=== PATIENT | female | born 1935 | race Caucasian/White ===

== ENCOUNTER 2020-07-26 11:55 | Emergency (ER) | payer MEDICARE, SELFPAY ==
[2020-07-26] VITALS (9 sets, daily range): BP systolic 105–172; BP diastolic 62–80; PULSE 66–82; RESP 16; TEMP 36.6; O2SAT 95–100
--- NOTE | 2020-07-26 12:24 | ECG_ITS ---
Measurements Intervals [place] Rate: 68 P: 44 PA: 147 QRS: 2 QRSD: 90 T: 4 QT: 397 QTc: 425 Interpretive Statements SINUS RHYTHM VOLTAGE CRITERIA FOR LVH NONSPECIFIC T-WAVE ABNORMALITY BASELINE WANDER- AVF BORDERLINE ECG Electronically Signed On 07-26-2020 12:27:04 SATELLITE TV TECHNICIAN INSTALLER by Jama Tavarez D.O.
[2020-07-26 13:05] LABS: Basophils Percent Auto 0.3 % (0.2-1.2); Eosinophils Absolute Auto 0.1 K/mm3 (0-0.3); Hematocrit 35.7 % (37.0-47.0); Hemoglobin 11.6 g/dL (12.0-15.0); Immature Granulocyte Absolute 0.03 K/mm3 (0.00-0.031); Immature Granulocyte Percent A 0.3 % (0-0.5); Lymphocytes Absolute Auto 0.85 K/mm3 (0.9-3.2); Lymphocytes Percent Auto 9.6 % (18.3-44.2); Mean Corpuscular HGB Conc 32.5 g/dl (32-36); Mean Corpuscular Hemoglobin 29.2 pg (26-34); Mean Corpuscular Volume 89.9 fl (80-100); Mean Platelet Volume 11.1 fl (7.4-10.4); Monocytes Absolute Auto 0.5 K/mm3 (0.1-0.6); Monocytes Percent Auto 5.4 % (2.6-8.5); Neutrophils Absolute Auto 7.4 K/mm3 (1.3-6.7); Neutrophils Percent Auto 83.4 % (45.5-73.1); Platelet Count Result 172 k/mm3 (150-375); Red Blood Count 3.97 M/mm3 (4.2-5.4); Red Cell Distribution Width 13.8 % (11.5-14.5); White Blood Count 8.9 K/mm3 (4.5-10.0)
[2020-07-26 13:16] LABS: Anion Gap 6 mmol/L (8-16); Blood Urea Nitrogen 18 mg/dL (7-17); Calcium 8.9 mg/dL (8.4-10.2); Carbon Dioxide 30 mmol/L (22-30); Chloride 102 mmol/L (98-107); Estimated CRCL calculation 34 ml/min; Estimated Glomerular Filt Rate 53; Glucose 131 mg/dL (65-105); Potassium 3.9 mmol/L (3.4-5.0); Sodium 138 mmol/L (137-145)
[2020-07-26] MEDS: LACTATED RINGERS 1,000 ML 999 ML IV CONT (14:49)
--- NOTE | 2020-07-26 15:17 | PC.NURSE ---
FOOD TRAY ORDERED FOR PT'
--- NOTE | 2020-07-26 15:28 | ED.DIZZY ---
HPI - Dizziness General Chief Complaint: Syncope Stated Complaint: syncopal Time Seen by Provider: 07/26/20 13:06 Source: patient Mode of arrival: ambulatory Limitations: no limitations History of Present Illness HPI Narrative: 85-year-old lady presents to the emergency department with complaints of feeling dizzy and nearly passing out. Patient states that she was at the [employer], after she was done getting her hair fixed she went to go stand up and nearly fell into the person sitting next to her. She endorses dizziness at this time, denies any lightheadedness or actually losing consciousness. Patient notes her has been sick at home as well as her daughter and she has been the primary caregiver for the both of them. Patient notes that she has not eaten or drank much today at all. Related Data Allergies Allergy/AdvReac Type Severity Reaction Status Date / Time Penicillins Allergy Hives Verified 07/26/20 12:24 Sulfa (Sulfonamide Allergy Hives Verified 07/26/20 12:24 Antibiotics) Review of Systems Review of Systems: Narrative: CONSTITUTIONAL: Denies fever, chills, or sweats. EYES: Denies visual changes, redness, or discharge. ENT: Denies rhinorrhea, congestion, sore throat, or otalgia. CARDIOVASCULAR: Denies chest pain, palpitations, or edema. RESPIRATORY: Denies cough or dyspnea. GASTROINTESTINAL: Denies abdominal pain, nausea, vomiting, or diarrhea. GENITOURINARY: Denies dysuria or hematuria. SKIN: Denies rash or itching. MUSCULOSKELETAL: Denies back pain, joint pain, or myalgia. NEUROLOGIC: Denies headache, numbness, dizziness, or weakness. PSYCHIATRIC: Denies anxiety or depression. Exam Narrative: Exam Narrative: GENERAL: Well-appearing, well-nourished, and in no acute distress. HEAD: Normocephalic, atraumatic. EYES: PERRLA and EOMI. ENT: Nares clear, no rhinorrhea or epistaxis. Mucous membranes moist. Oropharynx without tonsillar hypertrophy exudate or other lesions. Bilateral TMs pearly espitia nonbulging NECK: Supple. No adenopathy or masses. No carotid bruits or JVD CHEST: Clear to auscultation. No respiratory distress. No wheezes rales or rhonchi HEART: Regular rate and rhythm. No murmur heard. Normal peripheral pulses. ABDOMEN: Soft, nontender, nondistended, normal active bowel sounds. EXTREMITIES: Normal range of motion. No edema. SKIN: Warm, dry, no rash. NEURO: No focal deficits. Alert and oriented x3. PSYCH: Normal mood and affect. Course Reevaluation(s) Reevaluation #1: Patient resting comfortably at this time, she notes that after eating she does feel somewhat better, will plan for discharge at this time. Time: 15:30 Vital Signs Vital signs: Vital Signs Temperature 36.6 C 07/26/20 11:59 Pulse Rate 69 07/26/20 11:59 Respiratory Rate 16 07/26/20 11:59 Blood Pressure 105/72 07/26/20 11:59 Pulse Oximetry 100 07/26/20 11:59 Temperature 36.6 C 07/26/20 11:59 Pulse Rate 66 07/26/20 13:08 Respiratory Rate 16 07/26/20 11:59 Blood Pressure 137/65 07/26/20 13:08 Pulse Oximetry 100 07/26/20 11:59 MDM - Dizziness MDM Narrative Medical decision making narrative: In brief this is an 85-year-old female who presented to the emergency department with complaints of a near syncopal episode. Patient was found to be mildly dehydrated and given IV fluids. She also had not eaten yet today, after giving her something to eat patient noted that she felt much better. Medical Records Attestation: I reviewed the patient's medical records. Lab Data Attestation: I reviewed the patient's lab results. Result diagrams: 07/26/20 12:55 07/26/20 12:55 Labs: Lab Results 07/26/20 07/26/20 Range/Units 12:55 12:55 WBC 8.9 (4.5-10.0) K/mm3 RBC 3.97 L (4.2-5.4) M/mm3 Hgb 11.6 L (12.0-15.0) g/dL Hct 35.7 L (37.0-47.0) % MCV 89.9 (80-100) fl MCH 29.2 (26-34) pg MCHC 32.5 (32-36) g/dl RDW 13.8 (11.5-14.5) % Plt Count
== END 2020-07-26 16:30 | disposition home or self-care (01) ==
PROVIDERS: Emergency Medicine; Emergency Provider Emergency Medicine; PCP Internal Medicine
DX: R42 Dizziness and giddiness (principal); R55 Syncope and collapse; E86.0 Dehydration; R94.31 Abnormal electrocardiogram [ECG] [EKG]
CPT/HCPCS: 36415; 80048; 85025; 93005; 96360; 96361; 99284; J7120

== ENCOUNTER 2020-08-15 17:20 | Inpatient (IN) | payer MEDICARE, SELFPAY ==
[2020-08-15] VITALS (7 sets, daily range): BP systolic 119–148; BP diastolic 62–75; PULSE 93–111; RESP 20–32; TEMP 36.6–36.9; O2SAT 85–98; BMI 22.6
--- NOTE | ~2020-08-15 | XR_ITS ---
EXAMINATION: XR chest 1V portable DATE: 09/04/2020 05:48 INDICATION: Respiratory failure TECHNIQUE: frontal view of the chest was obtained. COMPARISON: Chest radiograph dated 09/03/2020 FINDINGS: Endotracheal tube tip 2.4 cm above the zara. Nasogastric tube extends into the stomach. Patchy airspace opacities in the bilateral mid and lower lung zones which appear slightly decreased s digna the prior study even accounting for differences in patient positioning. No pleural effusion or p neumothorax. The cardiomediastinal silhouette is normal. IMPRESSION: 1. Slight decrease in patchy bilateral airspace opacities consistent with pneumonia. Reviewed, dictated and finalized at location A. ING AND VENTILATING DRAFTER IMPRESSION: 1. Slight decrease in patchy bilateral airspace opacities consistent with pneum onia.
--- NOTE | ~2020-08-15 | XR_ITS ---
EXAMINATION: XR chest 1V portable DATE: 08/18/2020 05:57 INDICATION: COVID-19 pneumonia. TECHNIQUE: A single frontal view of the chest was obtained. COMPARISON: Chest single view 08/15/2020 FINDINGS: There are patchy airspace opacities in all lung zones bilaterally. No pleural effusion or p neumothorax. The heart size is normal. IMPRESSION: 1. Worsened diffuse lung disease, consistent with COVID-19 pneumonia. Reviewed, dictated and finalized at location A. TELLER
--- NOTE | ~2020-08-15 | XR_ITS ---
EXAMINATION: XR chest ET placement INDICATION: Shortness of breath, intubation TECHNIQUE: Portable AP chest at 0201 hours COMPARISON: 1232 hours FINDINGS: An endotracheal tube has been inserted which ends 2.6 cm above the zara. The nasogastric tube is followed as far as the stomach. Its tip is beyond the inferior margin of the radiograph. Ther e are unchanged airspace opacities of the mid and lower lung zones. No pleural effusion or pneumothor ax is identified. The cardiomediastinal silhouette is normal. IMPRESSION: 1. Endotracheal tube in adequate position. 2. Stable airspace opacities of the mid and lower lung zones, consistent with pneumonia. Reviewed, dictated and finalized at location A. RICAL CONTROL MACHINE MACHINIST IMPRESSION: 1. Endotracheal tube in adequate position. 2. Stable airspace opacities of the mid and lower lung zones, consistent with p neumonia.
--- NOTE | ~2020-08-15 | XR_ITS ---
XR chest 1V portable 08/15/2020 18:39 Indication: Transient alteration of awareness Procedure: AP portable chest Comparison: No prior studies for comparison. Findings: There is patchy bilateral airspace disease, compatible with pneumonia. No pleural effusion or pneumothorax. No acute osseous abnormality. Impression: 1: Extensive patchy bilateral airspace disease, compatible with pneumonia. Edema less favored. Reviewed, dictated and finalized at location A. LLITE TV INSTALLER Impression: 1: Extensive patchy bilateral airspace disease, compatible with pneumonia. Gerald a less favored.
--- NOTE | ~2020-08-15 | XR_ITS ---
EXAMINATION: XR abdomen NG/feed tube insert DATE: 08/18/2020 09:20 INDICATION: Nasogastric tube placement. TECHNIQUE: A supine view of the abdomen was obtained. COMPARISON: None. FINDINGS: There are no dilated loops of bowel. The nasogastric tube tip is in the first portion of th e duodenum There are patchy airspace opacities throughout the lungs bilaterally. IMPRESSION: 1. Nasogastric tube tip in the first portion of the duodenum. 2. Diffuse lung disease, consistent with COVID-19 pneumonia. Reviewed, dictated and finalized at location A. ROAD BRAKE OPERATOR
--- NOTE | ~2020-08-15 | XR_ITS ---
XR abdomen NG/feed tube rechec INDICATION: Evaluate NG tube position. TECHNIQUE: Limited KUB perform for evaluating NG tube . COMPARISON: 08/18/2020 FINDINGS: NG tube tip in the distal aspect of the stomach. Visualized bowel gas pattern is unremarka ble. IMPRESSION: 1: NG tube tip coiled in the distal aspect of the stomach. 2: Patchy bilateral airspace disease, consistent with pneumonia. Reviewed, dictated and finalized at location A. ARCH DEVELOPMENT MANAGER
--- NOTE | ~2020-08-15 | XR_ITS ---
EXAMINATION: XR abdomen/kub 1V INDICATION: Status post G-tube placement TECHNIQUE: Supine view the abdomen is obtained. COMPARISON: 09/01/2020 FINDINGS: No dilated loops of bowel are evident. The nasogastric tube is in the stomach. Surgical sta ples are seen in left abdomen. The gastrostomy is not well demonstrated but appears to project with i ts tip in the distal stomach. There are patchy opacities of the visualized lung bases. IMPRESSION: 1. Nasogastric and gastrostomy tubes projecting in the stomach. No dilated loops of bowel. Reviewed, dictated and finalized at location A. AVER ORNAMENTAL DESIGN IMPRESSION: 1. Nasogastric and gastrostomy tubes projecting in the stomach. No dilated loop s of bowel.
--- NOTE | ~2020-08-15 | CT_ITS ---
EXAMINATION: CT brain wo con DATE: 08/15/2020 20:32 INDICATION: Transient alteration of awareness. TECHNIQUE: Computed tomography (CT) of the head was performed without intravenous contrast. The dose- length product was 605.33 mGy-cm. Automated exposure control and iterative reconstruction technique w ere employed. COMPARISON: None FINDINGS: There is an extra-axial mass right posterior parietal location near the interhemispheric fi ssure measuring 2.3 x 1.7 x 1.9 cm. This mass is hyperdense and contains internal coarse calcificatio ns. No ventriculomegaly or midline shift. Basilar cisterns are patent. There is a chronic left lacunar in farction. There are scattered moderate periventricular and subcortical white matter changes, most lik jono related to small vessel ischemic disease (microangiopathy). Paranasal sinuses and mastoids are pn eumatized. No depressed skull fractures. No acute hemorrhage, infarction or mass. IMPRESSION: 1. No acute intracranial abnormality. 2: Hyperdense partially calcified mass right posterior parietal location, likely extra-axial. This is most likely benign meningioma. Consider correlation with MRI. 3: Chronic left lacunar infarction. 4: Chronic age-related findings. Reviewed, dictated and finalized at location A. MANAGER IMPRESSION: 1. No acute intracranial abnormality. 2: Hyperdense partially calcified mass right posterior parietal location, likel y extra-axial. This is most likely benign meningioma. Consider correlation with MRI. 3: Chronic left lacunar infarction. 4: Chronic age-related findings.
--- NOTE | ~2020-08-15 | XR_ITS ---
EXAMINATION: XR chest 1V portable DATE: 09/03/2020 05:44 INDICATION: Respiratory failure TECHNIQUE: frontal view of the chest was obtained. COMPARISON: Chest radiograph dated 09/02/2020 FINDINGS: Endotracheal tube tip 2.8 cm above the zara. Nasogastric tube extends below the left hemidiaphragm with distal tip collimated off the study. Slight increase in the patchy airspace opacities throughout both lungs relatively sparing apices. No pleural effusion or pneumothorax. The cardiomediastinal silhouette is normal. IMPRESSION: 1. Sliding increase in patchy bilateral airspace opacities consistent with pneumonia. Reviewed, dictated and finalized at location A. SYSTEM MAINTENANCE WORKER IMPRESSION: 1. Sliding increase in patchy bilateral airspace opacities consistent with pneu monia.
--- NOTE | ~2020-08-15 | MR_ITS ---
EXAMINATION: MR brain/brain stem wo/w con DATE: 08/20/2020 17:19 INDICATION: Altered mental status TECHNIQUE: Magnetic resonance imaging (MRI) of the brain and brainstem was performed without and with 10 mL Multihance intravenous contrast. Sequences included sagittal and axial T1-weighted SE, axial d iffusion-weighted FS SE, axial T2*-weighted GRE, axial T2-weighted FLAIR, and axial T2-weighted FSE. Postcontrast axial, sagittal and coronal T1-weighted SE was obtained. Apparent diffusion coefficient (ADC) maps were created. COMPARISON: Head CT dated 08/15/2020 FINDINGS: There are multiple small regions of restricted diffusion with corresponding localized cytotoxic edema in the right frontal, parietal and temporal lobes consistent with acute infarcts. Distribution sugge sts short emboli in the right middle cerebral artery vascular distribution. Small old infarcts in the left cerebellar hemisphere and along the inferomedial left temporal lobe. No intracranial hemorrhage . There is a 2.0 x 1.8 x 1.9 cm avidly enhancing extra-axial mass which appears to arise from the rig ht side of the posterior falx and splays one of the sulci at the posterior medial right parietal lobe . There is no evidence edema in the adjacent brain parenchyma. There is also some subtle calcificatio n of the mass on the prior CT. Consultation findings would be most consistent with a meningioma. No o ther abnormal masses identified. There are scattered areas of nonspecific increased T2-weighted signa l intensity in the cerebral white matter, predominantly involving the deep and periventricular white matter. There are no intraparenchymal signal abnormalities seen on the other pulse sequences. Symmetr ic prominence of the sulci and ventricles consistent with moderate age-appropriate diffuse cerebral v olume loss. There are no abnormal extra-axial fluid collections. Flow voids are seen in the cerebral arteries on the T2-weighted sequences consistent with their expected patency. Changes of bilateral in traocular lens replacement. Right mastoid effusion which is new since the prior CT. Mild mucoperioste al thickening in the bilateral ethmoid sinuses. Nasogastric tube is seen at the right nares. IMPRESSION: 1. Multiple small acute to early subacute infarcts in the right frontal, parietal and temporal lobes consistent with shower of emboli in the right middle cerebral artery vascular distribution. 2. 2.0 cm enhancing extra-axial dural-based mass most likely a meningioma along the right side of the posterior falx and exerting local mass effect upon the adjacent posterior medial side of the right p arietal lobe. 0.2. Small old infarcts at the inferomedial left temporal lobe and at the left cerebell ar hemisphere. 4. Age-related changes including moderate diffuse on loss and moderate scattered nonspecific white ma tter T2 hyperintensity consistent with chronic small vessel ischemic disease. Reviewed, dictated and finalized at location A. REPORT WRITER IMPRESSION: 1. Multiple small acute to early subacute infarcts in the right frontal, pariet al and temporal lobes consistent with shower of emboli in the right middle cere bral artery vascular distribution. 2. 2.0 cm enhancing extra-axial dural-based mass most likely a meningioma along the right side of the posterior falx and exerting local mass effect upon the a djacent posterior medial side of the right parietal lobe. 0.2. Small old infarc ts at the inferomedial left temporal lobe and at the left cerebellar hemisphere . 4. Age-related changes including moderate diffuse on loss and moderate scattere d nonspecific white matter T2 hyperintensity consistent with chronic small vess el ischemic disease.
--- NOTE | ~2020-08-15 | XR_ITS ---
EXAMINATION: XR chest 1V portable INDICATION: Respiratory failure TECHNIQUE: Portable AP chest at 0517 hours COMPARISON: 09/01/2020 FINDINGS: The endotracheal tube ends approximately 1.9 cm above the zara. The nasogastric tube is f ollowed as far as the stomach. Its tip is beyond the inferior margin of the radiograph. Patchy opacit ies in the midlung zones and right lung base persist but have improved. There is more focal consolida tion developing in the left lower lobe. There is no pleural effusion or pneumothorax. The cardiomedia stinal silhouette is normal. IMPRESSION: 1. Developing focal consolidation in the left lower lobe and improving patchy airspace opacities in t he midlung zones and right lung base, consistent with pneumonia. Reviewed, dictated and finalized at location A. CORRECTIONAL IMPRESSION: 1. Developing focal consolidation in the left lower lobe and improving patchy a irspace opacities in the midlung zones and right lung base, consistent with pne umonia.
--- NOTE | ~2020-08-15 | XR_ITS ---
EXAMINATION: XR chest 1V portable INDICATION: Shortness of breath TECHNIQUE: Portable AP chest at 0032 hours COMPARISON: 08/22/2020 FINDINGS: Airspace opacities persist in the mid and lower lung zones with interval worsening. There i s no pleural effusion or pneumothorax. The cardiomediastinal silhouette is normal. IMPRESSION: 1. Diffuse lung disease with interval worsening, consistent with pneumonia and/or pulmonary edema and /or acute respiratory distress syndrome (ARDS). Reviewed, dictated and finalized at location A. S CONSOLE OPERATOR TRACK IMPRESSION: 1. Diffuse lung disease with interval worsening, consistent with pneumonia and/ or pulmonary edema and/or acute respiratory distress syndrome (ARDS).
--- NOTE | ~2020-08-15 | US_ITS ---
EXAMINATION: US pelvic limited INDICATION: Possible pelvic mass TECHNIQUE: High-resolution pelvic ultrasound was performed. COMPARISON: None available FINDINGS: There is a Tavares catheter in the bladder. An approximately 3.6 x 2.5 cm filling defect with a central hypoechoic component is seen in the bladder of unclear significance. This appears to demon strate vascularity in the peripheral hyperechoic component. No additional pelvic mass is identified. IMPRESSION: 1. Filling defect in the urinary bladder of unclear significance. Findings could reflect mass or poss ibly a benign finding such as a ureterocele. Consider further evaluation with CT urogram. Reviewed, dictated and finalized at location A. CTION CONTROL PRACTITIONER IMPRESSION: 1. Filling defect in the urinary bladder of unclear significance. Findings coul d reflect mass or possibly a benign finding such as a ureterocele. Consider fur ther evaluation with CT urogram.
--- NOTE | ~2020-08-15 | XR_ITS ---
XR chest 1V portable 08/22/2020 13:41 Indication: Shortness of breath Procedure: AP portable chest Comparison: 08/18/2020 Findings: Improved extensive bilateral airspace disease, compatible with pneumonia. NG tube in the st omach. No acute osseous abnormality. Impression: 1: Improved bilateral airspace disease, consistent with resolving pneumonia. Reviewed, dictated and finalized at location B. IPLE DRUM SANDER HELPER Impression: 1: Improved bilateral airspace disease, consistent with resolving pneumonia.
--- NOTE | ~2020-08-15 | XR_ITS ---
EXAMINATION: XR abdomen NG/feed tube insert INDICATION: Nasogastric tube placement TECHNIQUE: Portable AP KUB-NG at 0201 hours COMPARISON: 08/29/2020 FINDINGS: The tip of the nasogastric tube is in the stomach. The proximal side port is at the gastroe sophageal junction. There are new midline surgical aayush. Bibasilar airspace opacities are present, left greater than right. IMPRESSION: 1. Tip of the nasogastric tube in the stomach with the proximal side port at the gastroesophageal dustin ction. Tube can be safely advanced 2 to 3 cm which is recommended. 2. Bibasilar airspace opacities, left greater than right, consistent with atelectasis versus pneumoni a. Reviewed, dictated and finalized at location A. STIGATION DIVISION SERGEANT IMPRESSION: 1. Tip of the nasogastric tube in the stomach with the proximal side port at th e gastroesophageal junction. Tube can be safely advanced 2 to 3 cm which is rec ommended. 2. Bibasilar airspace opacities, left greater than right, consistent with atele ctasis versus pneumonia.
--- NOTE | ~2020-08-15 | XR_ITS ---
EXAMINATION: XR G tube evaluation w imaging INDICATION: G-tube placement TECHNIQUE: Supine view the abdomen is obtained on two radiographs. Omnipaque 350 water-soluble contra st was injected through the gastrostomy. COMPARISON: 08/19/2020 FINDINGS: The G-tube is in place. No dilated loops of bowel are evident. The visualized lung bases ar e clear. IMPRESSION: 1. G-tube in place. Reviewed, dictated and finalized at location A. TRY PACKER IMPRESSION: 1. G-tube in place.
--- NOTE | ~2020-08-15 | US_ITS ---
EXAMINATION: US carotid duplex BI DATE: 08/21/2020 09:04 INDICATION: CVA TECHNIQUE: Grayscale, color Doppler, and pulsed Doppler images of the cervical carotid arteries were obtained. The degree of vessel stenosis is placed in one of the following categories: normal, <50%, 5 0-69%, >=70% but less than near-occlusion, near-occlusion, or total occlusion. Note that percent sten osis relative to normal distal artery lumen diameter is indirectly measured from velocity measurement s as described by Naldo, et al. Radiology 2003; 229:[id number]. Notes: Normal: Peak systolic velocity <125 centimeters/sec and no plaque <50%. Peak systolic velocity <125 ( EDV <40; ICA/CCA PSV ratio <2.0; used these factors only a tandem lesions or low cardiac output or co ntralateral disease) 50-69 %: PSV 125-230 (EDV 40-100; ratio 2-4) >= 70% but less than near occlusion: PSV greater than 230 (EDV > 100; ratio> 4.0) Near Occlusion: PSV that is variable; markedly narrowed lumen Occlusion: Absent flow on color/spectral Doppler and no lumen on espitia scale. COMPARISON: None. FINDINGS: RIGHT: The right common carotid artery (CCA) peak systolic velocity (PSV) is 124 cm/s. The right internal ca rotid artery (ICA) PSV is 99 cm/s. The right ICA end-diastolic velocity (EDV) is 18 cm/s. The right I CA/CCA PSV ratio is 0.8. The external carotid artery (ECA) PSV is 60 cm/s. There is antegrade flow in the right vertebral artery. LEFT: The left CCA PSV is 93 cm/s. The left ICA PSV is 63 cm/s. The left ICA EDV is 17 cm/s. The left ICA/C CA PSV ratio is 0.7. The ECA PSV is 67 cm/s. There is antegrade flow in the left vertebral artery. IMPRESSION: 1. Less than 50% stenosis in the right internal carotid artery by sonographic criteria. 2. Less than 50% stenosis in the left internal carotid artery by sonographic criteria. Reviewed, dictated and finalized at location B. YTIC PROGRAMMER IMPRESSION: 1. Less than 50% stenosis in the right internal carotid artery by sonographic santana alfaro. 2. Less than 50% stenosis in the left internal carotid artery by sonographic umesh glaser.
--- NOTE | 2020-08-15 17:33 | ECG_ITS ---
Measurements Intervals [place] Rate: 116 P: LA: 0 QRS: 50 QRSD: 81 T: 50 QT: 326 QTc: 455 Interpretive Statements SINUS TACHYCARDIA ATRIAL PREMATURE COMPLEX BORDERLINE ST ABNORMALITY- ANTEROLAT/INF LEADS ABNORMAL ECG Electronically Signed On 08-15-2020 18:53:46 TESTER OPERATOR by Jama Tavarez D.O.
--- NOTE | 2020-08-15 17:48 | ED.AMS ---
HPI - Altered Mental Status General Chief Complaint: Altered Mental Status Stated Complaint: decreased loc Time Seen by Provider: 08/15/20 17:27 History of Present Illness HPI narrative: Brought in by EMS from home. She is too weak to move and unable to speak. reportedly told EMS that she has been like this for awhile. It is believed that she tested positive for COVID-19. No one was able to provide details of when or where this was done. She is not able to provide any history. History limited by medical cndition. Related Data Home Medications Medication Instructions Recorded Confirmed amlodipine 10 mg PO DAILY 08/15/20 08/15/20 rosuvastatin 20 mg PO DAILY 08/15/20 08/15/20 Allergies Allergy/AdvReac Type Severity Reaction Status Date / Time Penicillins Allergy Hives Verified 07/26/20 12:24 Sulfa (Sulfonamide Allergy Hives Verified 07/26/20 12:24 Antibiotics) Review of Systems Review of Systems: ROS unobtainable: Yes unobtainable due to medical condition PMFSH Social History Social History Smoking status: Never smoker Alcohol intake: never Substance use: never Gender identity (if verbalized by the patient): Female Spiritual care concerns: No Comments history unobtainable Exam Const: General: ill appearing Nutritional Appearance: thin Other: mild distress HENMT: Other: MM extremely dry and cracked Eyes: Pupils: Equal, round and reactive pupils present EOM: EOMs intact bilaterally Resp: Effort & Inspection: normal respiratory effort Auscultation: crackles Cardio: Rate: tachycardic Rhythm: regular rhythm GI: GI Palp: Yes Soft to palpation and Yes Tenderness to palpation present (GI) (suprapubic) Skin: General skin exam: no pallor Neuro: General: moves all extremities Other: following simple commands. Uniform weakness in all extremities Extrem: General: no edema Course Vital Signs Vital signs: Vital Signs Temperature 36.8 C 08/15/20 17:55 Pulse Rate 110 H 08/15/20 17:55 Respiratory Rate 32 H 08/15/20 17:55 Blood Pressure 119/62 08/15/20 17:55 Pulse Oximetry 85 L 08/15/20 17:55 Temperature 36.9 C 08/15/20 22:35 Pulse Rate 94 08/15/20 22:35 Respiratory Rate 22 H 08/15/20 22:35 Blood Pressure 131/72 08/15/20 22:35 Pulse Oximetry 98 08/15/20 23:58 MDM - Altered Mental Status Differential Diagnosis Differential diagnosis: Likely delirium, dementia, hypoglycemia, sepsis and other (dehydration, COVID-19, UTI) Medical Records Attestation: I reviewed the patient's medical records. Lab Data Attestation: I reviewed the patient's lab results. Result diagrams: 08/15/20 17:51 08/15/20 23:23 Labs: Lab Results 08/15/20 08/15/20 08/15/20 Range/Units 17:51 17:51 17:51 WBC 12.6 H (4.5-10.0) K/mm3 RBC 4.52 (4.2-5.4) M/mm3 Hgb 13.1 (12.0-15.0) g/dL Hct 40.4 (37.0-47.0) % MCV 89.4 (80-100) fl MCH 29.0 (26-34) pg MCHC 32.4 (32-36) g/dl RDW 14.0 (11.5-14.5) % Plt Count 450 H D (150-375) k/mm3 MPV 11.4 H (7.4-10.4) fl Immature Gran % (Auto) 0.5 (0-0.5) % Neut % (Auto) 88.9 H (45.5-73.1) % Lymph % (Auto) 8.2 L (18.3-44.2) % Beckham % (Auto) 1.9 L (2.6-8.5) % Eos % (Auto) 0.3 (0-4.4) % Baso % (Auto) 0.2 (0.2-1.2) % Lymph # (Auto) 1.03 (0.9-3.2) K/mm3 Beckham # (Auto) 0.2 (0.1-0.6) K/mm3 Eos # (Auto) 0.0 (0-0.3) K/mm3 Baso # (Auto) 0.0 (0.0-0.1) K/mm3 Abs Immat Gran (auto) 0.06 H (0.00-0.031) K/mm3 Absolute Neuts (auto) 11.2 H (1.3-6.7) K/mm3 Absolute Nucleated RBC 0.0 (0.0-0.012) K/mm3 Nucleated RBC % 0.0 (0.0-0.2) % PT 16.3 H (11.1-14.7) Seconds INR 1.3 APTT 32.6 (22.3-36.8) SECONDS Sodium 152 H (137-145) mmol/L Potassium 4.2 (3.4-5.0) mmol/L Chloride 113 H (98-107) mmol/L Carbon Dioxide 24 (22-30) mmol/L Anion Gap 15 (8-16) mmol/L BUN 69 H D (7-17)
[2020-08-15 18:05] LABS: Basophils Percent Auto 0.2 % (0.2-1.2); Eosinophils Percent Auto 0.3 % (0-4.4); Hematocrit 40.4 % (37.0-47.0); Hemoglobin 13.1 g/dL (12.0-15.0); Immature Granulocyte Absolute 0.06 K/mm3 (0.00-0.031); Immature Granulocyte Percent A 0.5 % (0-0.5); Lymphocytes Absolute Auto 1.03 K/mm3 (0.9-3.2); Lymphocytes Percent Auto 8.2 % (18.3-44.2); Mean Corpuscular HGB Conc 32.4 g/dl (32-36); Mean Corpuscular Volume 89.4 fl (80-100); Mean Platelet Volume 11.4 fl (7.4-10.4); Monocytes Absolute Auto 0.2 K/mm3 (0.1-0.6); Monocytes Percent Auto 1.9 % (2.6-8.5); Neutrophils Absolute Auto 11.2 K/mm3 (1.3-6.7); Neutrophils Percent Auto 88.9 % (45.5-73.1); Platelet Count Result 450 k/mm3 (150-375); Red Blood Count 4.52 M/mm3 (4.2-5.4); White Blood Count 12.6 K/mm3 (4.5-10.0)
[2020-08-15 18:12] LABS: Add Urine Microscopic? YES; Amorphous Sediment Urine Few; Appearance Urine Cloudy (Clear); Bilirubin Urine Negative (Negative); Blood Urine Negative (Negative); Color Urine Amber (Yellow); Glucose Urine UA Negative (Negative); Ketones Urine Trace mg/dL (Negative); Leukocyte Esterase Ur Negative LEU/UL (Negative); Mucus Urine Heavy /lpf; Nitrate Urine Negative (Negative); Protein Urine 2+ mg/dL (Negative); Specific Grav Ur 1.026 (1.001-1.035); Squamous Epithelial Cell Urine Moderate /hpf (Few)
[2020-08-15] MEDS: SODIUM CHLORIDE 0.9% IV 1,000 ML 999 ML IV CONT ×2 (18:12→18:30)
[2020-08-15 18:13] LABS: Lactic Acid Reflex 3.9 mmol/L (0.7-2.1)
[2020-08-15 18:19] LABS: INR 1.3; Prothrombin Time 16.3 Seconds (11.1-14.7)
[2020-08-15 18:20] LABS: Alanine Aminotransferase 49 U/L (4-35); Albumin Level 3.8 g/dL (3.5-5.1); Alkaline Phosphatase 146 U/L (38-126); Anion Gap 15 mmol/L (8-16); Aspartate Amino Transferase 56 U/L (14-36); Bilirubin,Total 1.3 mg/dL (0.2-1.3); Blood Urea Nitrogen 69 mg/dL (7-17); Calcium 9.2 mg/dL (8.4-10.2); Carbon Dioxide 24 mmol/L (22-30); Chloride 113 mmol/L (98-107); Estimated CRCL calculation 25 ml/min; Estimated Glomerular Filt Rate 43; Glucose 240 mg/dL (65-105); Lipase 38 U/L (23-300); Potassium 4.2 mmol/L (3.4-5.0); Sodium 152 mmol/L (137-145)
[2020-08-15 18:22] LABS: Partial Thromboplastin Time 32.6 SECONDS (22.3-36.8)
[2020-08-15 18:26] LABS: Troponin I 0.012 ng/mL (0.000-0.034)
[2020-08-15 18:30] LABS: CRP 24.8 mg/dL (<1.0)
[2020-08-15 19:24] LABS: Thyroid Stimulating Hormone Reflex 0.792 uIU/mL (0.465-4.68)
--- NOTE | 2020-08-15 20:22 | PC.NURSE ---
pt to CT at this time
[2020-08-15 21:00] LABS: Reflex Lactic Acid Yes or No Add Lactic
[2020-08-15 21:25] LABS: Lactic Acid 1.5 mmol/L (0.7-2.1)
--- NOTE | 2020-08-15 21:44 | PC.NURSE ---
Spoke with patients . He states he called EMS on both his and daughter today. He states that mckenzie hasnt been feeling well all week. He has not been able to get her to eat or drink very much. He decided to call today when he was unable to keep her awake and she wasnt able to talk to him. States that she is a full code at this time. notified.
[2020-08-15] MEDS: LACTATED RINGERS 1,000 ML 75 ML IV CONT (22:03)
--- NOTE | 2020-08-15 23:05 | PM.IMHP ---
H&P: HPI History of Present Illness Date/Time: 08/15/20 23:05 Chief Complaint: Found down at home. Narrative: This is an unfortunate 85 year old Diabetic female who was brought to the hospital after being found down for an undetermined amount of time. The patient's daughter reports that she has been bed bound for the past 3 weeks and believes that the patient might have had COVID-19. The patient was found to be covered in dry feces on arrival to the ER. She also is encephalopathic and so dry that she attempts to speak but has a hard time getting any words out. The patient was evaluated in the ER and found to be severely dehydrated with a serum sodium of 152 mg/dl, elevated WBC of 12,600, and elevated Cr. of 1.2. The patient was saturating in the mid 80s and was placed on supplemental oxygen. CXR revealed extensive patchy bilateral airspace disease, compatible with pneumonia. She was started on antibiotics and swabbed for COVID-19. No further history is obtainable from the patient secondary to her encephalopathy. Review of Systems Review of Systems: ROS unobtainable: Yes unobtainable due to medical condition and unobtainable due to mental status PMFSH Social History Social History Smoking status: Never smoker Alcohol intake: never Substance use: never Gender identity (if verbalized by the patient): Female Spiritual care concerns: No Comments Past medical/surgical/family/social histories are not obtainable from the patient due to her encephalopathy. Meds Home Medications and Allergies Home Medications Medication Instructions Recorded Confirmed Type amlodipine 10 mg PO DAILY 08/15/20 08/15/20 History rosuvastatin 20 mg PO DAILY 08/15/20 08/15/20 History Allergies Allergy/AdvReac Type Severity Reaction Status Date / Time Penicillins Allergy Hives Verified 07/26/20 12:24 Sulfa (Sulfonamide Allergy Hives Verified 07/26/20 12:24 Antibiotics) Vital Signs Vital Signs - 24 hr 08/15/20 17:55 08/15/20 18:03 08/15/20 21:06 Temperature 36.8 C Pulse Rate 110 H 111 H Respiratory Rate 32 H 32 H Blood Pressure 119/62 Pulse Oximetry 85 L 91 92 08/15/20 21:49 08/15/20 22:19 Temperature 36.6 C Pulse Rate 93 Respiratory Rate 20 Blood Pressure 148/75 H Pulse Oximetry 90 94 Exam Const: General: awake and ill appearing Nutritional Appearance: thin Orientation/consciousness: Other orientation findings (encephalopathic+ ) HENMT: Head: normal to inspection General nose exam: Normal external nose present Face and sinus: normal facial exam Mouth: Yes dry mucous membranes Eyes: Pupils: Equal, round and reactive pupils present Neck: Neck: supple and no JVD Thyroid: thyroid normal Lymphatic: lymphadenopathy not noted Resp: Effort & Inspection: normal respiratory effort Auscultation: rales bilateral Cardio: Rate: tachycardic Rhythm: regular rhythm Heart sounds: no murmurs GI: Inspection: normal to inspection Auscultation: normal bowel sounds Skin: General skin exam: normal color and erythema (on buttocks b/l++ ) Neuro: General: other (encephalopathic++ ) Cranial nerves: Yes Equal, round and reactive pupils present Extrem: General: normal to inspection and no edema H&P: Results Labs Labs: Short CBC 08/15/20 Range/Units 17:51 WBC 12.6 H (4.5-10.0) K/mm3 Hgb 13.1 (12.0-15.0) g/dL Hct 40.4 (37.0-47.0) % Plt Count 450 H D (150-375) k/mm3 BMP 08/15/20 17:51 Sodium 152 H Potassium 4.2 Chloride 113 H Carbon Dioxide 24 BUN 69 H D Creatinine 1.20 H Glucose 240 H Calcium 9.2 Cardiac Enzymes 08/15/20 Range/Units 17:51 Troponin I 0.012 (0.000-0.034) ng/mL Liver Function 08/15/20 Range/Units 17:51 Total Bilirubin 1.3 (0.2-1.3) mg/dL AST 56 H (14-36) U/L ALT 49 H (4-35) U/L Alkaline Phosphatase 146 H (38-126) U/L Albumin 3.8 (3.5-5.1) g/dL Urine 08/15/20 Range/Units 17:52 Ur
[2020-08-15 23:40] LABS: Creatine Kinase 79 U/L (30-135)
[2020-08-16] VITALS (8 sets, daily range): BP systolic 135–154; BP diastolic 56–71; PULSE 87–106; RESP 16–20; TEMP 36.1–36.6; O2SAT 93–100; BMI 22.6
[2020-08-16 00:13] LABS: Anion Gap 10 mmol/L (8-16); Blood Urea Nitrogen 55 mg/dL (7-17); Calcium 7.6 mg/dL (8.4-10.2); Carbon Dioxide 23 mmol/L (22-30); Chloride 117 mmol/L (98-107); Estimated CRCL calculation 33 ml/min; Estimated Glomerular Filt Rate 53; Glucose 302 mg/dL (65-105); Potassium 3.3 mmol/L (3.4-5.0); Sodium 150 mmol/L (137-145)
[2020-08-16 05:29] LABS: Glucose Point of Care 193 (65-105)
--- NOTE | 2020-08-16 08:45 | PCSTNOTE ---
Attempted to schedule MBS, not able to complete until COVID 19 is ruled out.
[2020-08-16 09:23] LABS: Folic Acid > 20.0 ng/mL (2.76->20); Vitamin B12 > 1000.0 pg/mL (239-931)
[2020-08-16] MEDS: LACTATED RINGERS 1,000 ML 75 ML IV CONT (11:47)
--- NOTE | 2020-08-16 15:38 | PM.IMPN ---
Progress Note: A&P Assessment and Plan (1) Acute respiratory failure with hypoxia: Code(s): J96.01 - Acute respiratory failure with hypoxia Status: Acute Assessment and Plan: Appears to be secondary to COVID pneumonia. Continue supplemental oxygen and wean off as tolerated. Continue treatment for pneumonia. RT assess and treat. COVID (+) - currently on 4L. Will start Decadron and Remdesivir. ALT normal. eGFR 43, 53, 60 (2) Acute encephalopathy: Code(s): G93.40 - Encephalopathy, unspecified Status: Acute Assessment and Plan: CT brain showing no acute findings. B12/Folate/TSH normal. Could be related to the acute pneumonia. Continue Neuro checks. Will need brain MRI if persistent symptoms and negative COVID. Neurology consultation. NPO, swallow evaluation in am. (3) Pneumonia: Qualifiers: Laterality: unspecified laterality Lung location: unspecified part of lung Pneumonia type: due to unspecified organism Qualified Code(s): J18.9 - Pneumonia, unspecified organism Code(s): J18.9 - Pneumonia, unspecified organism Status: Acute Assessment and Plan: No fevers but WBC elevated at 12K and CRP 25. CXR showing extensive patchy bilateral airspace disease. Probably COVID pneumonia but continue IV antibiotics covering for bacterial etiolgoies. Continue supportive care. Continue oxygen supplementation and wean off as tolerated. Continue bronchodilators. Humidify O2. Good oral care. (4) Suspected 2019 novel coronavirus infection: Code(s): Z20.822 - Contact with and (suspected) exposure to COVID-19 Status: Acute Assessment and Plan: No fevers but hypoxic with CXR showing extensive patchy bilateral airspace disease. Patient has been swabbed for COVID-19. Continue droplet isolation. Continue supportive care. (5) Leukocytosis: Qualifiers: Leukocytosis type: unspecified Qualified Code(s): D72.829 - Elevated white blood cell count, unspecified Code(s): D72.829 - Elevated white blood cell count, unspecified Status: Acute Assessment and Plan: WBC slightly elevated at 12.6K. CRP at 25. Secondary to pneumonia. Monitor CBCD. (6) Acute renal failure: Qualifiers: Acute renal failure type: unspecified Qualified Code(s): N17.9 - Acute kidney failure, unspecified Code(s): N17.9 - Acute kidney failure, unspecified Status: Acute Assessment and Plan: Cr mildly elevated at 1.2 on admission. Appears to be secondary to volume depletion and dehydration. Cr normal now with IV fluid challenge. Na higher now and potassium low. Change to maintenance fluids. Repeat Na level. Check cortisol, TSH normal. (7) Hypernatremia: Code(s): E87.0 - Hyperosmolality and hypernatremia Status: Acute Assessment and Plan: Appears to be secondary to dehydration. As above. (8) Transaminitis: Code(s): R74.01 - Elevation of levels of liver transaminase levels Status: Acute Assessment and Plan: May be secondary to COVID pneumonia. Levels better today. Monitore periodically (9) Abnormal urinalysis: Code(s): R82.90 - Unspecified abnormal findings in urine Status: Acute Assessment and Plan: UA noted. UCx pending. Continue IV antibiotics. (10) Diabetes mellitus: Qualifiers: Diabetes mellitus complication status: without complication Diabetes mellitus nursing home insulin use: without nursing home use Diabetes mellitus type: type 2 Qualified Code(s): E11.9 - Type 2 diabetes mellitus without complications Code(s): E11.9 - Type 2 diabetes mellitus without complications Status: Chronic Assessment and Plan: The patient's blood glucose was reviewed on 08/16 Glucose elevated at times. Start AccuCheks covering with sliding scale. Hypoglycemia protocol will be available as needed. Check A1c.
[2020-08-16 15:40] LABS: Hematocrit 29.9 % (37.0-47.0); Hemoglobin 9.7 g/dL (12.0-15.0); Mean Corpuscular HGB Conc 32.4 g/dl (32-36); Mean Corpuscular Hemoglobin 29.4 pg (26-34); Mean Corpuscular Volume 90.6 fl (80-100); Mean Platelet Volume 10.8 fl (7.4-10.4); Platelet Count Result 279 k/mm3 (150-375); Red Cell Distribution Width 13.8 % (11.5-14.5); White Blood Count 7.2 K/mm3 (4.5-10.0)
[2020-08-16 15:49] LABS: Lactic Acid Reflex 1.7 mmol/L (0.7-2.1)
[2020-08-16 16:50] LABS: Alanine Aminotransferase 33 U/L (4-35); Albumin Level 2.7 g/dL (3.5-5.1); Alkaline Phosphatase 97 U/L (38-126); Anion Gap 5 mmol/L (8-16); Aspartate Amino Transferase 43 U/L (14-36); Bilirubin,Total 0.6 mg/dL (0.2-1.3); Blood Urea Nitrogen 39 mg/dL (7-17); Calcium 7.9 mg/dL (8.4-10.2); Carbon Dioxide 27 mmol/L (22-30); Chloride 122 mmol/L (98-107); Estimated CRCL calculation 36 ml/min; Estimated Glomerular Filt Rate 60; Glucose 193 mg/dL (65-105); Phosphorus 2.7 mg/dL (2.5-4.5); Potassium 3.2 mmol/L (3.4-5.0); Sodium 154 mmol/L (137-145)
[2020-08-16 16:52] LABS: Creatine Kinase 87 U/L (30-135)
[2020-08-16 17:37] LABS: SARS-CoV-2 RNA PCR Positive
[2020-08-16] MEDS: KCL 20 MEQ/D5/0.45% SOD CHL 1,000 ML 70 ML IV CONT (18:32)
[2020-08-16] MEDS: DEXAMETHASONE SOD PHOS INJ 4 MG/ML VIAL 6 MG IV PUSH (18:32)
[2020-08-16 18:55] LABS: Alanine Aminotransferase 33 U/L (4-35); Estimated CRCL calculation 36 ml/min; Estimated Glomerular Filt Rate 60
[2020-08-16] MEDS: REMDESIVIR 200 MG/NS 250 ML 200 MG/250 ML BAG 250 MG IVPB (19:00)
[2020-08-16 22:52] LABS: Sodium 152 mmol/L (137-145)
[2020-08-16 23:01] LABS: Glucose Point of Care 195 (65-105)
[2020-08-17] VITALS (7 sets, daily range): BP systolic 135–158; BP diastolic 74–91; PULSE 81–101; RESP 20–22; TEMP 36.2–36.7; O2SAT 91–100
[2020-08-17 02:20] LABS: Glucose Point of Care 321 (65-105)
[2020-08-17] MEDS: INSULIN ASPART (*BKC) 100 UNITS/ML SUB-Q ×4 (02:41→17:32)
[2020-08-17 05:41] LABS: Glucose Point of Care 283 (65-105)
[2020-08-17 06:38] LABS: Alanine Aminotransferase 30 U/L (4-35); Estimated CRCL calculation 40 ml/min; Estimated Glomerular Filt Rate > 60
[2020-08-17 07:01] LABS: Cortisol Random 6.97 ug/dL
[2020-08-17 07:02] LABS: Hemoglobin A1C 6.2 % (<5.7)
[2020-08-17] MEDS: DEXAMETHASONE SOD PHOS INJ 4 MG/ML VIAL 6 MG IV PUSH (10:15)
--- NOTE | 2020-08-17 11:01 | PCSTNOTE ---
Please refer to the Bedside Swallow Evaluation in the EMR. Please note, silent aspiration cannot be ruled out at bedside.
--- NOTE | 2020-08-17 11:53 | WPDNEURCNPN ---
Assessment and Plan Assessment and plan (1) Sepsis: Code(s): A41.9 - Sepsis, unspecified organism Status: Acute (2) Suspected 2019 novel coronavirus infection: Code(s): Z20.822 - Contact with and (suspected) exposure to COVID-19 Status: Acute (3) Acute encephalopathy: Code(s): G93.40 - Encephalopathy, unspecified Status: Acute (4) Acute respiratory failure with hypoxia: Code(s): J96.01 - Acute respiratory failure with hypoxia Status: Acute Additional Plan COVID related infections with encephalopathy treatment as planned Consult date: 08/17/20 Time Seen: 11:45 HPI: Ayaka Montoya is a 85 year old female admitted to the [facility] with history that she was found down at home for unclear duration of time and as per the information available from the daughter she has been bed bound for at least 3 weeks with the possibility of having had COVID-19. Covered with dry feces, she was encephalopathic severely dehydrated [place] [address] and creatinine of 1.2 and saturating in the mid 80s. Required supplemental oxygen, [place] patchy bilateral airspace disease on chest x-ray compatible with pneumonia and she was again swabbed with COVID-19 cover with the antibiotics. She has never smoker drinker and has been taking amlodipine 10 mg daily rosuvastatin 20 mg daily with history of being allergic to penicillin and sulfa. CBC revealed WBC 7.2 hemoglobin 9.7 platelet count 279, sodium 154 with potassium 3.2 BUN 39 and creatinine of 0.9, blood sugar 193, albumin 2.7 and random cortisol of 6.97, CT of the head with chronic left lacunar infarct and possibility of benign meningioma near the interhemispheric fissure measuring 2.3x1.7x1.9cm closer to the right posterior parietal location, at present she is receiving ceftriaxone 1 g Q 24 hours, is is from my seen 500 mg IV piggyback Q 24 hours along with the electrolyte supplements and REM discs where 100 mg IV piggyback Q 24 hours Review of Systems Review of Systems: All systems reviewed & are unremarkable except as noted in HPI and below [facility] Social History Social History Smoking status: Never smoker Alcohol intake: never Substance use: never Gender identity (if verbalized by the patient): Female Spiritual care concerns: No Meds Home Medications and Allergies Home Medications Medication Instructions Recorded Confirmed Type amlodipine 10 mg PO DAILY 08/15/20 08/15/20 History rosuvastatin 20 mg PO DAILY 08/15/20 08/15/20 History Allergies Allergy/AdvReac Type Severity Reaction Status Date / Time Penicillins Allergy Hives Verified 07/26/20 12:24 Sulfa (Sulfonamide Allergy Hives Verified 07/26/20 12:24 Antibiotics) Vital Signs Vital Signs - 24 hr 08/16/20 12:00 08/16/20 16:00 08/16/20 16:58 Temperature 36.3 C L 36.3 C L Pulse Rate 100 92 100 Respiratory Rate 20 20 20 Blood Pressure 141/64 H 154/71 H Pulse Oximetry 94 97 93 08/16/20 20:00 08/17/20 00:00 08/17/20 04:00 Temperature 36.1 C L 36.5 C 36.4 C L Pulse Rate 96 86 88 Respiratory Rate 16 22 H 20 Blood Pressure 146/56 H 136/91 H 135/75 Pulse Oximetry 98 97 97 08/17/20 08:00 Temperature 36.3 C L Pulse Rate 81 Respiratory Rate 22 H Blood Pressure 150/82 H Pulse Oximetry 94 Exam Const: General: awake and anxious Nutritional Appearance: thin Resp: Effort & Inspection: decreased respiratory effort Auscultation: rhonchi Cardio: Rhythm: regular rhythm GI: Auscultation: normal bowel sounds Neuro: General: moves all extremities Cranial nerves: Yes CN's II-XII intact bilaterally Speech: Abnormal speech present Gait exam (Neuro): Unable to assess gait Motor exam (neuro): Abnormal motor strength present Deep tendon reflexes (DTR's): Right triceps reflex intensity grade: 1+, Left triceps reflex intensity grade: 1+, Rt Biceps (C5, C6): 1+, Left biceps reflex intensity grade:
[2020-08-17 12:45] LABS: Glucose Point of Care 271 (65-105)
--- NOTE | 2020-08-17 13:24 | PCSTNOTE ---
MD ordered MBS prior to patient's COVID+ status. MBS unable to be completed per radiologist. Relayed this information to MD, who replaced order with BSS which was then completed.
--- NOTE | 2020-08-17 13:31 | PCNFU ---
Nutrition Follow-Up Complete: Swallowing Difficulties as related to possible dysphagia as evidenced by NPO Goal: Meet estimated nutritional needs Pt current nutrition is NPO. Last recorded weight is 59.7 kg. Bowel Motility: +BM 08/17 Labs Reviewed: Na 150, K 33, GFR 53, BUN 55, Glu 302 Meds Noted: Zithromax, Decadron, Novolog, Remdesivir, 0.45NS with 20mEq KCl at 70mL/hr Additional Notes: If aggressive nutritional therapy is desired may need to consider supplemental nutrition support to meet estimated needs. Recommend Glucerna 1.5 at 55 ml/hour over 22 hours/day providing 1452 calories, 72.6 grams of protein, and 974 ml of water. Recommend 30mL water flush every 4 hours while IV fluids infusing. Once IV stopped, recommend 100mL water flush every 4 hours to meet fluid needs. Will monitor every 3 days.
[2020-08-17] MEDS: KCL 20 MEQ/D5/0.45% SOD CHL 1,000 ML 70 ML IV CONT (13:41)
--- NOTE | 2020-08-17 14:06 | PCNSR ---
On 08/17/20, the student, Andree Garnica, provided care and completed [facility] documentation on this patient. I have reviewed the student's documentation and agree with the findings.
--- NOTE | 2020-08-17 16:39 | WPDPN ---
Progress Note: A&P Assessment and Plan (1) Acute respiratory failure with hypoxia: Code(s): J96.01 - Acute respiratory failure with hypoxia Status: Acute Assessment and Plan: Appears to be secondary to COVID pneumonia. Continue supplemental oxygen and wean off as tolerated. Continue treatment with Decadron and Remdesivir.. RT assess and treat. called and he was updated. (2) Pneumonia due to COVID-19 virus: Code(s): U07.1 - COVID-19; J12.82 - Pneumonia due to coronavirus disease 2018 Status: Acute Assessment and Plan: No fevers but WBC elevated at 12K and CRP 25. CXR showing extensive patchy bilateral airspace disease c/w COVID pneumonia. Continue Decadron and Remdesivir. Will stop IV antibiotics. Continue supportive care. Continue oxygen supplementation and wean off as tolerated. Continue bronchodilators. Continue IV fluids since not eating. Place NG tube for nutrtion. (3) Acute encephalopathy: Code(s): G93.40 - Encephalopathy, unspecified Status: Acute Assessment and Plan: CT brain showing no acute findings. B12/Folate/TSH normal. Could be related to the acute COVID pneumonia. Neurology consulted and appreciate their input. Failed swallow evaluation so will place NG tube. (4) Leukocytosis: Qualifiers: Leukocytosis type: unspecified Qualified Code(s): D72.829 - Elevated white blood cell count, unspecified Code(s): D72.829 - Elevated white blood cell count, unspecified Status: Acute Assessment and Plan: WBC slightly elevated at 12.6K but normal now. CRP at 25 secondary to COVID pneumonia. Monitor CBCD. (5) Acute renal failure: Qualifiers: Acute renal failure type: unspecified Qualified Code(s): N17.9 - Acute kidney failure, unspecified Code(s): N17.9 - Acute kidney failure, unspecified Status: Acute Assessment and Plan: Cr mildly elevated at 1.2 on admission. Appears to be secondary to volume depletion and dehydration. Cr normal now with IV fluid challenge. Na was higher with potassium low; TSH and cortisol okay. Changed to maintenance fluids. Follow renal function and electrolytes. (6) Hypernatremia: Code(s): E87.0 - Hyperosmolality and hypernatremia Status: Acute Assessment and Plan: Appears to be secondary to dehydration. As above. (7) Transaminitis: Code(s): R74.01 - Elevation of levels of liver transaminase levels Status: Acute Assessment and Plan: Secondary to COVID pneumonia. Levels better yesterday. Monitor periodically (8) Abnormal urinalysis: Code(s): R82.90 - Unspecified abnormal findings in urine Status: Acute Assessment and Plan: UA noted. UCx negative. Stop IV antibiotics. (9) Diabetes mellitus: Qualifiers: Diabetes mellitus complication status: without complication Diabetes mellitus roasterman insulin use: without custodial use Diabetes mellitus type: type 2 Qualified Code(s): E11.9 - Type 2 diabetes mellitus without complications Code(s): E11.9 - Type 2 diabetes mellitus without complications Status: Chronic Assessment and Plan: A1c 6.2 The patient's blood glucose was reviewed on 08/17 Glucose elevated consistently related to the steroids. Continue AccuCheks covering with sliding scale. Hypoglycemia protocol will be available as needed. Add low dose Lantus (10) Rash: Code(s): R21 - Rash and other nonspecific skin eruption Status: Acute Assessment and Plan: Continue miconazole ointment to rash located on buttocks (11) DVT prophylaxis: Code(s): Z29.9 - Encounter for prophylactic measures, unspecified Status: Acute Assessment and Plan: Lovenox Review of Systems Review of Systems: ROS unobtainable: Yes unobtainable due to mental status Exam Narrative: Exam Narrative: AF
[2020-08-17 17:34] LABS: Hematocrit 28.9 % (37.0-47.0); Hemoglobin 9.4 g/dL (12.0-15.0); Mean Corpuscular HGB Conc 32.5 g/dl (32-36); Mean Corpuscular Hemoglobin 29.7 pg (26-34); Mean Corpuscular Volume 91.5 fl (80-100); Mean Platelet Volume 11.3 fl (7.4-10.4); Platelet Count Result 269 k/mm3 (150-375); Red Blood Count 3.16 M/mm3 (4.2-5.4); Red Cell Distribution Width 13.6 % (11.5-14.5); White Blood Count 7.1 K/mm3 (4.5-10.0)
[2020-08-17] MEDS: PANTOPRAZOLE SODIUM IV 40 MG VIAL IV PUSH (18:26)
[2020-08-17 18:48] LABS: Glucose Point of Care 301 (65-105)
[2020-08-17 19:11] LABS: Anion Gap 5 mmol/L (8-16); Blood Urea Nitrogen 25 mg/dL (7-17); Carbon Dioxide 26 mmol/L (22-30); Chloride 116 mmol/L (98-107); Estimated CRCL calculation 45 ml/min; Estimated Glomerular Filt Rate > 60; Glucose 315 mg/dL (65-105); Potassium 3.5 mmol/L (3.4-5.0); Sodium 147 mmol/L (137-145)
[2020-08-17] MEDS: ENOXAPARIN 40 MG/0.4 ML SYRINGE SUB-Q (22:06)
[2020-08-17] MEDS: REMDESIVIR 100 MG/NS 250 ML 100 MG/250 ML BAG 250 MG IVPB (22:07)
[2020-08-17] MEDS: INSULIN GLARGINE (*BKC) 100 UNITS/ML 8 UNITS SUB-Q (22:12)
[2020-08-17 22:19] LABS: Glucose Point of Care 299 (65-105)
[2020-08-18] VITALS (7 sets, daily range): BP systolic 143–170; BP diastolic 66–82; PULSE 81–100; RESP 20–22; TEMP 36.2–36.9; O2SAT 95–100
[2020-08-18] MEDS: INSULIN ASPART (*BKC) 100 UNITS/ML SUB-Q ×6 (00:53→23:42)
[2020-08-18 01:04] LABS: Glucose Point of Care 274 (65-105)
[2020-08-18] MEDS: KCL 20 MEQ/D5/0.45% SOD CHL 1,000 ML 70 ML IV CONT ×2 (05:58→15:40)
[2020-08-18 06:04] LABS: Glucose Point of Care 218 (65-105)
[2020-08-18 07:47] LABS: Basophils Percent Auto 0.2 % (0.2-1.2); Eosinophils Percent Auto 0.3 % (0-4.4); Hematocrit 27.8 % (37.0-47.0); Hemoglobin 8.9 g/dL (12.0-15.0); Immature Granulocyte Absolute 0.08 K/mm3 (0.00-0.031); Immature Granulocyte Percent A 0.8 % (0-0.5); Lymphocytes Absolute Auto 1.11 K/mm3 (0.9-3.2); Lymphocytes Percent Auto 11.2 % (18.3-44.2); Mean Corpuscular Hemoglobin 28.3 pg (26-34); Mean Corpuscular Volume 88.5 fl (80-100); Mean Platelet Volume 11.8 fl (7.4-10.4); Monocytes Absolute Auto 0.3 K/mm3 (0.1-0.6); Monocytes Percent Auto 3.4 % (2.6-8.5); Neutrophils Absolute Auto 8.4 K/mm3 (1.3-6.7); Neutrophils Percent Auto 84.1 % (45.5-73.1); Platelet Count Result 227 k/mm3 (150-375); Red Blood Count 3.14 M/mm3 (4.2-5.4); Red Cell Distribution Width 13.6 % (11.5-14.5); White Blood Count 9.9 K/mm3 (4.5-10.0)
[2020-08-18 08:13] LABS: Carbon Dioxide 25 mmol/L (22-30); Chloride 114 mmol/L (98-107); Potassium 3.2 mmol/L (3.4-5.0); Sodium 144 mmol/L (137-145)
[2020-08-18 08:14] LABS: Alanine Aminotransferase 28 U/L (4-35); Albumin Level 2.7 g/dL (3.5-5.1); Alkaline Phosphatase 78 U/L (38-126); Anion Gap 5 mmol/L (8-16); Aspartate Amino Transferase 39 U/L (14-36); Bilirubin,Total 0.5 mg/dL (0.2-1.3); Blood Urea Nitrogen 24 mg/dL (7-17); Creatine Kinase 97 U/L (30-135); Estimated CRCL calculation 45 ml/min; Estimated Glomerular Filt Rate > 60; Glucose 231 mg/dL (65-105); Lactate Dehydrogenase 1135 U/L (313-618); Magnesium 1.7 mg/dL (1.6-2.3); Phosphorus 2.7 mg/dL (2.5-4.5)
[2020-08-18] MEDS: DEXAMETHASONE SOD PHOS INJ 4 MG/ML VIAL 6 MG IV PUSH (09:05)
[2020-08-18] MEDS: ENOXAPARIN 40 MG/0.4 ML SYRINGE SUB-Q ×2 (09:05→20:02)
[2020-08-18] MEDS: PANTOPRAZOLE SODIUM IV 40 MG VIAL IV PUSH (09:06)
[2020-08-18 12:02] LABS: Glucose Point of Care 235 (65-105)
--- NOTE | 2020-08-18 14:29 | PM.IMPN ---
Progress Note: A&P Assessment and Plan (1) Acute respiratory failure with hypoxia: Code(s): J96.01 - Acute respiratory failure with hypoxia Status: Acute Assessment and Plan: Appears to be secondary to COVID pneumonia. Continue supplemental oxygen and wean off as tolerated. Continue treatment with Decadron and Remdesivir.. RT assess and treat. (2) Pneumonia due to COVID-19 virus: Code(s): U07.1 - COVID-19; J12.82 - Pneumonia due to coronavirus disease 2018 Status: Acute Assessment and Plan: No fevers but WBC was elevated at 12K and CRP at 25. CXR today showing worsening diffuse lung disease. Continue Decadron and Remdesivir. Continue supportive care. Continue oxygen supplementation and wean off as tolerated. Continue bronchodilators. Stop IV fluids once TF at goal. (3) Acute encephalopathy: Code(s): G93.40 - Encephalopathy, unspecified Status: Acute Assessment and Plan: CT brain showing no acute findings. B12/Folate/TSH normal. Could be related to the acute COVID pneumonia. Neurology consulted and appreciate their input. Failed swallow evaluation so NG tube placed. Needs MRI when stable. (4) Leukocytosis: Qualifiers: Leukocytosis type: unspecified Qualified Code(s): D72.829 - Elevated white blood cell count, unspecified Code(s): D72.829 - Elevated white blood cell count, unspecified Status: Acute Assessment and Plan: WBC slightly elevated at 12.6K but normal now. CRP at 25 secondary to COVID pneumonia. CRP 5 now. Contineu to monitor periodically. (5) Acute renal failure: Qualifiers: Acute renal failure type: unspecified Qualified Code(s): N17.9 - Acute kidney failure, unspecified Code(s): N17.9 - Acute kidney failure, unspecified Status: Acute Assessment and Plan: Cr mildly elevated at 1.2 on admission. Appears to be secondary to volume depletion and dehydration. Cr normal now with IV fluid challenge. Na was higher with potassium low; TSH and cortisol okay. Changed to maintenance fluids. Renal function normal. Sodium normal now. Follow renal function and electrolytes. (6) Hypernatremia: Code(s): E87.0 - Hyperosmolality and hypernatremia Status: Acute Assessment and Plan: Appears to be secondary to dehydration. Better now. As above. (7) Transaminitis: Code(s): R74.01 - Elevation of levels of liver transaminase levels Status: Acute Assessment and Plan: Secondary to COVID pneumonia. Levels better. Monitor periodically (8) Diabetes mellitus: Qualifiers: Diabetes mellitus complication status: without complication Diabetes mellitus termite technician insulin use: without termite technician use Diabetes mellitus type: type 2 Qualified Code(s): E11.9 - Type 2 diabetes mellitus without complications Code(s): E11.9 - Type 2 diabetes mellitus without complications Status: Chronic Assessment and Plan: A1c 6.2 The patient's blood glucose was reviewed on 08/18 Glucose elevated consistently related to the steroids. Continue AccuCheks covering with sliding scale. Hypoglycemia protocol will be available as needed. Advance Lantus (9) Rash: Code(s): R21 - Rash and other nonspecific skin eruption Status: Acute Assessment and Plan: Continue miconazole ointment to rash located on buttocks (10) DVT prophylaxis: Code(s): Z29.9 - Encounter for prophylactic measures, unspecified Status: Acute Assessment and Plan: Lovenox Subjective Date/time seen: 08/18/20 14:29 Interval history: Date of service 08/18 85yo female with DM here for altered mental status, PNA and TONIA. Patient alert but nonverbal and thus unable to provide hx. Review of Systems Review of Systems: ROS unobtainable: Yes unobtainable due to mental status Exam Narrative: Exam Narrative: AF
[2020-08-18 18:34] LABS: Glucose Point of Care 425 (65-105)
--- NOTE | 2020-08-18 19:43 | PC.NURSE ---
0810 INSERTED F#16 SALEM SUMP FEEDING TUBE AFTER EXPLAINING TO PT. INSERTED IN THE RT NARE WITHOUT DIFFIICULTY AFVANCE TO 60 CHECKED FOR PLACEMENT WITH SYRINGE AND AIRBOLUS, AND CUP OF WATER INSESRTED FOR BUBBLES NONE NOTESD TAPED TO NOSE TOLERATED WELL CALLED XY FOR VERIFICATION OF TUBE,
[2020-08-18] MEDS: INSULIN GLARGINE (*BKC) 100 UNITS/ML 12 UNITS SUB-Q (20:02)
[2020-08-18] MEDS: POTASSIUM CHLORIDE 20 MEQ PACKET (FOR LIQUID) FEED TUBE (20:02)
[2020-08-18] MEDS: REMDESIVIR 100 MG/NS 250 ML 100 MG/250 ML BAG 250 MG IVPB (21:37)
[2020-08-18 23:48] LABS: Glucose Point of Care 327 (65-105)
[2020-08-19] VITALS: BP 148/64; PULSE 95; RESP 20; TEMP 36.8; O2SAT 93
[2020-08-19 04:00] VITALS: BP 126/51; PULSE 91; RESP 18; TEMP 36.6; O2SAT 96
[2020-08-19] MEDS: INSULIN ASPART (*BKC) 100 UNITS/ML SUB-Q ×3 (05:55→17:35)
[2020-08-19 05:59] LABS: Glucose Point of Care 277 (65-105)
[2020-08-19 07:23] LABS: Basophils Percent Auto 0.3 % (0.2-1.2); Eosinophils Absolute Auto 0.1 K/mm3 (0-0.3); Eosinophils Percent Auto 0.4 % (0-4.4); Hematocrit 31.1 % (37.0-47.0); Hemoglobin 10.1 g/dL (12.0-15.0); Immature Granulocyte Absolute 0.28 K/mm3 (0.00-0.031); Immature Granulocyte Percent A 2.4 % (0-0.5); Lymphocytes Absolute Auto 1.22 K/mm3 (0.9-3.2); Lymphocytes Percent Auto 10.7 % (18.3-44.2); Mean Corpuscular HGB Conc 32.5 g/dl (32-36); Mean Corpuscular Hemoglobin 28.9 pg (26-34); Mean Corpuscular Volume 89.1 fl (80-100); Mean Platelet Volume 11.6 fl (7.4-10.4); Monocytes Absolute Auto 0.5 K/mm3 (0.1-0.6); Monocytes Percent Auto 3.9 % (2.6-8.5); Neutrophils Absolute Auto 9.4 K/mm3 (1.3-6.7); Neutrophils Percent Auto 82.3 % (45.5-73.1); Platelet Count Result 272 k/mm3 (150-375); Red Blood Count 3.49 M/mm3 (4.2-5.4); Red Cell Distribution Width 13.3 % (11.5-14.5); White Blood Count 11.4 K/mm3 (4.5-10.0)
[2020-08-19 07:25] LABS: Alanine Aminotransferase 29 U/L (4-35); Albumin Level 2.6 g/dL (3.5-5.1); Alkaline Phosphatase 92 U/L (38-126); Anion Gap 4 mmol/L (8-16); Aspartate Amino Transferase 36 U/L (14-36); Bilirubin,Total 0.5 mg/dL (0.2-1.3); Blood Urea Nitrogen 25 mg/dL (7-17); Carbon Dioxide 29 mmol/L (22-30); Chloride 110 mmol/L (98-107); Estimated CRCL calculation 40 ml/min; Estimated Glomerular Filt Rate > 60; Glucose 304 mg/dL (65-105); Magnesium 1.7 mg/dL (1.6-2.3); Phosphorus 2.7 mg/dL (2.5-4.5); Potassium 3.4 mmol/L (3.4-5.0); Sodium 143 mmol/L (137-145)
[2020-08-19 08:00] VITALS: BP 134/49; PULSE 63; PULSE 91; RESP 18; RESP 20; TEMP 36.8; O2SAT 90; O2SAT 96
[2020-08-19] MEDS: DEXAMETHASONE SOD PHOS INJ 4 MG/ML VIAL 6 MG IV PUSH (08:16)
[2020-08-19] MEDS: ENOXAPARIN 40 MG/0.4 ML SYRINGE SUB-Q ×2 (08:16→20:00)
[2020-08-19] MEDS: PANTOPRAZOLE SODIUM IV 40 MG VIAL IV PUSH (08:18)
--- NOTE | 2020-08-19 11:07 | PM.IMPN ---
Progress Note: A&P Assessment and Plan (1) Acute respiratory failure with hypoxia: Code(s): J96.01 - Acute respiratory failure with hypoxia Status: Acute Assessment and Plan: Appears to be secondary to COVID pneumonia. Weaned off O2 now. Continue treatment with Decadron and Remdesivir. RT assess and treat. If remains stable off O2, will stop Decadron and Remdesivir. (2) Pneumonia due to COVID-19 virus: Code(s): U07.1 - COVID-19; J12.82 - Pneumonia due to coronavirus disease 2018 Status: Acute Assessment and Plan: No fevers but WBC was elevated at 12K and CRP at 25. CXR 2/6 showing worsening diffuse lung disease. Continue Decadron and Remdesivir. Weaned to room air now. Continue supportive care. Continue bronchodilators. (3) Acute encephalopathy: Code(s): G93.40 - Encephalopathy, unspecified Status: Acute Assessment and Plan: CT brain showing no acute findings. B12/Folate/TSH normal. Could be related to the acute COVID pneumonia. Neurology consulted and appreciate their input. Failed swallow evaluation so NG tube placed. Check MRI brain (4) Leukocytosis: Qualifiers: Leukocytosis type: unspecified Qualified Code(s): D72.829 - Elevated white blood cell count, unspecified Code(s): D72.829 - Elevated white blood cell count, unspecified Status: Acute Assessment and Plan: WBC slightly elevated at 11.4K probably from the steroids. CRP at 25 secondary to COVID pneumonia. CRP 5 now. Continue to monitor periodically. (5) Acute renal failure: Qualifiers: Acute renal failure type: unspecified Qualified Code(s): N17.9 - Acute kidney failure, unspecified Code(s): N17.9 - Acute kidney failure, unspecified Status: Acute Assessment and Plan: Cr mildly elevated at 1.2 on admission. Appears to be secondary to volume depletion and dehydration. Cr normal now with IV fluid challenge. Na was higher with potassium low; TSH and cortisol okay. Changed to maintenance fluids with improvement. Now off all IV fluids and on TF. Renal function normal. Sodium normal now. Follow renal function and electrolytes. (6) Hypernatremia: Code(s): E87.0 - Hyperosmolality and hypernatremia Status: Acute Assessment and Plan: Appears to be secondary to dehydration. Improved (7) Transaminitis: Code(s): R74.01 - Elevation of levels of liver transaminase levels Status: Acute Assessment and Plan: Secondary to COVID pneumonia. Levels better. 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 Continue AccuCheks covering with sliding scale. Hypoglycemia protocol will be available as needed. Advance Lantus again (9) Rash: Code(s): R21 - Rash and other nonspecific skin eruption Status: Acute Assessment and Plan: Continue miconazole ointment to rash located on buttocks (10) DVT prophylaxis: Code(s): Z29.9 - Encounter for prophylactic measures, unspecified Status: Acute Assessment and Plan: Lovenox Subjective Date/time seen: 08/19/20 11:07 Interval history: Date of service 08/19 85yo female with DM here for altered mental status, PNA and TONIA. Patient alert but nonverbal and thus unable to provide hx. Toelrating TF Review of Systems Review of Systems: ROS unobtainable: Yes unobtainable due to mental status Exam Narrative: Exam Narr
[2020-08-19 12:00] VITALS: BP 150/64; PULSE 100; RESP 18; TEMP 36.7; O2SAT 93
[2020-08-19 12:08] LABS: Glucose Point of Care 361 (65-105)
[2020-08-19] MEDS: POTASSIUM CHLORIDE 20 MEQ PACKET (FOR LIQUID) FEED TUBE (15:30)
[2020-08-19 16:00] VITALS: BP 162/53; PULSE 72; RESP 20; TEMP 36.6; O2SAT 91
[2020-08-19 16:21] LABS: Pneumococcal Antigen Urine Not Detected (Not Detected)
[2020-08-19 17:45] LABS: Glucose Point of Care 394 (65-105)
[2020-08-19 20:00] VITALS: BP 145/70; PULSE 51; RESP 18; TEMP 36.4; O2SAT 100
[2020-08-19] MEDS: INSULIN GLARGINE (*BKC) 100 UNITS/ML 18 UNITS SUB-Q (20:01)
[2020-08-19] MEDS: REMDESIVIR 100 MG/NS 250 ML 100 MG/250 ML BAG 250 MG IVPB (21:26)
[2020-08-20] VITALS: BP 149/84; PULSE 96; RESP 18; TEMP 37.1; O2SAT 96
[2020-08-20] MEDS: INSULIN ASPART (*BKC) 100 UNITS/ML SUB-Q ×2 (00:43→19:57)
[2020-08-20 00:50] LABS: Glucose Point of Care 354 (65-105)
[2020-08-20 04:00] VITALS: BP 154/66; PULSE 52; RESP 18; TEMP 37.1; O2SAT 97
[2020-08-20 05:32] LABS: Glucose Point of Care 200 (65-105)
[2020-08-20 06:19] LABS: Basophils Absolute Auto 0.1 K/mm3 (0.0-0.1); Basophils Percent Auto 0.4 % (0.2-1.2); Eosinophils Absolute Auto 0.1 K/mm3 (0-0.3); Eosinophils Percent Auto 0.5 % (0-4.4); Hemoglobin 11.1 g/dL (12.0-15.0); Immature Granulocyte Absolute 0.58 K/mm3 (0.00-0.031); Immature Granulocyte Percent A 4.4 % (0-0.5); Lymphocytes Absolute Auto 1.42 K/mm3 (0.9-3.2); Lymphocytes Percent Auto 10.8 % (18.3-44.2); Mean Corpuscular HGB Conc 32.6 g/dl (32-36); Mean Corpuscular Hemoglobin 28.7 pg (26-34); Mean Corpuscular Volume 87.9 fl (80-100); Mean Platelet Volume 11.8 fl (7.4-10.4); Monocytes Absolute Auto 0.6 K/mm3 (0.1-0.6); Monocytes Percent Auto 4.4 % (2.6-8.5); Neutrophils Absolute Auto 10.4 K/mm3 (1.3-6.7); Neutrophils Percent Auto 79.5 % (45.5-73.1); Platelet Count Result 282 k/mm3 (150-375); Red Blood Count 3.87 M/mm3 (4.2-5.4); Red Cell Distribution Width 13.5 % (11.5-14.5); White Blood Count 13.1 K/mm3 (4.5-10.0)
[2020-08-20 07:17] LABS: Alanine Aminotransferase 31 U/L (4-35); Albumin Level 2.8 g/dL (3.5-5.1); Alkaline Phosphatase 93 U/L (38-126); Anion Gap 6 mmol/L (8-16); Aspartate Amino Transferase 39 U/L (14-36); Bilirubin,Total 0.5 mg/dL (0.2-1.3); Blood Urea Nitrogen 29 mg/dL (7-17); CRP 3.1 mg/dL (<1.0); Calcium 8.4 mg/dL (8.4-10.2); Carbon Dioxide 30 mmol/L (22-30); Chloride 111 mmol/L (98-107); Estimated CRCL calculation 45 ml/min; Estimated Glomerular Filt Rate > 60; Glucose 180 mg/dL (65-105); Lactate Dehydrogenase 1046 U/L (313-618); Potassium 3.6 mmol/L (3.4-5.0); Sodium 147 mmol/L (137-145)
[2020-08-20 08:00] VITALS: BP 134/92; PULSE 70; RESP 16; TEMP 36.4; O2SAT 93
[2020-08-20] MEDS: ENOXAPARIN 40 MG/0.4 ML SYRINGE SUB-Q ×2 (08:57→20:07)
[2020-08-20] MEDS: DEXAMETHASONE SOD PHOS INJ 4 MG/ML VIAL 6 MG IV PUSH (08:57)
[2020-08-20] MEDS: PANTOPRAZOLE SODIUM IV 40 MG VIAL IV PUSH (08:58)
--- NOTE | 2020-08-20 10:24 | PM.IMPN ---
Progress Note: A&P Assessment and Plan (1) Acute respiratory failure with hypoxia: Code(s): J96.01 - Acute respiratory failure with hypoxia Status: Acute Assessment and Plan: Appears to be secondary to COVID pneumonia. Weaned off O2 now. Finish treatment with Remdesivir but stop Decadron. RT assess and treat. (2) Pneumonia due to COVID-19 virus: Code(s): U07.1 - COVID-19; J12.82 - Pneumonia due to coronavirus disease 2018 Status: Acute Assessment and Plan: No fevers but WBC was elevated at 12K and CRP at 25. CXR /6 showing worsening diffuse lung disease. Weaned to room air now. Will continue Remdesivir to complete the course but stop Decadron since on RA past 2 days. Continue supportive care. Continue bronchodilators. (3) Acute encephalopathy: Code(s): G93.40 - Encephalopathy, unspecified Status: Acute Assessment and Plan: CT brain showing no acute findings. B12/Folate/TSH normal. Could be related to the acute COVID pneumonia. Neurology consulted and appreciate their input. Failed swallow evaluation so NG tube placed. MRI brain pending (4) Leukocytosis: Qualifiers: Leukocytosis type: unspecified Qualified Code(s): D72.829 - Elevated white blood cell count, unspecified Code(s): D72.829 - Elevated white blood cell count, unspecified Status: Acute Assessment and Plan: WBC slightly elevated at 13K probably from the steroids. CRP at 25 secondary to COVID pneumonia. CRP 3 now. Continue to monitor periodically. (5) Acute renal failure: Qualifiers: Acute renal failure type: unspecified Qualified Code(s): N17.9 - Acute kidney failure, unspecified Code(s): N17.9 - Acute kidney failure, unspecified Status: Acute Assessment and Plan: Cr mildly elevated at 1.2 on admission. Appears to be secondary to volume depletion and dehydration. Cr normal now with IV fluid challenge. Na was higher with potassium low; TSH and cortisol okay. Changed to maintenance fluids with improvement. Now off all IV fluids and on TF. Renal function normal. Sodium normal now. Follow renal function and electrolytes. (6) Hypernatremia: Code(s): E87.0 - Hyperosmolality and hypernatremia Status: Acute Assessment and Plan: Appears to be secondary to dehydration. Improved (7) Transaminitis: Code(s): R74.01 - Elevation of levels of liver transaminase levels Status: Acute Assessment and Plan: Secondary to COVID pneumonia. Levels almost normal. Monitor periodically (8) Diabetes mellitus: Qualifiers: Diabetes mellitus complication status: without complication Diabetes mellitus fdc insulin use: without fdc use Diabetes mellitus type: type 2 Qualified Code(s): E11.9 - Type 2 diabetes mellitus without complications Code(s): E11.9 - Type 2 diabetes mellitus without complications Status: Chronic Assessment and Plan: A1c 6.2 The patient's blood glucose was reviewed on 08/20 Glucose elevated consistently related to the steroids. Continue AccuCheks covering with sliding scale. Hypoglycemia protocol will be available as needed. Steroids to stop so will cut Lantus down. (9) Rash: Code(s): R21 - Rash and other nonspecific skin eruption Status: Acute Assessment and Plan: Continue miconazole ointment to rash located on buttocks (10) DVT prophylaxis: Code(s): Z29.9 - Encounter for prophylactic measures, unspecified Status: Acute Assessment and Plan: Lovenox Subjective Date/time seen: 08/20/20 10:24 Interval history: Date of service 08/20 85yo female with DM here for altered mental status, PNA and TONIA. Patient awake but nonverbal and thus unable to provide hx. Tolerating TF. Spoke with : he denies that patient uses alcohol or drugs. Patient was ambulating to the [facility]
[2020-08-20 10:47] VITALS: BMI 10.0
--- NOTE | 2020-08-20 11:24 | PCNFU ---
Nutrition Follow-Up Complete: Swallowing Difficulties as related to possible dysphagia as evidenced by NPO Goal: Meet estimated nutritional needs Progressing towards goal. We will continue current goal. Pt current nutrition is Jevity 1.2 at 60 ml/hr. Nutrition recommendation:Glucerna 1.2 @ 55 ml/hr Last recorded weight is 59.7 kg, no new weight reported. Bowel Motility:+BM 08/19 Labs Reviewed:Na 147,BUN 29,Glu 180, Hct 34.0 Meds Noted:Remdesivir,Protonix,Lovenox Additional Notes: Nutrition follow up today. Spoke with nursing due to COVID precautions, Patient having MRI today. NGT in place with tube feeding of Jevity 1.2 at 60 ml/hr. Patient is at goal rate for tube feeding, providing patient with 1584 kcals and 73 gms protein, exceeding patients caloric needs. Recommend tube feeding change to Glucerna 1.2 at 55 ml/hr which will provide patient with 1452 kcals/73 gms protein. Monitoring: tube feeding tolerance, weight, Labs, every Thursday/Thursday days.
[2020-08-20 12:00] VITALS: BP 126/66; PULSE 79; RESP 20; TEMP 36.8; O2SAT 94
[2020-08-20 12:23] LABS: Legionella pneumophila Ag Ur Not Detected (Not Detected)
[2020-08-20] MEDS: INSULIN ASPART (*BKC) 100 UNITS/ML 8 UNITS SUB-Q (13:00)
[2020-08-20 16:00] VITALS: BP 152/86; PULSE 52; RESP 16; TEMP 36.9; O2SAT 95
[2020-08-20 17:47] LABS: Glucose Point of Care 401 (65-105)
[2020-08-20 17:47] LABS: Glucose Point of Care 424 (65-105)
[2020-08-20 20:00] VITALS: BP 142/77; PULSE 82; RESP 20; TEMP 36.4; O2SAT 92
[2020-08-20] MEDS: INSULIN GLARGINE (*BKC) 100 UNITS/ML 8 UNITS SUB-Q (20:07)
[2020-08-20] MEDS: REMDESIVIR 100 MG/NS 250 ML 100 MG/250 ML BAG 250 MG IVPB (23:03)
[2020-08-20] MEDS: ASPIRIN 325 MG TABLET FEED TUBE (23:04)
[2020-08-21] VITALS (9 sets, daily range): BP systolic 137–185; BP diastolic 61–93; PULSE 51–109; RESP 18–20; TEMP 36.6–36.7; O2SAT 92–98
--- NOTE | 2020-08-21 | ECHO_ITS ---
Patient Info Name: Ayaka Monotya Age: 85 years : 1935 Gender: Female Ht: 64 in Wt: 132 lbs BSA: 1.65 m2 HR: 100 bpm BP: 137 / 93 mmHg Heart Rhythm: Sinus Arrhythmia Technical Quality: Good Exam Date: 08/21/2020 10:05 AM Exam Location: [facility] Pulmonary Patient Status: Inpatient Admit Date: 08/16/2020 Staff Ordering Physician: Juan Antonio Mann MD Telephone Sex Worker: Keenan Greene RDCS Attending Provider: Juan Antonio Mann MD Exam Type: CA echo doppler color flow Study Info Indications 436.0 - CVA Complete two-dimensional, color flow and Doppler transthoracic echocardiogram is performed. History/Risk Factors CVA, COVID 19+, Sepsis. Summary 1. Complete two-dimensional, color flow and Doppler transthoracic echocardiogram is performed. 2. Normal LV size and wall thickness, normal LV systolic function, ejection fraction about 55-60%. Grade 1 diastolic dysfunction. Mild left atrial enlargement. Mild mitral annular calcification, mitral valve leaflets mildly thickened, trivial MR. Aortic valve sclerosis, mild aortic stenosis, calculated NAI 1.9 cm2. Trace TR, moderate pulmonary hypertension, RVSP 48 mmHg. Left Ventricle Left ventricular chamber dimension is normal. Left ventricular systolic function is normal, estimated at 55-60%. There is no increased left ventricular wall thickness. The left ventricular diastolic function is grade I diastolic dysfunction. Right Ventricle Right ventricular chamber dimension is normal. Right ventricular systolic function is normal. Left Atria Left atrial chamber dimension is mildly enlarged. Right Atria Right atrial chamber dimension is normal. Aortic Valve There is mild aortic valve sclerosis. There is mild aortic valve stenosis with a peak velocity of 191 cm/s, mean gradient of 5 mmHg, and aortic valve area of 1.9 cm2. Pulmonic Valve The pulmonic valve is normal. There is trace pulmonic regurgitation. Mitral Valve The mitral valve annulus is mildly calcified. Tricuspid Valve The tricuspid valve leaflets are normal. There is trace tricuspid valve regurgitation. Moderate pulmonary hypertension, estimated pulmonary arterial systolic pressure is 48 mmHg. Pericardium/Pleural The pericardium appears normal. Inferior Vena Cava Normal inferior vena cava with >50% collapse upon inspiration consistent with normal right atrial pressure, 10 mmHg. Aorta The aortic root size at the sinus of Valsalva is normal. Left Ventricular Outflow Tract Name Value Normal LVOT 2D LVOT Diameter 1.9 cm LVOT Doppler LVOT Peak Gradient 4 mmHg LVOT Mean Gradient 2 mmHg LVOT VTI 25 cm LVOT VTI/AV VTI Ratio 0.7 LVOT Stroke Volume 73 ml LVOT CO 5.1 l/min LVOT CI 3.1 l/min/m2 Mitral Valve Name Value Normal
[2020-08-21 01:50] LABS: Glucose Point of Care 381 (65-105)
[2020-08-21] MEDS: INSULIN ASPART (*BKC) 100 UNITS/ML SUB-Q ×3 (01:55→18:44)
[2020-08-21 06:29] LABS: Glucose Point of Care 163 (65-105)
[2020-08-21 07:19] LABS: Cholesterol 77 mg/dL (0-200); HDL Direct 17 mg/dL; Triglycerides 289 mg/dL (<150)
[2020-08-21 07:34] LABS: Hematocrit 33.5 % (37.0-47.0); Hemoglobin 10.7 g/dL (12.0-15.0); Mean Corpuscular HGB Conc 31.9 g/dl (32-36); Mean Corpuscular Hemoglobin 28.5 pg (26-34); Mean Corpuscular Volume 89.3 fl (80-100); Mean Platelet Volume 12.4 fl (7.4-10.4); Platelet Count Result 279 k/mm3 (150-375); Red Blood Count 3.75 M/mm3 (4.2-5.4); Red Cell Distribution Width 13.6 % (11.5-14.5)
[2020-08-21 07:54] LABS: LDL Cholesterol Direct < 30 mg/dL
[2020-08-21] MEDS: ENOXAPARIN 40 MG/0.4 ML SYRINGE SUB-Q ×2 (09:16→20:36)
[2020-08-21] MEDS: PANTOPRAZOLE SODIUM IV 40 MG VIAL IV PUSH (09:16)
[2020-08-21] MEDS: ASPIRIN 325 MG TABLET FEED TUBE (09:16)
[2020-08-21] MEDS: ROSUVASTATIN 10 MG TABLET 20 MG FEED TUBE (09:16)
[2020-08-21 11:31] LABS: Anion Gap 5 mmol/L (8-16); Blood Urea Nitrogen 35 mg/dL (7-17); Calcium 8.6 mg/dL (8.4-10.2); Carbon Dioxide 30 mmol/L (22-30); Chloride 110 mmol/L (98-107); Estimated CRCL calculation 45 ml/min; Estimated Glomerular Filt Rate > 60; Glucose 182 mg/dL (65-105); Potassium 4.2 mmol/L (3.4-5.0); Sodium 145 mmol/L (137-145)
--- NOTE | 2020-08-21 12:59 | PCNFU ---
Nutrition Follow-Up Complete: Swallowing Difficulties as related to possible dysphagia as evidenced by NPO Goal: Meet estimated nutritional needs Patient is progressing towards goal. We will continue current goal. Pt current nutrition is Glucerna 1.2 at 60 ml/hr Last recorded weight is 59.7 kg. No new weights to report. Bowel Motility:+BM reported 08/20. Labs Reviewed:Hct 33,5, Hgb 10.7 Meds Noted: Protonix, Lantus, NovoLog, Crestor Additional Notes:Nutrition follow up. Patient remains on NGT feedings of Glucerna 1.2 at 60 ml/hr, which is providing patient with 1584 kcals/79 gms protein. No residuals reported. Meeting 100% of patients caloric needs. Echo and Carotid Doppler study today. Monitoring: tube feeding tolerance, labs, meds, weight every Thursday and Thursday.
--- NOTE | 2020-08-21 13:02 | PM.IMPN ---
Progress Note: A&P Assessment and Plan (1) Acute respiratory failure with hypoxia: Code(s): J96.01 - Acute respiratory failure with hypoxia Status: Acute Assessment and Plan: secondary to COVID pneumonia. Weaned off O2 now. Finished treatment with Remdesivir . (2) Pneumonia due to COVID-19 virus: Code(s): U07.1 - COVID-19; J12.82 - Pneumonia due to coronavirus disease 2018 Status: Acute Assessment and Plan: aossciated with sepsis Remdesivir completed (3) Acute encephalopathy: Code(s): G93.40 - Encephalopathy, unspecified Status: Acute Assessment and Plan: Multifactorial most likely related to COVID-19 pneumonia and multiple stroke COVID-19 associated with cerebrovascular disease neurology following carotid Doppler less than 50% stenosis (4) Acute renal failure: Qualifiers: Acute renal failure type: unspecified Qualified Code(s): N17.9 - Acute kidney failure, unspecified Code(s): N17.9 - Acute kidney failure, unspecified Status: Acute Assessment and Plan: Secondary to dehydration treated with IV fluid currently off IV fluid continue oral hydration (5) Hypernatremia: Code(s): E87.0 - Hyperosmolality and hypernatremia Status: Acute Assessment and Plan: Appears to be secondary to dehydration. Improved (6) Transaminitis: Code(s): R74.01 - Elevation of levels of liver transaminase levels Status: Acute Assessment and Plan: Secondary to COVID pneumonia. Monitor CMP (7) Diabetes mellitus: Qualifiers: Diabetes mellitus type: type 2 Diabetes mellitus longterm insulin use: without manager terminal use Diabetes mellitus complication status: without complication Qualified Code(s): E11.9 - Type 2 diabetes mellitus without complications Code(s): E11.9 - Type 2 diabetes mellitus without complications Status: Chronic Assessment and Plan: Insulin sliding scale and hypoglycemic protocol. (8) Rash: Code(s): R21 - Rash and other nonspecific skin eruption Status: Acute Assessment and Plan: Continue miconazole ointment to rash located on buttocks frequent turning offloading (9) DVT prophylaxis: Code(s): Z29.9 - Encounter for prophylactic measures, unspecified Status: Acute Assessment and Plan: Lovenox Subjective Date/time seen: 08/21/20 13:02 Interval history: Patient seen and examined Patient is nonverbal but able to follow commands COVID-19 positive Has nasogastric tube MRI shows multiple stroke I am seeing the patient for multiple stroke Exam Narrative: Exam Narrative: Alert follow commands Chest no wheeze crackles Abdomen nontender nondistended CVS S1 + S2 Objective Data Vital Signs Vital Signs: Vital Signs - 24 hr 08/20/20 16:00 08/20/20 20:00 08/21/20 00:00 Temperature 98.4 F 97.6 F 98.1 F Pulse Rate 52 L 82 88 Respiratory Rate 16 20 20 Blood Pressure 152/86 H 142/77 H 137/93 H Pulse Oximetry 95 92 94 08/21/20 04:00 08/21/20 08:00 08/21/20 09:13 Temperature 97.9 F 98.1 F Pulse Rate 51 L 79 Respiratory Rate 20 18 Blood Pressure 140/73 143/70 H Pulse Oximetry 94 92 95 08/21/20 12:00 Temperature 97.8 F Pulse Rate 109 H Respiratory Rate 20 Blood Pressure Pulse Oximetry 98 Intake/Output Intake/Output: Intake & Output 08/18/20 08/19/20 08/20/20 08/21/20 23:59 23:59 23:59 23:59 Intake Total 2250 983 648 250 Output Total 100 100 Balance 2150 883 648 250 Meds/Results Medications: Active Medications Generic Name Dose Route Start Last Admin Trade Name Freq PRN Reason Stop Dose Admin Aspirin 325 mg 08/20/20 21:25 08/21/20 09:16 Aspirin 325 Mg Tablet FEED TUBE 325 mg DAILY@0800 NAZARIO Administration Dextrose 12.5 gm 08/16/20 17:17 Dextrose 50% 25 Gm/50 Ml Syringe IV PUSH PRN PRN Hypoglycemia Protocol Enoxapari
[2020-08-21 14:18] LABS: Glucose Point of Care 294 (65-105)
[2020-08-21] MEDS: hydrALAZINE HCL 25 MG TABLET PO (17:17)
[2020-08-21 18:35] LABS: Glucose Point of Care 276 (65-105)
[2020-08-21] MEDS: INSULIN GLARGINE (*BKC) 100 UNITS/ML 8 UNITS SUB-Q (20:35)
[2020-08-22] VITALS: BP 136/67; PULSE 94; RESP 20; TEMP 36.5; O2SAT 100
[2020-08-22 00:27] LABS: Glucose Point of Care 271 (65-105)
[2020-08-22] MEDS: INSULIN ASPART (*BKC) 100 UNITS/ML SUB-Q ×4 (00:30→18:20)
[2020-08-22 04:00] VITALS: BP 175/79; PULSE 102; RESP 20; TEMP 36.6; O2SAT 92
[2020-08-22] MEDS: hydrALAZINE HCL 25 MG TABLET PO (06:06)
[2020-08-22 06:18] LABS: Glucose Point of Care 276 (65-105)
[2020-08-22 08:00] VITALS: BP 134/93; PULSE 73; RESP 22; TEMP 37.1; O2SAT 92
[2020-08-22] MEDS: PANTOPRAZOLE SODIUM IV 40 MG VIAL IV PUSH (09:19)
[2020-08-22] MEDS: ROSUVASTATIN 10 MG TABLET 20 MG FEED TUBE (09:19)
[2020-08-22] MEDS: ASPIRIN 325 MG TABLET FEED TUBE (09:19)
[2020-08-22] MEDS: ENOXAPARIN 40 MG/0.4 ML SYRINGE SUB-Q ×2 (09:19→21:27)
[2020-08-22 11:51] LABS: Glucose Point of Care 276 (65-105)
--- NOTE | 2020-08-22 11:51 | PM.IMPN ---
Progress Note: A&P Assessment and Plan (1) Acute respiratory failure with hypoxia: Code(s): J96.01 - Acute respiratory failure with hypoxia Status: Acute Assessment and Plan: secondary to COVID pneumonia. Weaned off O2 now. Finished treatment with Remdesivir . Monitor CBC (2) Pneumonia due to COVID-19 virus: Code(s): U07.1 - COVID-19; J12.82 - Pneumonia due to coronavirus disease 2018 Status: Acute Assessment and Plan: aossciated with sepsis Remdesivir completed urine culture blood culture negative (3) Acute encephalopathy: Code(s): G93.40 - Encephalopathy, unspecified Status: Acute Assessment and Plan: Multifactorial most likely related to COVID-19 pneumonia and multiple stroke COVID-19 associated with cerebrovascular disease neurology following carotid Doppler less than 50% stenosis (4) Acute renal failure: Qualifiers: Acute renal failure type: unspecified Qualified Code(s): N17.9 - Acute kidney failure, unspecified Code(s): N17.9 - Acute kidney failure, unspecified Status: Acute Assessment and Plan: Secondary to dehydration treated with IV fluid currently off IV fluid continue oral hydration (5) Hypernatremia: Code(s): E87.0 - Hyperosmolality and hypernatremia Status: Acute Assessment and Plan: Appears to be secondary to dehydration. Improved (6) Transaminitis: Code(s): R74.01 - Elevation of levels of liver transaminase levels Status: Acute Assessment and Plan: Secondary to COVID pneumonia. 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 Lantus uncontrolled (8) Rash: Code(s): R21 - Rash and other nonspecific skin eruption Status: Acute Assessment and Plan: Continue miconazole ointment to rash located on buttocks frequent turning offloading (9) DVT prophylaxis: Code(s): Z29.9 - Encounter for prophylactic measures, unspecified Status: Acute Assessment and Plan: Lovenox Subjective Date/time seen: 08/22/20 11:51 Interval history: Patient seen and examined Patient is nonverbal but able to follow commands COVID-19 positive Has nasogastric tube MRI shows multiple stroke Has hyperglycemia I am seeing the patient for multiple stroke Exam Narrative: Exam Narrative: Alert follow commands Chest no wheeze crackles Abdomen nontender nondistended CVS S1 + S2 Objective Data Vital Signs Vital Signs: Vital Signs - 24 hr 08/21/20 12:00 08/21/20 14:59 08/21/20 16:00 Temperature 97.8 F 98.1 F Pulse Rate 109 H 64 Respiratory Rate 20 20 Blood Pressure 150/72 H 185/83 H Pulse Oximetry 98 97 08/21/20 18:33 08/21/20 20:00 08/22/20 00:00 Temperature 98 F 97.7 F Pulse Rate 97 94 Respiratory Rate 20 20 Blood Pressure 140/77 140/61 136/67 Pulse Oximetry 94 100 08/22/20 04:00 08/22/20 08:00 Temperature 97.9 F 98.7 F Pulse Rate 102 H 73 Respiratory Rate 20 22 H Blood Pressure 175/79 H 134/93 H Pulse Oximetry 92 92 Intake/Output Intake/Output: Intake & Output 08/19/20 08/20/20 08/21/20 08/22/20 23:59 23:59 23:59 23:59 Intake Total 553 169 2995 817 Output Total 100 Balance 658 817 9292 817 Meds/Results Medications: Active Medications Generic Name Dose Route Start Last Admin Trade Name Freq PRN Reason Stop Dose Admin Aspirin 325 mg 08/20/20 21:25 08/22/20 09:19 Aspirin 325 Mg Tablet FEED TUBE 325 mg DAILY@0800 [facility] Administration Dextrose 12.5 gm
[2020-08-22 12:00] VITALS: BP 135/66; PULSE 92; RESP 22; TEMP 36.8; O2SAT 93
[2020-08-22 13:06] LABS: Basophils Percent Auto 0.2 % (0.2-1.2); Eosinophils Absolute Auto 0.2 K/mm3 (0-0.3); Eosinophils Percent Auto 0.9 % (0-4.4); Hematocrit 33.8 % (37.0-47.0); Hemoglobin 10.7 g/dL (12.0-15.0); Immature Granulocyte Absolute 0.39 K/mm3 (0.00-0.031); Immature Granulocyte Percent A 2.3 % (0-0.5); Lymphocytes Absolute Auto 1.39 K/mm3 (0.9-3.2); Lymphocytes Percent Auto 8.1 % (18.3-44.2); Mean Corpuscular HGB Conc 31.7 g/dl (32-36); Mean Corpuscular Hemoglobin 29.3 pg (26-34); Mean Corpuscular Volume 92.6 fl (80-100); Mean Platelet Volume 12.4 fl (7.4-10.4); Monocytes Absolute Auto 0.6 K/mm3 (0.1-0.6); Monocytes Percent Auto 3.3 % (2.6-8.5); Neutrophils Absolute Auto 14.6 K/mm3 (1.3-6.7); Neutrophils Percent Auto 85.2 % (45.5-73.1); Nucleated Red Blood Cells Perc 0.1 % (0.0-0.2); Platelet Count Result 283 k/mm3 (150-375); Red Blood Count 3.65 M/mm3 (4.2-5.4); Red Cell Distribution Width 14.1 % (11.5-14.5); White Blood Count 17.1 K/mm3 (4.5-10.0)
[2020-08-22 13:21] LABS: Alanine Aminotransferase 32 U/L (4-35); Albumin Level 2.7 g/dL (3.5-5.1); Alkaline Phosphatase 104 U/L (38-126); Anion Gap 5 mmol/L (8-16); Aspartate Amino Transferase 38 U/L (14-36); Bilirubin,Total 0.4 mg/dL (0.2-1.3); Blood Urea Nitrogen 37 mg/dL (7-17); Calcium 8.2 mg/dL (8.4-10.2); Carbon Dioxide 29 mmol/L (22-30); Chloride 109 mmol/L (98-107); Estimated CRCL calculation 40 ml/min; Estimated Glomerular Filt Rate > 60; Glucose 313 mg/dL (65-105); Potassium 4.4 mmol/L (3.4-5.0); Sodium 143 mmol/L (137-145)
--- NOTE | 2020-08-22 13:48 | PCOTNOTE ---
Patient refused treatment this session stating that she didn't feel up to doing anything this afternoon and to check back tomorrow.
[2020-08-22 16:00] VITALS: BP 137/64; PULSE 97; RESP 20; TEMP 36.9; O2SAT 95
--- NOTE | 2020-08-22 17:21 | WPDGICN ---
Assessment and Plan Assessment and plan (1) Dysphagia: Code(s): R13.10 - Dysphagia, unspecified Status: Acute Assessment and Plan: tolerating feeding by NGT, MRI findings with strokes probably related to COVID, she was quite sick on admission would like to discuss with primary team about current medical status, he knew that she was getting fed by NGT but did not know that will require g-tube. I will talk to him again tomorrow, he is going to think about it. 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 (2) Pneumonia due to COVID-19 virus: Code(s): U07.1 - COVID-19; J12.82 - Pneumonia due to coronavirus disease 2019 Status: Acute Assessment and Plan: supportive care (3) Sepsis: Code(s): A41.9 - Sepsis, unspecified organism Status: Acute Assessment and Plan: from covid (4) Transaminitis: Code(s): R74.01 - Elevation of levels of liver transaminase levels Status: Acute (5) Dehydration: Code(s): E86.0 - Dehydration Status: Acute Assessment and Plan: treated and better, on tube feeding (6) Acute encephalopathy: Code(s): G93.40 - Encephalopathy, unspecified Status: Acute (7) Acute respiratory failure with hypoxia: Code(s): J96.01 - Acute respiratory failure with hypoxia Status: Acute (8) Stroke: Code(s): I63.9 - Cerebral infarction, unspecified Status: Acute Assessment and Plan: mri brain reviewed GI Consult Note Consult date/time: 08/22/20 17:21 Reason for consult: dysphagia HPI: Ayaka Montoya is a 85 year old female who was brought to the hospital on 08/15/2020 after being found down for an undetermined amount of time at home covered in dry feces (history obtained from records and also by phone conversation with ). ER evaluation with severe dehydration, sodium of 152 mg/dl, elevated WBC of 12,600, and elevated Cr. of 1.2 and hypoxemia. CXR consistent with pneumonia and COVID-19 was positive. Also encephalopathic with MRI brain showed multiple small acute to early subacute infarcts in the right frontal, parietal and temporal lobes consistent with shower of emboli in the right middle cerebral artery vascular distribution. She has NGT tolerating tube feeding at 60ml/h. I talked to and he would like to touch base again with primary team, he has not had the chance to talk to them for last 2 days. He says that she used to be relative healthy before getting sick and never had issues with eating. Review of Systems Review of Systems: ROS unobtainable: Yes unobtainable due to mental status [facility] Past Medical History Medical History (Updated 08/22/20 @ 17:31 by Fabio Monreal MD) Dysphagia Stroke Social History Social History Smoking status: Never smoker Alcohol intake: never Substance use: never Gender identity (if verbalized by the patient): Female Spiritual care concerns: No Meds Home Medications and Allergies Home Medications Medication Instructions Recorded Confirmed Type amlodipine 10 mg PO DAILY 08/15/20 08/15/20 History rosuvastatin 20 mg PO DAILY 08/15/20 08/15/20 History Allergies Allergy/AdvReac Type Severity Reaction Status Date / Time Penicillins Allergy Hives Verified 07/26/20 12:24 Sulfa (Sulfonamide Allergy Hives Verified 07/26/20 12:24 Antibiotics) Vital Signs Vital Signs - 24 hr 08/21/20 18:33 08/21/20 20:00 08/22/20 00:00 Temperature 98 F 97.7 F Pulse Rate 97 94 Respiratory Rate 20 20 Blood Pressure 140/77 140/61 136/67 Pulse Oximetry 94 100 08/22/20 04:00 08/22/20 08:00 08/22/20 12:00 Temperature 97.9 F 98.7 F 98.3 F Pulse Rate 102 H 73 92 Respiratory Rate 20 22 H 22 H Blood Pressure 175/79 H 134/93 H 135/66 Pulse Oximetry 92 92 93 08/22/20 16:00 Temperature 98.4 F Pulse Rate 97 Respi
[2020-08-22 19:30] LABS: Glucose Point of Care 348 (65-105)
[2020-08-22 20:00] VITALS: BP 123/71; PULSE 99; RESP 18; TEMP 36.8; O2SAT 96
[2020-08-22] MEDS: INSULIN GLARGINE (*BKC) 100 UNITS/ML 17 UNITS SUB-Q (21:26)
[2020-08-23] VITALS: BP 116/61; PULSE 82; RESP 22; TEMP 37.1; O2SAT 93
[2020-08-23] MEDS: INSULIN ASPART (*BKC) 100 UNITS/ML SUB-Q ×3 (00:13→17:58)
[2020-08-23 00:14] LABS: Glucose Point of Care 294 (65-105)
[2020-08-23 04:00] VITALS: BP 102/72; PULSE 83; RESP 20; TEMP 36.9; O2SAT 97
[2020-08-23 06:27] LABS: Glucose Point of Care 196 (65-105)
[2020-08-23 08:00] VITALS: BP 134/62; PULSE 92; RESP 20; TEMP 36.7; O2SAT 94
[2020-08-23] MEDS: PANTOPRAZOLE SODIUM IV 40 MG VIAL IV PUSH (09:01)
[2020-08-23] MEDS: ENOXAPARIN 40 MG/0.4 ML SYRINGE SUB-Q ×2 (09:01→21:07)
[2020-08-23] MEDS: ASPIRIN 325 MG TABLET FEED TUBE (09:02)
[2020-08-23] MEDS: ROSUVASTATIN 10 MG TABLET 20 MG FEED TUBE (09:02)
--- NOTE | 2020-08-23 11:39 | PM.IMPN ---
Progress Note: A&P Assessment and Plan (1) Acute respiratory failure with hypoxia: Code(s): J96.01 - Acute respiratory failure with hypoxia Status: Acute Assessment and Plan: secondary to COVID pneumonia. Weaned off O2 now. Finished treatment with Remdesivir . Monitor CBC patient still have significant leukocytosis but no evidence of active infection (2) Pneumonia due to COVID-19 virus: Code(s): U07.1 - COVID-19; J12.82 - Pneumonia due to coronavirus disease 2018 Status: Acute Assessment and Plan: aossciated with sepsis Remdesivir completed urine culture blood culture negative (3) Acute encephalopathy: Code(s): G93.40 - Encephalopathy, unspecified Status: Acute Assessment and Plan: Multifactorial most likely related to COVID-19 pneumonia and multiple stroke COVID-19 associated with cerebrovascular disease neurology following carotid Doppler less than 50% stenosis (4) Acute renal failure: Qualifiers: Acute renal failure type: unspecified Qualified Code(s): N17.9 - Acute kidney failure, unspecified Code(s): N17.9 - Acute kidney failure, unspecified Status: Acute Assessment and Plan: Secondary to dehydration treated with IV fluid currently off IV fluid continue oral hydration (5) Hypernatremia: Code(s): E87.0 - Hyperosmolality and hypernatremia Status: Acute Assessment and Plan: Appears to be secondary to dehydration. Improved (6) Transaminitis: Code(s): R74.01 - Elevation of levels of liver transaminase levels Status: Acute Assessment and Plan: Secondary to COVID pneumonia. Monitor CMP (7) Diabetes mellitus: Qualifiers: Diabetes mellitus type: type 2 Diabetes mellitus nursing home insulin use: without nursing home use Diabetes mellitus complication status: without complication Qualified Code(s): E11.9 - Type 2 diabetes mellitus without complications Code(s): E11.9 - Type 2 diabetes mellitus without complications Status: Chronic Assessment and Plan: Insulin sliding scale and hypoglycemic protocol. Lantus uncontrolled (8) Rash: Code(s): R21 - Rash and other nonspecific skin eruption Status: Acute Assessment and Plan: Continue miconazole ointment to rash located on buttocks frequent turning offloading (9) DVT prophylaxis: Code(s): Z29.9 - Encounter for prophylactic measures, unspecified Status: Acute Assessment and Plan: Lovenox (10) Dysphagia: Code(s): R13.10 - Dysphagia, unspecified Status: Acute Assessment and Plan: Secondary to acute stroke currently patient has nasogastric tube GI was consulted regarding PEG tube will discuss with the family Subjective Date/time seen: 08/23/20 11:39 Interval history: Patient seen and examined Patient is nonverbal but able to follow commands COVID-19 positive Still has leukocytosis Has nasogastric tube GI recommendation appreciated regarding PEG tube placement Discussed with neurology aware of stroke continue current treatment Has hyperglycemia medication was adjusted I am seeing the patient for multiple stroke Exam Narrative: Exam Narrative: Alert follow commands Chest no wheeze crackles Abdomen nontender nondistended CVS S1 + S2 Objective Data Vital Signs Vital Signs: Vital Signs - 24 hr 08/22/20 12:00 08/22/20 16:00 08/22/20 20:00 Temperature 98.3 F 98.4 F 98.3 F Pulse Rate 92 97 99 Respiratory Rate 22 H 20 18 Blood Pressure 135/66 137/64 123/71 Pulse Oximetry 93 95 96 08/23/20 00:00 08/23/20 04:00 08/23/20 08:00 Temperature 98.8 F 98.5 F 98.1 F Pulse Rate 82 83 92 Respiratory Rate 22 H 20 20 Blood Pressure 116/61 102/72 134/62 Pulse Oximetry 93 97 94 Intake/Output Intake/Output: Intake & Output 08/20/20 08/21/20 08/22/20 08/23/20 23:59 23:59 23:59 23:59 Intake Total 648 1060 1525 0 [place]
[2020-08-23 12:00] VITALS: BP 126/55; PULSE 85; RESP 18; TEMP 36.9; O2SAT 96
[2020-08-23 12:30] LABS: Glucose Point of Care 228 (65-105)
[2020-08-23 12:46] LABS: Basophils Percent Auto 0.3 % (0.2-1.2); Eosinophils Absolute Auto 0.2 K/mm3 (0-0.3); Eosinophils Percent Auto 1.1 % (0-4.4); Hematocrit 33.3 % (37.0-47.0); Hemoglobin 10.4 g/dL (12.0-15.0); Immature Granulocyte Absolute 0.28 K/mm3 (0.00-0.031); Immature Granulocyte Percent A 1.8 % (0-0.5); Lymphocytes Absolute Auto 1.55 K/mm3 (0.9-3.2); Lymphocytes Percent Auto 9.7 % (18.3-44.2); Mean Corpuscular HGB Conc 31.2 g/dl (32-36); Mean Corpuscular Hemoglobin 28.8 pg (26-34); Mean Corpuscular Volume 92.2 fl (80-100); Mean Platelet Volume 12.8 fl (7.4-10.4); Monocytes Absolute Auto 0.7 K/mm3 (0.1-0.6); Monocytes Percent Auto 4.4 % (2.6-8.5); Neutrophils Absolute Auto 13.2 K/mm3 (1.3-6.7); Neutrophils Percent Auto 82.7 % (45.5-73.1); Platelet Count Result 232 k/mm3 (150-375); Red Blood Count 3.61 M/mm3 (4.2-5.4); Red Cell Distribution Width 14.5 % (11.5-14.5); White Blood Count 15.9 K/mm3 (4.5-10.0)
[2020-08-23 13:04] LABS: Alanine Aminotransferase 25 U/L (4-35); Albumin Level 2.6 g/dL (3.5-5.1); Alkaline Phosphatase 84 U/L (38-126); Anion Gap 5 mmol/L (8-16); Aspartate Amino Transferase 33 U/L (14-36); Bilirubin,Total 0.4 mg/dL (0.2-1.3); Blood Urea Nitrogen 41 mg/dL (7-17); Calcium 8.4 mg/dL (8.4-10.2); Carbon Dioxide 29 mmol/L (22-30); Chloride 109 mmol/L (98-107); Estimated CRCL calculation 40 ml/min; Estimated Glomerular Filt Rate > 60; Glucose 262 mg/dL (65-105); Potassium 4.7 mmol/L (3.4-5.0); Sodium 143 mmol/L (137-145)
[2020-08-23] MEDS: SODIUM CHLORIDE 0.9% IV 1,000 ML 75 ML IV CONT (14:44)
[2020-08-23 16:00] VITALS: BP 139/68; PULSE 96; RESP 20; TEMP 36.7; O2SAT 95
--- NOTE | 2020-08-23 16:27 | WPDGIPROGNO ---
Progress Note: A&P Assessment and Plan (1) Dysphagia: Code(s): R13.10 - Dysphagia, unspecified Status: Acute Assessment and Plan: probably from CVA, also COVID infection I just talked to , he would like to wait at least until Thursday before making decision to proceed with g-tube, he is going to talk to other family members continue feeding by ngt (2) Stroke: Code(s): I63.9 - Cerebral infarction, unspecified Status: Acute (3) Pneumonia due to COVID-19 virus: Code(s): U07.1 - COVID-19; J12.82 - Pneumonia due to coronavirus disease 2019 Status: Acute (4) Diabetes mellitus: Qualifiers: Diabetes mellitus type: type 2 Diabetes mellitus halfway insulin use: without halfway use Diabetes mellitus complication status: without complication Qualified Code(s): E11.9 - Type 2 diabetes mellitus without complications Code(s): E11.9 - Type 2 diabetes mellitus without complications Status: Chronic (5) Acute encephalopathy: Code(s): G93.40 - Encephalopathy, unspecified Status: Acute Assessment and Plan: unchanged Subjective Date/time seen: 08/23/20 16:27 Interval history: mental status unchanged, she is tolerating tube feeding by NGT at 60 ml/h Review of Systems Review of Systems: All systems reviewed & are unremarkable except as noted in HPI and below Exam Const: General: no acute distress and lethargic HENMT: General nose exam: Normal nares present Other: NGT in place Eyes: General: appearance normal, both eyes and all related structures Neck: Neck: supple Resp: Auscultation: no crackles and diminished lung sounds Cardio: Rate: regular rate GI: Inspection: non-distended GI Palp: Yes Soft to palpation and No Firmness to palpation present (GI) Auscultation: normal bowel sounds Urinary Catheter: Urinary Catheter: urine clear Skin: General skin exam: no erythema Neuro: Other: awake, she knows her name but slow to respond and confused Extrem: General: no edema Objective Data Vital Signs Vital Signs: Vital Signs - 24 hr 08/22/20 20:00 08/23/20 00:00 08/23/20 04:00 Temperature 98.3 F 98.8 F 98.5 F Pulse Rate 99 82 83 Respiratory Rate 18 22 H 20 Blood Pressure 123/71 116/61 102/72 Pulse Oximetry 96 93 97 08/23/20 08:00 08/23/20 12:00 Temperature 98.1 F 98.4 F Pulse Rate 92 85 Respiratory Rate 20 18 Blood Pressure 134/62 126/55 L Pulse Oximetry 94 96 Intake/Output Intake/Output: Intake & Output 08/20/20 08/21/20 08/22/20 08/23/20 23:59 23:59 23:59 23:59 Intake Total 648 1060 1525 0 Balance 648 1060 1525 0 Meds/Results Medications: Active Medications Generic Name Dose Route Start Last Admin Trade Name Freq PRN Reason Stop Dose Admin Aspirin 325 mg 08/20/20 21:25 08/23/20 09:02 Aspirin 325 Mg Tablet FEED TUBE 325 mg DAILY@0800 NAZARIO Administration Dextrose 12.5 gm 08/16/20 17:17 Dextrose 50% 25 Gm/50 Ml Syringe IV PUSH PRN PRN Hypoglycemia Protocol Enoxaparin Sodium 40 mg 08/17/20 21:00 08/23/20 09:01 Enoxaparin 40 Mg/0.4 Ml Syringe SUB-Q 40 mg Q12HR NAZARIO Administration Glucagon 1 mg 08/16/20 17:17 Glucagon For Inj 1 Mg Vial IM PRN PRN Hypoglycemia Protocol Glucose 15 gm 08/16/20 17:17 Glucose Oral Gel 15 Gm Of Glucse In 37.5 Gm Tube PO PRN PRN Hypoglycemia Protocol Hydralazine HCl 25 mg 08/21/20 16:35 08/22/20 06:06 Hydralazine Hcl 25 Mg Tablet PO 25 mg Q6H PRN Administration Hypertension Dextrose 1,000 mls @ 100 mls/hr 08/16/20 17:17 Dextrose 5% 1,000 Ml IVPB PRN PRN Hypoglycemia Protocol Sodium Chloride 1,000 mls @ 75 mls/hr 08/23/20 14:20 08/23/20 14:44 Normal Saline Iv IV CONT 75 mls/hr .[id number] NAZARIO Administration Insulin Aspart 3 - 6 units 08/19/20 00:00 08/23/20 12:35 Insulin Aspart (*Bkc) 100 Units/Ml SUB-Q 3 units Q6HR NAZARIO Admini
[2020-08-23 17:56] LABS: Glucose Point of Care 289 (65-105)
[2020-08-23 20:00] VITALS: BP 110/50; PULSE 90; RESP 20; TEMP 37; O2SAT 95
[2020-08-23] MEDS: INSULIN GLARGINE (*BKC) 100 UNITS/ML 17 UNITS SUB-Q (21:06)
[2020-08-24] VITALS: BP 150/91; PULSE 98; RESP 20; TEMP 36.8; O2SAT 100
[2020-08-24 01:15] LABS: Glucose Point of Care 196 (65-105)
[2020-08-24 01:16] LABS: Glucose Point of Care 213 (65-105)
[2020-08-24 04:00] VITALS: BP 132/53; PULSE 98; RESP 20; TEMP 36.6; O2SAT 97
[2020-08-24 06:04] LABS: Glucose Point of Care 219 (65-105)
[2020-08-24] MEDS: INSULIN ASPART (*BKC) 100 UNITS/ML SUB-Q ×2 (06:47→17:48)
[2020-08-24] MEDS: SODIUM CHLORIDE 0.9% IV 1,000 ML 75 ML IV CONT ×2 (07:03→17:05)
[2020-08-24] MEDS: PANTOPRAZOLE SODIUM IV 40 MG VIAL IV PUSH (07:59)
[2020-08-24 08:00] VITALS: BP 152/61; PULSE 98; PULSE 99; RESP 20; RESP 22; TEMP 36.7; O2SAT 91; O2SAT 97
[2020-08-24] MEDS: ENOXAPARIN 40 MG/0.4 ML SYRINGE SUB-Q ×2 (08:00→21:35)
[2020-08-24] MEDS: ASPIRIN 325 MG TABLET FEED TUBE (08:00)
[2020-08-24] MEDS: ROSUVASTATIN 10 MG TABLET 20 MG FEED TUBE (08:01)
--- NOTE | 2020-08-24 09:55 | PM.IMPN ---
Progress Note: A&P Assessment and Plan (1) Acute respiratory failure with hypoxia: Code(s): J96.01 - Acute respiratory failure with hypoxia Status: Acute Assessment and Plan: secondary to COVID pneumonia. Weaned off O2 now. Finished treatment with Remdesivir . Monitor CBC patient still have significant leukocytosis but no evidence of active infection (2) Pneumonia due to COVID-19 virus: Code(s): U07.1 - COVID-19; J12.82 - Pneumonia due to coronavirus disease 2018 Status: Acute Assessment and Plan: aossciated with sepsis Remdesivir completed urine culture blood culture negative (3) Acute encephalopathy: Code(s): G93.40 - Encephalopathy, unspecified Status: Acute Assessment and Plan: Multifactorial most likely related to COVID-19 pneumonia and multiple stroke COVID-19 associated with cerebrovascular disease neurology following carotid Doppler less than 50% stenosis (4) Acute renal failure: Qualifiers: Acute renal failure type: unspecified Qualified Code(s): N17.9 - Acute kidney failure, unspecified Code(s): N17.9 - Acute kidney failure, unspecified Status: Acute Assessment and Plan: secondary to dehydration treated with IV fluid (5) Hypernatremia: Code(s): E87.0 - Hyperosmolality and hypernatremia Status: Acute Assessment and Plan: Appears to be secondary to dehydration. Improved (6) Transaminitis: Code(s): R74.01 - Elevation of levels of liver transaminase levels Status: Acute Assessment and Plan: Secondary to COVID pneumonia. Monitor CMP (7) Diabetes mellitus: Qualifiers: Diabetes mellitus type: type 2 Diabetes mellitus fci insulin use: without fci use Diabetes mellitus complication status: without complication Qualified Code(s): E11.9 - Type 2 diabetes mellitus without complications Code(s): E11.9 - Type 2 diabetes mellitus without complications Status: Chronic Assessment and Plan: Insulin sliding scale and hypoglycemic protocol. Lantus uncontrolled daily evaluation for adjustment (8) Rash: Code(s): R21 - Rash and other nonspecific skin eruption Status: Acute Assessment and Plan: Continue miconazole ointment to rash located on buttocks frequent turning offloading (9) DVT prophylaxis: Code(s): Z29.9 - Encounter for prophylactic measures, unspecified Status: Acute Assessment and Plan: Lovenox (10) Dysphagia: Code(s): R13.10 - Dysphagia, unspecified Status: Acute Assessment and Plan: Secondary to acute stroke currently patient has nasogastric tube GI was consulted regarding PEG tube discussed with the patient hospice will continue to monitor until Thursday continue current treatment will assess patient progression possible PEG tube placement versus hospice and comfort care patient is leaning more toward PEG tube placement the [facility] placement will assess patient condition on Thursday final decision to be made on Thursday if condition improved plan to possible PEG tube placement on Thursday Subjective Date/time seen: 08/24/20 09:55 Interval history: Patient seen and examined Patient is nonverbal but able to follow commands COVID-19 positive Still has leukocytosis Has nasogastric tube GI recommendation appreciated regarding PEG tube placement Discussed with neurology aware of stroke continue current treatment discussed with the patient plan to continue current treatment until Thursday no plan for PEG tube before Thursday final plan regarding PEG tube versus hospice depend on patient's progression on Thursday but the patient is leaning toward PEG tube and placement in [facility] Has hyperglycemia medication was adjusted I am seeing the patient for multiple stroke Exam Narrative: Exam Narrative: Alert follow commands Chest no wheeze
--- NOTE | 2020-08-24 11:52 | PCNFU ---
Nutrition Follow-Up Complete: Swallowing Difficulties as related to possible dysphagia as evidenced by NPO Goal: Meet estimated nutritional needs Patient is currently meeting nutritional goal. No new goal. Pt current nutrition is Glucerna 1.2 at 60 ml/hr. Last recorded weight is 59.7 kg,no new weight to report. Bowel Motility: +BM reported 08/24 Labs Reviewed:Hct 33.5,Hgb 10.7 Meds Noted:Protonix,Crestor, Lovenox,NS, NovoLog. Additional Notes: Nutrition follow up. Spoke with nursing today due to COVID restrictions. Patient is tolerating tube feedings of Glucerna 1.2 at 60 ml/hr which is providing patient with 1584 kcals/79 gms protein. Meeting 100% of patients caloric needs. Per MD notes, Plans for possible PEG vs Hospice next week. Monitoring: Weight, tube feeding tolerance, labs, meds every Thursday and Thursday.
[2020-08-24 11:59] LABS: Glucose Point of Care 237 (65-105)
[2020-08-24 12:00] VITALS: BP 183/75; PULSE 103; RESP 22; TEMP 37.1; O2SAT 96
[2020-08-24 12:02] LABS: Basophils Percent Auto 0.2 % (0.2-1.2); Eosinophils Absolute Auto 0.2 K/mm3 (0-0.3); Eosinophils Percent Auto 1.1 % (0-4.4); Hematocrit 31.1 % (37.0-47.0); Hemoglobin 9.9 g/dL (12.0-15.0); Immature Granulocyte Absolute 0.19 K/mm3 (0.00-0.031); Immature Granulocyte Percent A 1.1 % (0-0.5); Lymphocytes Absolute Auto 1.49 K/mm3 (0.9-3.2); Lymphocytes Percent Auto 8.6 % (18.3-44.2); Mean Corpuscular HGB Conc 31.8 g/dl (32-36); Mean Corpuscular Hemoglobin 29.6 pg (26-34); Mean Corpuscular Volume 92.8 fl (80-100); Mean Platelet Volume 12.7 fl (7.4-10.4); Monocytes Absolute Auto 0.8 K/mm3 (0.1-0.6); Monocytes Percent Auto 4.8 % (2.6-8.5); Neutrophils Absolute Auto 14.6 K/mm3 (1.3-6.7); Neutrophils Percent Auto 84.2 % (45.5-73.1); Platelet Count Result 236 k/mm3 (150-375); Red Blood Count 3.35 M/mm3 (4.2-5.4); Red Cell Distribution Width 14.6 % (11.5-14.5); White Blood Count 17.3 K/mm3 (4.5-10.0)
[2020-08-24 12:14] LABS: Alanine Aminotransferase 26 U/L (4-35); Albumin Level 2.5 g/dL (3.5-5.1); Alkaline Phosphatase 85 U/L (38-126); Anion Gap 3 mmol/L (8-16); Aspartate Amino Transferase 35 U/L (14-36); Bilirubin,Total 0.3 mg/dL (0.2-1.3); Blood Urea Nitrogen 36 mg/dL (7-17); Calcium 7.8 mg/dL (8.4-10.2); Carbon Dioxide 29 mmol/L (22-30); Chloride 112 mmol/L (98-107); Estimated CRCL calculation 40 ml/min; Estimated Glomerular Filt Rate > 60; Glucose 256 mg/dL (65-105); Potassium 4.3 mmol/L (3.4-5.0); Sodium 144 mmol/L (137-145)
[2020-08-24 16:00] VITALS: BP 153/68; PULSE 111; RESP 18; TEMP 36.8; O2SAT 97
[2020-08-24 18:45] LABS: Glucose Point of Care 245 (65-105)
[2020-08-24 20:00] VITALS: BP 153/98; PULSE 100; RESP 18; TEMP 36.2; O2SAT 98
[2020-08-24] MEDS: INSULIN GLARGINE (*BKC) 100 UNITS/ML 25 UNITS SUB-Q (21:35)
[2020-08-25] VITALS (7 sets, daily range): BP systolic 148–162; BP diastolic 75–96; PULSE 72–100; RESP 18–24; TEMP 36–36.5; O2SAT 96–100
[2020-08-25] MEDS: SODIUM CHLORIDE 0.9% IV 1,000 ML 75 ML IV CONT ×2 (06:14→19:35)
[2020-08-25] MEDS: INSULIN ASPART (*BKC) 100 UNITS/ML SUB-Q ×3 (06:37→18:33)
[2020-08-25] MEDS: PANTOPRAZOLE SODIUM IV 40 MG VIAL IV PUSH (08:03)
[2020-08-25] MEDS: ROSUVASTATIN 10 MG TABLET 20 MG FEED TUBE (08:03)
[2020-08-25] MEDS: ENOXAPARIN 40 MG/0.4 ML SYRINGE SUB-Q ×2 (08:03→20:47)
[2020-08-25] MEDS: ASPIRIN 325 MG TABLET FEED TUBE (08:04)
--- NOTE | 2020-08-25 10:08 | PM.IMPN ---
Progress Note: A&P Assessment and Plan (1) Acute respiratory failure with hypoxia: Code(s): J96.01 - Acute respiratory failure with hypoxia Status: Acute Assessment and Plan: secondary to COVID pneumonia. Weaned off O2 now. Finished treatment with Remdesivir . Monitor CBC patient still have significant leukocytosis but no evidence of active infection (2) Pneumonia due to COVID-19 virus: Code(s): U07.1 - COVID-19; J12.82 - Pneumonia due to coronavirus disease 2018 Status: Acute Assessment and Plan: aossciated with sepsis Remdesivir completed urine culture blood culture negative (3) Acute encephalopathy: Code(s): G93.40 - Encephalopathy, unspecified Status: Acute Assessment and Plan: Multifactorial most likely related to COVID-19 pneumonia and multiple stroke COVID-19 associated with cerebrovascular disease neurology following carotid Doppler less than 50% stenosis (4) Acute renal failure: Qualifiers: Acute renal failure type: unspecified Qualified Code(s): N17.9 - Acute kidney failure, unspecified Code(s): N17.9 - Acute kidney failure, unspecified Status: Acute Assessment and Plan: secondary to dehydration treated with IV fluid (5) Hypernatremia: Code(s): E87.0 - Hyperosmolality and hypernatremia Status: Acute Assessment and Plan: Appears to be secondary to dehydration. Improved (6) Transaminitis: Code(s): R74.01 - Elevation of levels of liver transaminase levels Status: Acute Assessment and Plan: Secondary to COVID pneumonia. Monitor CMP (7) Diabetes mellitus: Qualifiers: Diabetes mellitus type: type 2 Diabetes mellitus alf insulin use: without alf use Diabetes mellitus complication status: without complication Qualified Code(s): E11.9 - Type 2 diabetes mellitus without complications Code(s): E11.9 - Type 2 diabetes mellitus without complications Status: Chronic Assessment and Plan: Insulin sliding scale and hypoglycemic protocol. Lantus uncontrolled daily evaluation for adjustment (8) Rash: Code(s): R21 - Rash and other nonspecific skin eruption Status: Acute Assessment and Plan: Continue miconazole ointment to rash located on buttocks frequent turning offloading (9) DVT prophylaxis: Code(s): Z29.9 - Encounter for prophylactic measures, unspecified Status: Acute Assessment and Plan: Lovenox (10) Dysphagia: Code(s): R13.10 - Dysphagia, unspecified Status: Acute Assessment and Plan: Secondary to acute stroke currently patient has nasogastric tube GI was consulted regarding PEG tube discussed with the patient hospice will continue to monitor until Thursday continue current treatment will assess patient progression possible PEG tube placement versus hospice and comfort care patient is leaning more toward PEG tube placement the halfway placement will assess patient condition on Thursday final decision to be made on Thursday if condition improved plan to possible PEG tube placement on Thursday08/25/2020 patient condition improving probably will proceed with PEG tube placement on Thursday or Thursday Subjective Date/time seen: 08/25/20 10:08 Interval history: Patient seen and examined Patient is nonverbal but able to follow commands COVID-19 positive Still has leukocytosis Has nasogastric tube GI recommendation appreciated regarding PEG tube placement Discussed with neurology aware of stroke continue current treatment discussed with the patient plan to continue current treatment until Thursday no plan for PEG tube before Thursday final plan regarding PEG tube versus hospice depend on patient's progression on Thursday but the patient is leaning toward PEG tube and placement in halfway 08/25/2020 patient is more alert able to open eyes
[2020-08-25] MEDS: INSULIN ASPART (*BKC) 100 UNITS/ML 6 UNITS SUB-Q ×2 (12:10→18:33)
[2020-08-25 12:11] LABS: Glucose Point of Care 285 (65-105)
[2020-08-25 12:11] LABS: Glucose Point of Care 291 (65-105)
[2020-08-25 15:33] LABS: Basophils Percent Auto 0.2 % (0.2-1.2); Eosinophils Absolute Auto 0.1 K/mm3 (0-0.3); Eosinophils Percent Auto 0.5 % (0-4.4); Hematocrit 30.2 % (37.0-47.0); Hemoglobin 9.9 g/dL (12.0-15.0); Immature Granulocyte Absolute 0.19 K/mm3 (0.00-0.031); Immature Granulocyte Percent A 1.1 % (0-0.5); Immature Platelet Fraction Pct 11.2 % (0.9-11.2); Lymphocytes Absolute Auto 1.27 K/mm3 (0.9-3.2); Lymphocytes Percent Auto 7.2 % (18.3-44.2); Mean Corpuscular HGB Conc 32.8 g/dl (32-36); Mean Corpuscular Hemoglobin 29.6 pg (26-34); Mean Corpuscular Volume 90.4 fl (80-100); Monocytes Absolute Auto 0.9 K/mm3 (0.1-0.6); Monocytes Percent Auto 4.8 % (2.6-8.5); Neutrophils Absolute Auto 15.2 K/mm3 (1.3-6.7); Neutrophils Percent Auto 86.2 % (45.5-73.1); Red Blood Count 3.34 M/mm3 (4.2-5.4); Red Cell Distribution Width 14.9 % (11.5-14.5); White Blood Count 17.6 K/mm3 (4.5-10.0)
[2020-08-25 15:51] LABS: Alanine Aminotransferase 30 U/L (4-35); Albumin Level 2.4 g/dL (3.5-5.1); Alkaline Phosphatase 76 U/L (38-126); Anion Gap 5 mmol/L (8-16); Aspartate Amino Transferase 47 U/L (14-36); Bilirubin,Total 0.4 mg/dL (0.2-1.3); Blood Urea Nitrogen 35 mg/dL (7-17); Calcium 8.1 mg/dL (8.4-10.2); Carbon Dioxide 23 mmol/L (22-30); Chloride 117 mmol/L (98-107); Estimated CRCL calculation 36 ml/min; Estimated Glomerular Filt Rate 60; Glucose 309 mg/dL (65-105); Potassium 5.3 mmol/L (3.4-5.0); Sodium 145 mmol/L (137-145)
[2020-08-25 18:37] LABS: Glucose Point of Care 261 (65-105)
[2020-08-25] MEDS: INSULIN GLARGINE (*BKC) 100 UNITS/ML 25 UNITS SUB-Q (20:47)
[2020-08-25 22:04] LABS: Glucose Point of Care 247 (65-105)
[2020-08-26] VITALS: BP 164/85; PULSE 93; RESP 18; TEMP 36.2; O2SAT 96
[2020-08-26] MEDS: INSULIN ASPART (*BKC) 100 UNITS/ML 6 UNITS SUB-Q ×4 (00:30→17:54)
[2020-08-26] MEDS: INSULIN ASPART (*BKC) 100 UNITS/ML SUB-Q ×4 (00:30→17:53)
[2020-08-26 00:43] LABS: Glucose Point of Care 261 (65-105)
[2020-08-26 05:00] VITALS: BP 186/76; PULSE 56; RESP 18; TEMP 36.2; O2SAT 95
[2020-08-26 05:51] LABS: Glucose Point of Care 271 (65-105)
[2020-08-26] MEDS: SODIUM CHLORIDE 0.9% IV 1,000 ML 75 ML IV CONT ×2 (09:05→22:40)
[2020-08-26] MEDS: PANTOPRAZOLE SODIUM IV 40 MG VIAL IV PUSH (09:11)
[2020-08-26] MEDS: ROSUVASTATIN 10 MG TABLET 20 MG FEED TUBE (09:11)
[2020-08-26] MEDS: ASPIRIN 325 MG TABLET FEED TUBE (09:11)
[2020-08-26] MEDS: ENOXAPARIN 40 MG/0.4 ML SYRINGE SUB-Q ×2 (09:11→20:24)
--- NOTE | 2020-08-26 09:45 | PM.IMPN ---
Progress Note: A&P Assessment and Plan (1) Acute respiratory failure with hypoxia: Code(s): J96.01 - Acute respiratory failure with hypoxia Status: Acute Assessment and Plan: secondary to COVID pneumonia. Weaned off O2 now. Finished treatment with Remdesivir . Monitor CBC patient still have significant leukocytosis but no evidence of active infection (2) Pneumonia due to COVID-19 virus: Code(s): U07.1 - COVID-19; J12.82 - Pneumonia due to coronavirus disease 2018 Status: Acute Assessment and Plan: aossciated with sepsis completed Remdesivir , urine culture blood culture negative (3) Acute encephalopathy: Code(s): G93.40 - Encephalopathy, unspecified Status: Acute Assessment and Plan: Multifactorial most likely related to COVID-19 pneumonia and multiple stroke COVID-19 associated with cerebrovascular disease neurology following carotid Doppler less than 50% stenosis continue aspirin (4) Acute renal failure: Qualifiers: Acute renal failure type: unspecified Qualified Code(s): N17.9 - Acute kidney failure, unspecified Code(s): N17.9 - Acute kidney failure, unspecified Status: Acute Assessment and Plan: secondary to dehydration treated with IV fluid (5) Hypernatremia: Code(s): E87.0 - Hyperosmolality and hypernatremia Status: Acute Assessment and Plan: Appears to be secondary to dehydration. Improved (6) Transaminitis: Code(s): R74.01 - Elevation of levels of liver transaminase levels Status: Acute Assessment and Plan: Secondary to COVID pneumonia. Monitor CMP (7) Diabetes mellitus: Qualifiers: Diabetes mellitus type: type 2 Diabetes mellitus buttermaker insulin use: without buttermaker use Diabetes mellitus complication status: without complication Qualified Code(s): E11.9 - Type 2 diabetes mellitus without complications Code(s): E11.9 - Type 2 diabetes mellitus without complications Status: Chronic Assessment and Plan: Insulin sliding scale and hypoglycemic protocol. Lantus uncontrolled daily evaluation for adjustment (8) Rash: Code(s): R21 - Rash and other nonspecific skin eruption Status: Acute Assessment and Plan: Continue miconazole ointment to rash located on buttocks frequent turning offloading (9) DVT prophylaxis: Code(s): Z29.9 - Encounter for prophylactic measures, unspecified Status: Acute Assessment and Plan: Lovenox (10) Dysphagia: Code(s): R13.10 - Dysphagia, unspecified Status: Acute Assessment and Plan: Secondary to acute stroke currently patient has nasogastric tube GI was consulted regarding PEG tube discussed with the patient hospice will continue to monitor until Thursday continue current treatment will assess patient progression possible PEG tube placement versus hospice and comfort care patient is leaning more toward PEG tube placement the [facility] placement will assess patient condition on Thursday final decision to be made on Thursday if condition improved plan to possible PEG tube placement on Thursday08/25/2020 patient condition improving probably will proceed with PEG tube placement on Thursday or Thursday08/26/2020 hyperkalemia Kayexalate plan for PEG tube placement Thursday or Thursday Subjective Date/time seen: 08/26/20 09:45 Interval history: Patient seen and examined Patient is nonverbal but able to follow commands COVID-19 positive Still has leukocytosis Has nasogastric tube GI recommendation appreciated regarding PEG tube placement Discussed with neurology aware of stroke continue current treatment discussed with the patient plan to continue current treatment until Thursday no plan for PEG tube before Thursday final plan regarding PEG tube versus hospice depend on patient's progression on Thursday but the patient is le
--- NOTE | 2020-08-26 09:57 | WPDGIPROGNO ---
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 (3) Pneumonia due to COVID-19 virus: Code(s): U07.1 - COVID-19; J12.82 - Pneumonia due to coronavirus disease 2019 Status: Acute Assessment and Plan: received treatment and not longer in isolation (4) Diabetes mellitus: Qualifiers: Diabetes mellitus type: type 2 Diabetes mellitus care home insulin use: without termite control technician use Diabetes mellitus complication status: without complication Qualified Code(s): E11.9 - Type 2 diabetes mellitus without complications Code(s): E11.9 - Type 2 diabetes mellitus without complications Status: Chronic (5) Acute encephalopathy: Code(s): G93.40 - Encephalopathy, unspecified Status: Acute Assessment and Plan: unchanged Subjective Date/time seen: 08/26/20 09:57 Interval history: no changes in mental status, still feeding by NGT she is not longer in isolation Review of Systems Review of Systems: All systems reviewed & are unremarkable except as noted in HPI and below Exam Const: General: no acute distress HENMT: General nose exam: Normal nares present Other: NGT in place Eyes: General: appearance normal, both eyes and all related structures Neck: Neck: supple Resp: Auscultation: no crackles and diminished lung sounds Cardio: Rate: regular rate GI: Inspection: non-distended GI Palp: Yes Soft to palpation and No Firmness to palpation present (GI) Auscultation: normal bowel sounds Urinary Catheter: Urinary Catheter: urine clear Skin: General skin exam: no erythema Neuro: Other: awake, she knows her name but slow to respond and confused Extrem: General: no edema Psych: Other: awake, following only simple commands mental status unchanged Objective Data Vital Signs Vital Signs: Vital Signs - 24 hr 08/25/20 10:14 08/25/20 12:00 08/25/20 16:00 Temperature 96.8 F L 97.5 F L Pulse Rate 98 72 94 Respiratory Rate 24 H 20 24 H Blood Pressure 157/81 H 159/75 H Pulse Oximetry 100 98 97 08/25/20 20:00 08/26/20 00:00 08/26/20 05:00 Temperature 97.2 F L 97.1 F L 97.1 F L Pulse Rate 95 93 56 L Respiratory Rate 18 18 18 Blood Pressure 155/76 H 164/85 H 186/76 H Pulse Oximetry 99 96 95 Intake/Output Intake/Output: Intake & Output 08/23/20 08/24/20 08/25/20 08/26/20 23:59 23:59 23:59 23:59 Intake Total 0 1999 2504 1810 Output Total 100 3 Balance 0 1900 2504 1807 Meds/Results Medications: Active Medications Generic Name Dose Route Start Last Admin Trade Name Freq PRN Reason Stop Dose Admin Aspirin 325 mg 08/20/20 21:25 08/26/20 09:11 Aspirin 325 Mg Tablet FEED TUBE 325 mg DAILY@0800 NAZARIO Administration Dextrose 12.5 gm 08/16/20 17:17 Dextrose 50% 25 Gm/50 Ml Syringe IV PUSH PRN PRN Hypoglycemia Protocol Enoxaparin Sodium 40 mg 08/17/20 21:00 08/26/20 09:11 Enoxaparin 40 Mg/0.4 Ml Syringe SUB-Q 40 mg Q12HR NAZARIO Administration Glucagon 1 mg 08/16/20 17:17 Glucagon For Inj 1 Mg Vial IM PRN PRN Hypoglycemia Protocol Glucose 15 gm 08/16/20 17:17 Glucose Oral Gel 15 Gm Of Glucse In 37.5 Gm Tube PO PRN PRN Hypoglycemia Protocol Hydralazine HCl 25 mg 08/21/20 16:35 08/22/20 06:06 Hydralazine Hcl 25 Mg Tablet PO 25 mg Q6H PRN Administration Hypertension Dextrose 1,000 mls @ 100 mls/hr 08/16/20 17:17 Dextrose 5% 1,000 Ml IVPB PRN PRN Hypoglycemia Protocol Sodium Chloride 1,000 mls @ 75 mls/hr 08/23/20
[2020-08-26 10:56] LABS: Ammonia < 9 umol/L (9-30)
[2020-08-26] MEDS: SODIUM POLYSTYRENE SULFONONATE 15 GM/60 ML BTL RECTAL (11:08)
[2020-08-26 11:59] LABS: Glucose Point of Care 212 (65-105)
[2020-08-26 14:00] VITALS: BP 151/70; PULSE 103; RESP 20; TEMP 36.4; O2SAT 100
[2020-08-26 17:54] LABS: Glucose Point of Care 218 (65-105)
[2020-08-26] MEDS: INSULIN GLARGINE (*BKC) 100 UNITS/ML 25 UNITS SUB-Q (20:24)
[2020-08-26 20:36] LABS: Glucose Point of Care 183 (65-105)
[2020-08-26 22:00] VITALS: BP 154/75; PULSE 52; RESP 20; TEMP 36.5; O2SAT 98
[2020-08-27] VITALS (11 sets, daily range): BP systolic 77–162; BP diastolic 46–72; PULSE 72–100; RESP 16–26; TEMP 36.2–36.8; O2SAT 95–99
[2020-08-27 00:03] LABS: Glucose Point of Care 149 (65-105)
[2020-08-27 03:16] LABS: Glucose Point of Care 123 (65-105)
[2020-08-27 05:56] LABS: Glucose Point of Care 115 (65-105)
[2020-08-27] MEDS: PANTOPRAZOLE SODIUM IV 40 MG VIAL IV PUSH (08:26)
--- NOTE | 2020-08-27 08:30 | PC.NURSE ---
To GI Lab per KAVITA hart on standby. Report given to JR.
--- NOTE | 2020-08-27 08:58 | WPDANESEPPF ---
Anes - Initial Pre Proc Eval Procedure: Operation Date: 08/27/20 13:00 Proposed Procedures p Percutaneous Endoscopic Gastrostomy - Fabio Monreal MD Date/Time: 08/27/20 08:58 Surgeon: Neri Mann MD Pre Op Diagnosis: Sepsis, dehydration Patient Data Age: 85 Gender: F Height: 5 ft 4 in Weight: 59.7 kg Last Vital Signs Temp 36.4 C L 08/27/20 06:00 Pulse 100 08/27/20 06:00 Resp 20 08/27/20 06:00 BP 102/71 08/27/20 06:00 Pulse Ox 99 08/27/20 06:00 Allergies Allergy/AdvReac Type Severity Reaction Status Date / Time Penicillins Allergy Hives Verified 07/26/20 12:24 Sulfa (Sulfonamide Allergy Hives Verified 07/26/20 12:24 Antibiotics) Home Medications Medication Instructions Recorded Confirmed Type amlodipine 10 mg PO DAILY 08/15/20 08/15/20 History rosuvastatin 20 mg PO DAILY 08/15/20 08/15/20 History Laboratory Tests 08/26/20 08/26/20 08/26/20 10:35 11:50 17:52 POC Capillary Glucose 212 mg/dl H mg/dl 218 mg/dl H mg/dl (65-105) (65-105) Ammonia < 9 umol/L L umol/L (9-30) 08/26/20 08/27/20 08/27/20 20:27 00:00 03:12 POC Capillary Glucose 183 mg/dl H mg/dl 149 mg/dl H mg/dl 123 mg/dl H mg/dl (65-105) (65-105) (65-105) Ammonia 08/27/20 05:53 POC Capillary Glucose 115 mg/dl H mg/dl (65-105) Ammonia Patient hx anesthesia problems: none Family hx anesthesia problems: none PMFSH Past Medical History Medical History Dysphagia Stroke Social History Social History Smoking status: Never smoker Alcohol intake: never Substance use: never Gender identity (if verbalized by the patient): Female Spiritual care concerns: No Anes - Eval Final PreProcedure Day of Procedure 08/27/20 08:58 Patient weight: normal Heart: regular rate and rhythm Lungs: decreased breath sounds Neurological: unresponsive (aphasic) Last oral intake: >/= 8 hours ASA classification: IV Emergent: no Anesthetic plan: proceed Anesthesia type and monitoring: general GIVS and standard monitoring Informed Consent: The patient's anesthetic plan and its attendant risks and benefits were discussed with the patient/family/POA. Questions were solicited and answers provided to the satisfaction of the patient/family/POA.
[2020-08-27 09:03] LABS: Glucose Point of Care 115 (65-105)
[2020-08-27] MEDS: LACTATED RINGERS 1,000 ML 150 ML IV CONT (09:13)
[2020-08-27] MEDS: levoFLOXacin 500 MG/D5W 100 ML 500 MG/100 ML BAG 100 MG IVPB (09:21)
--- NOTE | 2020-08-27 10:45 | PC.NURSE ---
Returned from GI Lab. Report received from JR.
[2020-08-27] MEDS: ASPIRIN 325 MG TABLET FEED TUBE (11:55)
[2020-08-27] MEDS: ROSUVASTATIN 10 MG TABLET 20 MG FEED TUBE (11:56)
[2020-08-27] MEDS: ENOXAPARIN 40 MG/0.4 ML SYRINGE SUB-Q ×2 (11:56→21:37)
[2020-08-27 12:19] LABS: Glucose Point of Care 89 (65-105)
--- NOTE | 2020-08-27 13:11 | PCOTNOTE ---
Attempted to see patient for OT, patient sleeping soundly and unable to rouse to participate. Patient not seen for OT this date. Will continue plan of care tomorrow, 08/28/2020.
--- NOTE | 2020-08-27 15:20 | PM.IMPN ---
Progress Note: A&P Assessment and Plan (1) Acute respiratory failure with hypoxia: Code(s): J96.01 - Acute respiratory failure with hypoxia Status: Resolved Assessment and Plan: Secondary to COVID pneumonia. Weaned off O2 now. Finished treatment with Remdesivir, Off isolation now. (2) Pneumonia due to COVID-19 virus: Code(s): U07.1 - COVID-19; J12.82 - Pneumonia due to coronavirus disease 2019 Status: Resolved Assessment and Plan: completed Remdesivir, off isolation, on RA (3) Acute encephalopathy: Code(s): G93.40 - Encephalopathy, unspecified Status: Acute Assessment and Plan: Multifactorial most likely related to COVID-19 pneumonia and multiple stroke COVID-19 (4) Acute renal failure: Qualifiers: Acute renal failure type: unspecified Qualified Code(s): N17.9 - Acute kidney failure, unspecified Code(s): N17.9 - Acute kidney failure, unspecified Status: Resolved Assessment and Plan: stop fluids (5) Hypernatremia: Code(s): E87.0 - Hyperosmolality and hypernatremia Status: Acute Assessment and Plan: Appears to be secondary to dehydration. (6) Transaminitis: Code(s): R74.01 - Elevation of levels of liver transaminase levels Status: Acute Assessment and Plan: Secondary to COVID pneumonia. Monitor CMP (7) Diabetes mellitus: Qualifiers: Diabetes mellitus type: type 2 Diabetes mellitus detention insulin use: without medical terminologist use Diabetes mellitus complication status: without complication Qualified Code(s): E11.9 - Type 2 diabetes mellitus without complications Code(s): E11.9 - Type 2 diabetes mellitus without complications Status: Chronic Assessment and Plan: Insulin sliding scale and hypoglycemic protocol. On Lantus (8) Rash: Code(s): R21 - Rash and other nonspecific skin eruption Status: Acute Assessment and Plan: Continue miconazole ointment to rash located on buttocks frequent turning offloading (9) DVT prophylaxis: Code(s): Z29.9 - Encounter for prophylactic measures, unspecified Status: Acute Assessment and Plan: Lovenox (10) Dysphagia: Code(s): R13.10 - Dysphagia, unspecified Status: Acute Assessment and Plan: Secondary to acute stroke currently patient has nasogastric tube GI considerations for hospice by going on not finalized yet. Subjective Date/time seen: 08/27/20 15:20 Interval history: Patient seen and examined Patient is nonverbal but able to follow commands Off isolation today History of multiple strokes, recent covid pneumonia, had peg tube. Review of Systems Review of Systems: All systems reviewed & are unremarkable except as noted in HPI and below Exam Narrative: Exam Narrative: Frail, elderly, chronically ill HENMT: Head: normal to inspection Resp: Effort & Inspection: no respiratory distress Auscultation: no rhonchi and no wheezes Cardio: Rate: regular rate Rhythm: regular rhythm GI: Inspection: normal to inspection and other (PEG tube in situ ) GI Palp: No abdominal tenderness, No Guarding due to palpation present (GI) and No Hepatomegaly present Auscultation: normal bowel sounds Neuro: General: oriented to person Objective Data Vital Signs Vital Signs: Vital Signs - 24 hr 08/26/20 22:00 08/27/20 06:00 08/27/20 09:12 Temperature 36.5 C 36.4 C L 36.2 C L Pulse Rate 52 L 100 91 Respiratory Rate 20 20 16 Blood Pressure 154/75 H 102/71 147/72 H Pulse Oximetry 98 99 97 08/27/20 10:07 08/27/20 10:17 08/27/20 10:27 Temperature Pulse Rate 72 72 84 Respiratory Rate 20 26 H 23 H Blood Pressure 77/46 L 101/59 L 110/54 L Pulse Oximetry 97 98 96 08/27/20 10:50 08/27/20 11:05 08/27/20 11:35 Temperature 36.5 C 36.6 C 36.7 C Pulse Rate 87 86 87 Respiratory Rate 18 18 16 Blood Pressure 135/65 136/6
[2020-08-27] MEDS: INSULIN ASPART (*BKC) 100 UNITS/ML 6 UNITS SUB-Q (17:36)
[2020-08-27 17:43] LABS: Glucose Point of Care 179 (65-105)
[2020-08-27] MEDS: INSULIN GLARGINE (*BKC) 100 UNITS/ML 25 UNITS SUB-Q (23:58)
[2020-08-28 00:46] LABS: Glucose Point of Care 164 (65-105)
[2020-08-28] MEDS: INSULIN ASPART (*BKC) 100 UNITS/ML 6 UNITS SUB-Q ×5 (05:41→23:58)
[2020-08-28 06:00] VITALS: BP 148/68; PULSE 85; RESP 16; TEMP 36.5; O2SAT 95
[2020-08-28 06:00] LABS: Glucose Point of Care 103 (65-105)
--- NOTE | 2020-08-28 08:34 | WPDANESPN ---
Anes - Prog Note Post-Op Date/Time: 08/28/20 08:34 Cardiovascular status: normal Respiratory status: normal Airway patency: baseline Mental status: baseline Post-Op hydration status: normal Vital Signs: Last Vital Signs Temp 36.5 C 08/28/20 06:00 Pulse 85 08/28/20 06:00 Resp 16 08/28/20 06:00 BP 148/68 H 08/28/20 06:00 Pulse Ox 95 08/28/20 06:00 Pain Score (VAS): 4 Laboratory Tests 08/25/20 15:19 08/25/20 15:19 08/27/20 08/27/20 08/27/20 09:01 12:03 17:33 POC Capillary Glucose 115 H 89 179 H 08/27/20 08/28/20 23:57 05:40 POC Capillary Glucose 164 H 103 Post-procedural complaints: none Patient Feedback: Patient satisfied with anesthetic care.
[2020-08-28] MEDS: ROSUVASTATIN 10 MG TABLET 20 MG FEED TUBE (09:03)
[2020-08-28] MEDS: PANTOPRAZOLE SODIUM IV 40 MG VIAL IV PUSH (09:03)
[2020-08-28] MEDS: ENOXAPARIN 40 MG/0.4 ML SYRINGE SUB-Q ×2 (09:03→20:09)
[2020-08-28] MEDS: ASPIRIN 325 MG TABLET FEED TUBE (09:03)
[2020-08-28 11:49] LABS: Glucose Point of Care 128 (65-105)
[2020-08-28 12:22] LABS: Basophils Percent Auto 0.2 % (0.2-1.2); Eosinophils Absolute Auto 0.1 K/mm3 (0-0.3); Eosinophils Percent Auto 1.1 % (0-4.4); Hematocrit 26.3 % (37.0-47.0); Hemoglobin 8.3 g/dL (12.0-15.0); Immature Granulocyte Absolute 0.06 K/mm3 (0.00-0.031); Immature Granulocyte Percent A 0.5 % (0-0.5); Lymphocytes Absolute Auto 1.41 K/mm3 (0.9-3.2); Lymphocytes Percent Auto 10.9 % (18.3-44.2); Mean Corpuscular HGB Conc 31.6 g/dl (32-36); Mean Corpuscular Hemoglobin 29.6 pg (26-34); Mean Corpuscular Volume 93.9 fl (80-100); Mean Platelet Volume 12.5 fl (7.4-10.4); Monocytes Absolute Auto 0.6 K/mm3 (0.1-0.6); Monocytes Percent Auto 4.8 % (2.6-8.5); Neutrophils Absolute Auto 10.6 K/mm3 (1.3-6.7); Neutrophils Percent Auto 82.5 % (45.5-73.1); Platelet Count Result 160 k/mm3 (150-375); Red Cell Distribution Width 15.7 % (11.5-14.5); White Blood Count 12.9 K/mm3 (4.5-10.0)
[2020-08-28 12:41] LABS: Anion Gap 3 mmol/L (8-16); Blood Urea Nitrogen 42 mg/dL (7-17); Calcium 8.7 mg/dL (8.4-10.2); Carbon Dioxide 27 mmol/L (22-30); Chloride 119 mmol/L (98-107); Estimated CRCL calculation 27 ml/min; Estimated Glomerular Filt Rate 43; Glucose 142 mg/dL (65-105); Sodium 149 mmol/L (137-145)
--- NOTE | 2020-08-28 13:59 | PCDIET ---
Nutrition Follow-Up Complete: Nutrition Diagnosis: Swallowing difficulty related to possible dysphagia as evidenced by NPO status. Nutrition Goal: Patient to meet estimated nutritional needs. Goal in progress. Glucerna 1.2 resumed at 60mL/hr goal rate with 30mL water flush every 4 hours via PEG. Last recorded weight is 59.7 kg. Recommend obtaining new weight. Bowel Motility: Last documented BM on 08/26/20 x 1. Labs Reviewed: Glu (103) Meds Noted: Hydralazine, Novolog, Lantus, Protonix, Crestor Additional Notes: Buttocks macerated. No other skin issues documented. Will continue to monitor with same goal. Nutrition Monitoring and Evaluation: Will monitor every Thursday/Thursday.
[2020-08-28 14:00] VITALS: BP 156/69; PULSE 81; RESP 18; TEMP 36.7; O2SAT 92
--- NOTE | 2020-08-28 14:01 | WPDGIPROGNO ---
Progress Note: A&P Assessment and Plan (1) Dysphagia: Code(s): R13.10 - Dysphagia, unspecified Status: Acute Assessment and Plan: probably from CVA, also COVID infection peg placed yesterday, tolerating feeding (2) Esophagitis: Code(s): K20.90 - Esophagitis, unspecified without bleeding Status: Acute Assessment and Plan: found yesterday, continue with protonix daily (3) Stroke: Code(s): I63.9 - Cerebral infarction, unspecified Status: Acute Assessment and Plan: mental status unchanged longwall foreman feeding (4) Pneumonia due to COVID-19 virus: Code(s): U07.1 - COVID-19; J12.82 - Pneumonia due to coronavirus disease 2019 Status: Resolved Assessment and Plan: received treatment and not longer in isolation (5) Diabetes mellitus: Qualifiers: Diabetes mellitus type: type 2 Diabetes mellitus assisted insulin use: without longwall foreman use Diabetes mellitus complication status: without complication Qualified Code(s): E11.9 - Type 2 diabetes mellitus without complications Code(s): E11.9 - Type 2 diabetes mellitus without complications Status: Chronic (6) Acute encephalopathy: Code(s): G93.40 - Encephalopathy, unspecified Status: Acute Assessment and Plan: unchanged Subjective Date/time seen: 08/28/20 14:01 Interval history: peg placed endoscopically yesterday, tolerating at 60 ml/h, no new issues per RN report Review of Systems Review of Systems: All systems reviewed & are unremarkable except as noted in HPI and below Exam Const: General: comfortable and no acute distress HENMT: General nose exam: Normal nares present Eyes: General: appearance normal, both eyes and all related structures Neck: Neck: supple Resp: Auscultation: no crackles and diminished lung sounds Cardio: Rate: regular rate GI: Inspection: non-distended GI Palp: Yes Soft to palpation and No Guarding due to palpation present (GI) Auscultation: normal bowel sounds Other: g-tube in place, site looks ok Neuro: Other: awake, answer simple questions Extrem: General: no edema Objective Data Vital Signs Vital Signs: Vital Signs - 24 hr 08/27/20 21:55 08/28/20 06:00 Temperature 97.5 F L 97.7 F Pulse Rate 93 85 Respiratory Rate 18 16 Blood Pressure 130/55 L 148/68 H Pulse Oximetry 95 95 Intake/Output Intake/Output: Intake & Output 08/25/20 08/26/20 08/27/20 08/28/20 23:59 23:59 23:59 23:59 Intake Total 2504 2810 1300 Output Total 3 Balance 2504 2807 1300 Meds/Results Medications: Active Medications Generic Name Dose Route Start Last Admin Trade Name Freq PRN Reason Stop Dose Admin Aspirin 325 mg 08/20/20 21:25 08/28/20 09:03 Aspirin 325 Mg Tablet FEED TUBE 325 mg DAILY@0800 [facility] Administration Dextrose 12.5 gm 08/16/20 17:17 Dextrose 50% 25 Gm/50 Ml Syringe IV PUSH PRN PRN Hypoglycemia Protocol Enoxaparin Sodium 40 mg 08/17/20 21:00 08/28/20 09:03 Enoxaparin 40 Mg/0.4 Ml Syringe SUB-Q 40 mg Q12HR NAZARIO Administration Glucagon 1 mg 08/16/20 17:17 Glucagon For Inj 1 Mg Vial IM PRN PRN Hypoglycemia Protocol Glucose 15 gm 08/16/20 17:17 Glucose Oral Gel 15 Gm Of Glucse In 37.5 Gm Tube PO PRN PRN Hypoglycemia Protocol Hydralazine HCl 25 mg 08/21/20 16:35 08/22/20 06:06 Hydralazine Hcl 25 Mg Tablet PO 25 mg Q6H PRN Administration Hypertension Dextrose 1,000 mls @ 100 mls/hr 08/16/20 17:17 Dextrose 5% 1,000 Ml IVPB PRN PRN Hypoglycemia Protocol Insulin Aspart 3 - 6 units 08/19/20 00:00 08/28/20 12:07 Insulin Aspart (*Bkc) 100 Units/Ml SUB-Q Not Given Q6HR [facility] Protocol Insulin Aspart 6 units 08/25/20 12:00 08/28/20 12:14 Insulin Aspart (*Bkc) 100 Units/Ml 0.1 units/kg (6 units) 6 units SUB-Q Administration Q6HR [facility] Insulin Glargine 25 units 02
--- NOTE | 2020-08-28 18:35 | PM.IMPN ---
Progress Note: A&P Assessment and Plan (1) Acute encephalopathy: Code(s): G93.40 - Encephalopathy, unspecified Status: Acute Assessment and Plan: Likely secondary to Hypernatremia Free water flushes 150 ml q 6 hours. Supportive care (2) Stroke: Code(s): I63.9 - Cerebral infarction, unspecified Status: Acute Assessment and Plan: Unchanged Supportive care (3) Dysphagia: Code(s): R13.10 - Dysphagia, unspecified Status: Acute Assessment and Plan: S/p feeding tube placement (4) Hypernatremia: Code(s): E87.0 - Hyperosmolality and hypernatremia Status: Acute Assessment and Plan: Normalizing Daily BMP (5) Thrombocytosis: Code(s): D47.3 - Essential (hemorrhagic) thrombocythemia Status: Acute Assessment and Plan: Likely to be reactive Continue to monitor (6) Leukocytosis: Qualifiers: Leukocytosis type: unspecified Qualified Code(s): D72.829 - Elevated white blood cell count, unspecified Code(s): D72.829 - Elevated white blood cell count, unspecified Status: Acute Assessment and Plan: Trending down CBC in am (7) Acute respiratory failure with hypoxia: Code(s): J96.01 - Acute respiratory failure with hypoxia Status: Resolved Assessment and Plan: Resolved Off of supplemental O2. Subjective Date/time seen: 08/28/20 18:35 Patient is moaning and groaning. Review of Systems Review of Systems: ROS unobtainable: Yes unobtainable due to medical condition Exam Narrative: Exam Narrative: Lying in bed Const: General: ill appearing and other (Delirious.) Nutritional Appearance: thin Orientation/consciousness: Other orientation findings (Delirious) HENMT: Head: normal to inspection and normocephalic General nose exam: Normal external nose present Face and sinus: normal facial exam Eyes: Pupils: Equal, round and reactive pupils present EOM: EOMs intact bilaterally Neck: Neck: no lymphadenopathy, supple and no JVD Resp: Effort & Inspection: normal respiratory effort Auscultation: clear to auscultation bilaterally Cardio: Jugular venous distension: no JVD Rate: regular rate Rhythm: regular rhythm GI: GI Palp: Yes Soft to palpation and Yes No hepatosplenomegaly present Skin: Wounds: no wounds (Feeding tube in place) Neuro: Cranial nerves: Yes CN's II-XII intact bilaterally and Yes Equal, round and reactive pupils present Cognition (Neuro): abnormal cognition (Delirious.) Motor exam (neuro): 5/5 motor strength present throughout Extrem: General: no pedal edema Objective Data Vital Signs Vital Signs: Vital Signs - 24 hr 08/27/20 21:55 08/28/20 06:00 08/28/20 14:00 Temperature 97.5 F L 97.7 F 98.1 F Pulse Rate 93 85 81 Respiratory Rate 18 16 18 Blood Pressure 130/55 L 148/68 H 156/69 H Pulse Oximetry 95 95 92 Intake/Output Intake/Output: Intake & Output 08/25/20 08/26/20 08/27/20 08/28/20 23:59 23:59 23:59 23:59 Intake Total 2504 2810 1300 Output Total 3 Balance 2504 2807 1300 Meds/Results Medications: Active Medications Generic Name Dose Route Start Last Admin Trade Name Freq PRN Reason Stop Dose Admin Aspirin 325 mg 08/20/20 21:25 08/28/20 09:03 Aspirin 325 Mg Tablet FEED TUBE 325 mg DAILY@0800 [facility] Administration Dextrose 12.5 gm 08/16/20 17:17 Dextrose 50% 25 Gm/50 Ml Syringe IV PUSH PRN PRN Hypoglycemia Protocol Enoxaparin Sodium 40 mg 08/17/20 21:00 08/28/20 09:03 Enoxaparin 40 Mg/0.4 Ml Syringe SUB-Q 40 mg Q12HR [facility] Administration Glucagon 1 mg 08/16/20 17:17 Glucagon For Inj 1 Mg Vial IM PRN PRN Hypoglycemia Protocol Glucose 15 gm 08/16/20 17:17 Glucose Oral Gel 15 Gm Of Glucse In 37.5 Gm Tube PO PRN PRN Hypoglycemia Protocol Hydralazine HCl 25 mg 08/21/20 16:35 08/22/20 06:06 Hydralazine Hcl 25 Mg Tablet PO 25 mg Q6H PRN
[2020-08-28] MEDS: INSULIN ASPART (*BKC) 100 UNITS/ML SUB-Q (18:49)
[2020-08-28 18:54] LABS: Glucose Point of Care 230 (65-105)
[2020-08-28 21:30] VITALS: BP 148/79; PULSE 103; RESP 22; TEMP 36.5; O2SAT 94
[2020-08-29] MEDS: INSULIN GLARGINE (*BKC) 100 UNITS/ML 25 UNITS SUB-Q
[2020-08-29 00:08] LABS: Glucose Point of Care 199 (65-105)
[2020-08-29] MEDS: INSULIN ASPART (*BKC) 100 UNITS/ML 6 UNITS SUB-Q ×3 (05:33→18:49)
[2020-08-29] MEDS: INSULIN ASPART (*BKC) 100 UNITS/ML SUB-Q (05:34)
[2020-08-29 05:37] VITALS: BP 152/77; PULSE 70; RESP 22; TEMP 36.2; O2SAT 93
[2020-08-29 05:42] LABS: Glucose Point of Care 229 (65-105)
[2020-08-29 06:31] LABS: Anion Gap 5 mmol/L (8-16); Blood Urea Nitrogen 53 mg/dL (7-17); Calcium 8.9 mg/dL (8.4-10.2); Carbon Dioxide 28 mmol/L (22-30); Chloride 114 mmol/L (98-107); Estimated CRCL calculation 22 ml/min; Estimated Glomerular Filt Rate 33; Glucose 238 mg/dL (65-105); Potassium 4.6 mmol/L (3.4-5.0); Sodium 147 mmol/L (137-145)
[2020-08-29 08:07] VITALS: BP 142/74; PULSE 93; RESP 24; TEMP 36.4; O2SAT 95
--- NOTE | 2020-08-29 08:17 | PC.NURSE ---
Went to GI lab for peg replacment. 0800
[2020-08-29 08:40] VITALS: BP 130/44; PULSE 92; RESP 26; O2SAT 94
--- NOTE | 2020-08-29 09:00 | P.OP_ITS ---
Procedure Note - Detailed Date of procedure: 08/29/20 Pre-op diagnosis: Sepsis, dehydration dysphagia, patient pulled out G-tube Post-op diagnosis: same Procedure performed: placement of new G-tube at bedside Description of procedure: We used a 20 Fr g-tube and lubricated the tip with lubricant. Then guided the lubricated tip through the previous stoma and into the stomach. Then I inflated the balloon with sterile water ~ 6ml, then tension was felt from the balloon contacting the stomach wall. We ordered STAT gastrografin KUB and it was confirmed that is in right position. Anesthesia: none Surgeon: Fabio Monreal MD Condition: stable Disposition: floor Findings: ok to resume tube feeding per foundation engineer recommendation
--- NOTE | 2020-08-29 09:45 | SUR.PREOP ---
PT ARRIVED VIA STRETCHER INTO PRE OP RM 2 CONSENTED FOR REPLACEMENT OF G-TUBE, VS TAKEN PT QUICKLY ASSESSED, TIME OUT PERFORMED, DR BHATT PLACED G-TUBE PER CLEAN/CONTAMINATED PROCEDURE, NO ANESTHESIA NEEDED, ORDERS FOR GASTROGRAFIN RADIOLOGY NOTIFIED AND COMPLETED TEST, REPORT RECEIVED BY DR BHATT G-TUBE IN PLACE, DRAIN SPONGE & BINDER APPLIED, REPORT GIVEN TO RN, PT RETURNED TO HER ROOM, DOCUMENTATION COMPLETED
[2020-08-29] MEDS: PANTOPRAZOLE SODIUM IV 40 MG VIAL IV PUSH (10:01)
[2020-08-29] MEDS: ROSUVASTATIN 10 MG TABLET 20 MG FEED TUBE (10:01)
[2020-08-29] MEDS: ASPIRIN 325 MG TABLET FEED TUBE (10:02)
[2020-08-29] MEDS: ENOXAPARIN 40 MG/0.4 ML SYRINGE SUB-Q ×2 (10:02→20:39)
--- NOTE | 2020-08-29 12:32 | PC.NURSE ---
Updated on getting new peg tube placed.
[2020-08-29 12:55] LABS: Glucose Point of Care 124 (65-105)
[2020-08-29 14:00] VITALS: BP 143/63; PULSE 105; RESP 24; TEMP 36.3; O2SAT 90
[2020-08-29 18:41] LABS: Glucose Point of Care 124 (65-105)
[2020-08-29 22:00] VITALS: BP 126/74; PULSE 102; RESP 22; TEMP 37.2; O2SAT 97
[2020-08-30] VITALS (9 sets, daily range): BP systolic 127–149; BP diastolic 51–87; PULSE 88–102; RESP 17–31; TEMP 36.1–36.9; O2SAT 91–100
[2020-08-30] MEDS: INSULIN GLARGINE (*BKC) 100 UNITS/ML 25 UNITS SUB-Q ×2 (00:26→21:13)
[2020-08-30 00:58] LABS: Glucose Point of Care 170 (65-105)
[2020-08-30 06:05] LABS: Glucose Point of Care 160 (65-105)
[2020-08-30 06:27] LABS: Basophils Percent Auto 0.1 % (0.2-1.2); Eosinophils Percent Auto 0.1 % (0-4.4); Hematocrit 29.7 % (37.0-47.0); Hemoglobin 8.9 g/dL (12.0-15.0); Immature Granulocyte Absolute 0.06 K/mm3 (0.00-0.031); Immature Granulocyte Percent A 0.4 % (0-0.5); Immature Platelet Fraction Pct 6.5 % (0.9-11.2); Lymphocytes Absolute Auto 1.07 K/mm3 (0.9-3.2); Lymphocytes Percent Auto 7.4 % (18.3-44.2); Mean Corpuscular Hemoglobin 28.8 pg (26-34); Mean Corpuscular Volume 96.1 fl (80-100); Mean Platelet Volume 12.8 fl (7.4-10.4); Monocytes Absolute Auto 0.4 K/mm3 (0.1-0.6); Monocytes Percent Auto 2.8 % (2.6-8.5); Neutrophils Absolute Auto 12.8 K/mm3 (1.3-6.7); Neutrophils Percent Auto 89.2 % (45.5-73.1); Platelet Count Result 181 k/mm3 (150-375); Red Blood Count 3.09 M/mm3 (4.2-5.4); White Blood Count 14.4 K/mm3 (4.5-10.0)
[2020-08-30 06:40] LABS: Anion Gap 12 mmol/L (8-16); Blood Urea Nitrogen 71 mg/dL (7-17); Carbon Dioxide 22 mmol/L (22-30); Chloride 115 mmol/L (98-107); Estimated CRCL calculation 15 ml/min; Estimated Glomerular Filt Rate 20; Glucose 170 mg/dL (65-105); Potassium 5.5 mmol/L (3.4-5.0); Sodium 149 mmol/L (137-145)
[2020-08-30 06:56] LABS: Platelet Estimate Adequate (Adequate)
[2020-08-30 06:57] LABS: Anisocytosis 1+ (NORMAL); Macrocytosis 1+ (NORMAL); Microcytosis 1+ (NORMAL)
--- NOTE | 2020-08-30 07:46 | WPDANESPN ---
Anes - Prog Note Post-Op Date/Time: 08/30/20 07:46 Cardiovascular status: normal Respiratory status: normal Airway patency: baseline Mental status: baseline Post-Op hydration status: normal Vital Signs: Last Vital Signs Temp 36.1 C L 08/30/20 06:00 Pulse 99 08/30/20 06:00 Resp 20 08/30/20 06:00 BP 132/52 L 08/30/20 06:00 Pulse Ox 94 08/30/20 06:00 Pain Score (VAS): 0 I/O: Intake & Output 08/29/20 08/29/20 08/30/20 15:59 23:59 07:59 Intake Total 0 0 Output Total 100 Balance -100 0 0 Laboratory Tests 08/30/20 06:09 08/30/20 06:09 08/29/20 08/29/20 08/30/20 12:42 18:35 00:25 WBC RBC Hgb Hct MCV MCH MCHC RDW Plt Count MPV Immature Gran % (Auto) Neut % (Auto) Lymph % (Auto) [place] % (Auto) Eos % (Auto) Baso % (Auto) Lymph # (Auto) [place] # (Auto) Eos # (Auto) Baso # (Auto) Abs Immat Gran (auto) Absolute Neuts (auto) Absolute Nucleated RBC Nucleated RBC % Platelet Estimate % Immature Plt Fraction Anisocytosis Microcytosis Macrocytosis Sodium Potassium Chloride Carbon Dioxide Anion Gap BUN Creatinine Estim Creat Clear Calc Estimated GFR Glucose POC Capillary Glucose 124 H 124 H 170 H Calcium 08/30/20 08/30/20 08/30/20 05:30 06:09 06:09 WBC 14.4 H RBC 3.09 L Hgb 8.9 L Hct 29.7 L MCV 96.1 MCH 28.8 MCHC 30.0 L RDW 16.0 H Plt Count 181 MPV 12.8 H Immature Gran % (Auto) 0.4 Neut % (Auto) 89.2 H Lymph % (Auto) 7.4 L [place] % (Auto) 2.8 Eos % (Auto) 0.1 Baso % (Auto) 0.1 L Lymph # (Auto) 1.07 [place] # (Auto) 0.4 Eos # (Auto) 0.0 Baso # (Auto) 0.0 Abs Immat Gran (auto) 0.06 H Absolute Neuts (auto) 12.8 H Absolute Nucleated RBC 0.0 Nucleated RBC % 0.0 Platelet Estimate Adequate % Immature Plt Fraction 6.5 Anisocytosis 1+ Microcytosis 1+ Macrocytosis 1+ Sodium 149 H Potassium 5.5 H Chloride 115 H Carbon Dioxide 22 Anion Gap 12 BUN 71 H D Creatinine 2.30 H Estim Creat Clear Calc 15 Estimated GFR 20 L Glucose 170 H POC Capillary Glucose 160 H Calcium 9.0 Post-procedural complaints: none Patient Feedback: Patient satisfied with anesthetic care.
[2020-08-30] MEDS: PANTOPRAZOLE SODIUM IV 40 MG VIAL IV PUSH (09:54)
--- NOTE | 2020-08-30 11:02 | PCPTNOTE ---
The patient treatment was not able to be completed due to patient out of room for GI procedure. Will plan to continue treatment per plan of care.
[2020-08-30 11:10] LABS: Glucose Point of Care 135 (65-105)
--- NOTE | 2020-08-30 11:13 | WPDANESEFPP ---
Anes - Eval Final PreProcedure Day of Procedure 08/30/20 11:13 Patient weight: normal Heart: regular rate and rhythm Lungs: clear to auscultation Airway: Mallampati scale class II Neurological: confused Last oral intake: >/= 8 hours ASA classification: IV Emergent: no Anesthetic plan: proceed Anesthesia type and monitoring: general GIVS and standard monitoring Informed Consent: The patient's anesthetic plan and its attendant risks and benefits were discussed with the patient/family/POA. Questions were solicited and answers provided to the satisfaction of the patient/family/POA.
[2020-08-30] MEDS: LACTATED RINGERS 1,000 ML 150 ML IV CONT (11:30)
--- NOTE | 2020-08-30 12:48 | PM.DS ---
DS: Summary Time Spent with Patient Time attestation: Total time spent providing and/or coordinating discharge services: DS: Data Data Completed and Pending Labs on day of discharge: Labs from last 24 hours 08/30/20 08/30/20 08/30/20 11:08 06:09 06:09 WBC 14.4 H RBC 3.09 L Hgb 8.9 L Hct 29.7 L MCV 96.1 MCH 28.8 MCHC 30.0 L RDW 16.0 H Plt Count 181 MPV 12.8 H Immature Gran % (Auto) 0.4 Neut % (Auto) 89.2 H Lymph % (Auto) 7.4 L [place] % (Auto) 2.8 Eos % (Auto) 0.1 Baso % (Auto) 0.1 L Lymph # (Auto) 1.07 [place] # (Auto) 0.4 Eos # (Auto) 0.0 Baso # (Auto) 0.0 Abs Immat Gran (auto) 0.06 H Absolute Neuts (auto) 12.8 H Absolute Nucleated RBC 0.0 Nucleated RBC % 0.0 Platelet Estimate Adequate % Immature Plt Fraction 6.5 Anisocytosis 1+ Microcytosis 1+ Macrocytosis 1+ Sodium 149 H Potassium 5.5 H Chloride 115 H Carbon Dioxide 22 Anion Gap 12 BUN 71 H D Creatinine 2.30 H Estim Creat Clear Calc 15 Estimated GFR 20 L Glucose 170 H POC Capillary Glucose 135 H Calcium 9.0 08/30/20 08/30/20 08/29/20 05:30 00:25 18:35 WBC RBC Hgb Hct MCV MCH MCHC RDW Plt Count MPV Immature Gran % (Auto) Neut % (Auto) Lymph % (Auto) [place] % (Auto) Eos % (Auto) Baso % (Auto) Lymph # (Auto) [place] # (Auto) Eos # (Auto) Baso # (Auto) Abs Immat Gran (auto) Absolute Neuts (auto) Absolute Nucleated RBC Nucleated RBC % Platelet Estimate % Immature Plt Fraction Anisocytosis Microcytosis Macrocytosis Sodium Potassium Chloride Carbon Dioxide Anion Gap BUN Creatinine Estim Creat Clear Calc Estimated GFR Glucose POC Capillary Glucose 160 H 170 H 124 H Calcium 08/29/20 12:42 WBC RBC Hgb Hct MCV MCH MCHC RDW Plt Count MPV Immature Gran % (Auto) Neut % (Auto) Lymph % (Auto) [place] % (Auto) Eos % (Auto) Baso % (Auto) Lymph # (Auto) [place] # (Auto) Eos # (Auto) Baso # (Auto) Abs Immat Gran (auto) Absolute Neuts (auto) Absolute Nucleated RBC Nucleated RBC % Platelet Estimate % Immature Plt Fraction Anisocytosis Microcytosis Macrocytosis Sodium Potassium Chloride Carbon Dioxide Anion Gap BUN Creatinine Estim Creat Clear Calc Estimated GFR Glucose POC Capillary Glucose 124 H Calcium Discharge Plan Discharge Attending physician on discharge: Faina Ford V. Consulting providers: Obdulio Valdez ; Fabio Monreal Discharging Clinician: Faina Ford V. Patient Disposition: SNF Activity: as tolerated Diet: NPO Patient Instructions: Pain Management (GEN), Pneumonia (GEN), COVID-19 (Coronavirus Disease 2019) (GEN) Stand Alone Forms: General Discharge Information Follow-up/Referrals: Rustam,MD Luisito [Primary Care Provider] - 2 Weeks Discharge Medications: New Lantus U-100 Insulin 100 unit/mL Solution 25 unit subcut HS Qty: 10 RF: 0 insulin aspart U-100 [Novolog U-100 Insulin aspart] 100 unit/mL Solution 3 - 6 unit subcut Q6HR Qty: 10 RF: 0 hydralazine 25 mg Tablet 25 mg PO Q6H PRN (Reason: Hypertension) Qty: 30 RF: 0 [place] Antifungal (micon) 2 % Ointment 1 applic topical Q12HR 15 Days RF: 0 aspirin 325 mg Tablet 325 mg feeding tube DAILY@0800 99 Days Qty: 99 RF: 0 Continued amlodipine 10 mg tablet 10 mg PO DAILY RF: 0 rosuvastatin 20 mg tablet 20 mg PO DAILY RF: 0 Date of admission: 08/16/20 10:11 Primary Care Provider: Rustam,Luisito Admitting Provider: Delta Mcgregor Attending physician on admission: Juan Antonio Mann Condition: Stable Quality VTE Prophylaxis VTE prophylaxis: pharmacologic ordered
--- NOTE | 2020-08-30 13:50 | PCOTNOTE ---
Attempted to see patient this PM for skilled OT session. Patient absent from room upon entry. Per [facility], patient was taken for surgery. Will continue per Plan of Care tomorrow.
--- NOTE | 2020-08-30 14:15 | PM.CNGS ---
Assessment and Plan Assessment and plan (1) Stroke: Code(s): I63.9 - Cerebral infarction, unspecified Status: Acute Assessment and Plan: supportive care, pt seen in endoscopy and still c residual anesthetic (2) Pneumonia due to COVID-19 virus: Code(s): U07.1 - COVID-19; J12.82 - Pneumonia due to coronavirus disease 2019 Status: Resolved Assessment and Plan: supportive care (3) Dysphagia: Code(s): R13.10 - Dysphagia, unspecified Status: Acute Assessment and Plan: will need feeding access, d/w (POA) and decision to proceed c open placement History of Present Illness Consult details Consult date: 08/30/20 Reason for consult: other (feeding tube) Requesting physician: Fabio Monreal MD Narrative: Pt is a 85 y/o F s/p CVA and COVID now needing feeding access. Pt has had long hospital course and MRI brain shows multiple infarcts. Pt had previous PEG tube placed but that became recently dislodged. Pt had reattempt today but unsuccessful. Surgery now consulted for open placement. Of note, all history is obtained via chart. Review of Systems Review of Systems: ROS unobtainable: Yes unobtainable due to medical condition and unobtainable due to mental status PMFSH Past Medical History Medical History Dysphagia Esophagitis Stroke Social History Social History Smoking status: Never smoker Alcohol intake: never Substance use: never Gender identity (if verbalized by the patient): Female Spiritual care concerns: No Comments unable to obtain surgical or family history and not documented via chart Meds Home Medications and Allergies Home Medications Medication Instructions Recorded Confirmed Type amlodipine 10 mg PO DAILY 08/15/20 08/15/20 History rosuvastatin 20 mg PO DAILY 08/15/20 08/15/20 History hydralazine 25 mg PO Q6H PRN #30 tablet 08/30/20 Rx insulin aspart U-100 [Novolog 3 - 6 unit SUBCUT Q6HR #10 ml 08/30/20 Rx U-100 Insulin aspart] insulin glargine [Lantus U-100 25 unit SUBCUT HS #10 ml 08/30/20 Rx Insulin] miconazole nitrate [Aloe [place] 1 applic TOPICAL Q12HR 15 Days g 08/30/20 Rx Antifungal (micon)] Allergies Allergy/AdvReac Type Severity Reaction Status Date / Time Penicillins Allergy Hives Verified 08/30/20 10:59 Sulfa (Sulfonamide Allergy Hives Verified 08/30/20 10:59 Antibiotics) Vital Signs Vital Signs - 24 hr 08/29/20 22:00 08/30/20 06:00 08/30/20 08:00 Temperature 37.2 C 36.1 C L Pulse Rate 102 H 99 102 H Respiratory Rate 22 H 20 17 Blood Pressure 126/74 132/52 L Pulse Oximetry 97 94 92 08/30/20 11:02 08/30/20 13:24 08/30/20 13:34 Temperature 36.7 C Pulse Rate 102 H 95 92 Respiratory Rate 17 31 H 28 H Blood Pressure 132/67 149/51 H 127/87 Pulse Oximetry 92 91 92 08/30/20 13:44 Temperature Pulse Rate 93 Respiratory Rate 28 H Blood Pressure 128/70 Pulse Oximetry 95 Exam Const: General: no acute distress, ill appearing and patient obtunded Nutritional Appearance: average body habitus Orientation/consciousness: patient obtunded Limitations: altered mental status HENMT: Head: normal to inspection, normocephalic and atraumatic Ears: external ears normal General nose exam: Normal external nose present Face and sinus: normal facial exam Mouth: Yes Normal oral and palatal mucosa present and Yes moist mucous membranes Eyes: General: appearance normal, both eyes and all related structures Neck: Neck: normal visual inspection and no lymphadenopathy Chest: Chest palpation & inspection: normal inspection of the chest Resp: Effort & Inspection: normal respiratory effort Auscultation: diminished lung sounds Cardio: Jugular venous distension: no JVD Rate: regular rate Rhythm: regular rhythm GI: Inspection: normal to inspection, non-distended
--- NOTE | 2020-08-30 14:26 | PC.NURSE ---
Returned from GI Lab. Report received from [ ]. NO PEG WAS PLACED SURGERY HERE TO SEE HER FOR TOMORROW.
[2020-08-30] MEDS: ENOXAPARIN 40 MG/0.4 ML SYRINGE SUB-Q ×2 (15:39→21:13)
--- NOTE | 2020-08-30 16:42 | PM.IMPN ---
Progress Note: A&P Assessment and Plan (1) Dysphagia: Code(s): R13.10 - Dysphagia, unspecified Status: Acute Assessment and Plan: S/p feeding tube placement however pulled it off Surgery consulted. Appreciate surgery note Started D10 (2) Pneumonia due to COVID-19 virus: Code(s): U07.1 - COVID-19; J12.82 - Pneumonia due to coronavirus disease 2019 Status: Resolved Assessment and Plan: Resolved. (3) Hypernatremia: Code(s): E87.0 - Hyperosmolality and hypernatremia Status: Acute Assessment and Plan: Was trending down now is back up Started D10 Patient was not able to get her free water flushes Repeat in am. (4) Acute encephalopathy: Code(s): G93.40 - Encephalopathy, unspecified Status: Acute Assessment and Plan: Waxes and wanes. Supportive care. (5) Acute respiratory failure with hypoxia: Code(s): J96.01 - Acute respiratory failure with hypoxia Status: Resolved Assessment and Plan: Resolved. Subjective Date/time seen: 08/30/20 16:42 States that feels fine Review of Systems Review of Systems: ROS unobtainable: Yes unobtainable due to medical condition (Encephalopathy.) Exam Narrative: Exam Narrative: Lying in bed. Const: General: comfortable, no acute distress and other (Chronically ill looking.) Nutritional Appearance: thin Orientation/consciousness: oriented to person HENMT: Head: normal to inspection and normocephalic Ears: hearing grossly normal bilaterally General nose exam: Normal external nose present Face and sinus: normal facial exam Eyes: General: appearance normal, both eyes and all related structures Pupils: Equal, round and reactive pupils present EOM: EOMs intact bilaterally Neck: Neck: no lymphadenopathy, supple and no JVD Resp: Effort & Inspection: normal respiratory effort Auscultation: clear to auscultation bilaterally Cardio: Jugular venous distension: no JVD Rate: regular rate Rhythm: regular rhythm GI: GI Palp: Yes Soft to palpation and Yes No hepatosplenomegaly present Skin: Wounds: no wounds (Feeding tube stoma) Neuro: General: oriented to person and CN's II-XI intact bilaterally Cranial nerves: Yes CN's II-XII intact bilaterally and Yes Equal, round and reactive pupils present Cognition (Neuro): abnormal cognition Gait exam (Neuro): Unable to assess gait Motor exam (neuro): 5/5 motor strength present throughout Extrem: General: no pedal edema Objective Data Vital Signs Vital Signs: Vital Signs - 24 hr 08/29/20 22:00 08/30/20 06:00 08/30/20 08:00 Temperature 99 F 97 F L Pulse Rate 102 H 99 102 H Respiratory Rate 22 H 20 17 Blood Pressure 126/74 132/52 L Pulse Oximetry 97 94 92 08/30/20 11:02 08/30/20 13:24 08/30/20 13:34 Temperature 98.1 F Pulse Rate 102 H 95 92 Respiratory Rate 17 31 H 28 H Blood Pressure 132/67 149/51 H 127/87 Pulse Oximetry 92 91 92 08/30/20 13:44 08/30/20 14:00 Temperature 97.6 F Pulse Rate 93 95 Respiratory Rate 28 H 20 Blood Pressure 128/70 129/52 L Pulse Oximetry 95 100 Intake/Output Intake/Output: Intake & Output 08/27/20 08/28/20 08/29/20 08/30/20 23:59 23:59 23:59 23:59 Intake Total 1300 4437 150 Output Total 100 100 Balance 1300 4337 50 Meds/Results Medications: Active Medications Generic Name Dose Route Start Last Admin Trade Name Freq PRN Reason Stop Dose Admin Aspirin 325 mg 08/20/20 21:25 08/30/20 15:39 Aspirin 325 Mg Tablet FEED TUBE Not Given DAILY@0800 NAZARIO Dextrose 12.5 gm 08/16/20 17:17 Dextrose 50% 25 Gm/50 Ml Syringe IV PUSH PRN PRN Hypoglycemia Protocol Enoxaparin Sodium 40 mg 08/17/20 21:00 08/30/20 15:39 Enoxaparin 40 Mg/0.4 Ml Syringe SUB-Q 40 mg Q12HR ANZARIO Administration Glucagon 1 mg 08/16/20 17:17 Glucagon For Inj 1 Mg Vial IM PRN PRN Hypoglycemia Protocol Glucose 15 gm 08/16/20 17:17 Glucose Oral Ge
[2020-08-30 18:22] LABS: Glucose Point of Care 142 (65-105)
[2020-08-30] MEDS: DEXTROSE 10% 1,000 ML 75 ML IV CONT (18:23)
[2020-08-30 22:27] LABS: Glucose Point of Care 201 (65-105)
[2020-08-31] VITALS (16 sets, daily range): BP systolic 108–152; BP diastolic 48–88; PULSE 85–98; RESP 16–30; TEMP 36.4–36.8; O2SAT 90–99
[2020-08-31] MEDS: INSULIN ASPART (*BKC) 100 UNITS/ML 6 UNITS SUB-Q ×2 (00:35→06:00)
[2020-08-31] MEDS: INSULIN ASPART (*BKC) 100 UNITS/ML SUB-Q (00:37)
[2020-08-31 00:48] LABS: Glucose Point of Care 264 (65-105)
[2020-08-31 06:42] LABS: Glucose Point of Care 189 (65-105)
[2020-08-31] MEDS: DEXTROSE 10% 1,000 ML 75 ML IV CONT (07:14)
[2020-08-31 08:13] LABS: Glucose Point of Care 146 (65-105)
[2020-08-31] MEDS: PANTOPRAZOLE SODIUM IV 40 MG VIAL IV PUSH (08:42)
--- NOTE | 2020-08-31 12:10 | PCNFU ---
Nutrition Follow-Up Complete: Swallowing Difficulties as related to possible dysphagia as evidenced by NPO Goal: Meet estimated nutritional needs Progressing towards goal. Pt current nutrition is NPO. Nutrition recommendation: Glucerna 1.2 at 60 ml/hr Last recorded weight is 59.7 kg, no new weight to report. Bowel Motility:+Bm reported 08/30 Labs Reviewed:no new labs to report. Meds Noted:Lantus, Protonix, Dextrose at 75 ml/hr, Lantus, Novolog. Additional Notes: Nutrition follow up today. Spoke with nursing today, patient is NPO for G Tube placement today. MD reports previous PEG tube placed but that became recently dislodged. Plans for tube feedings to be restarted with Glucerna 1.2 at 60 ml/hr providing patient with 1584 kcals and 79 gms protein. Meeting 100% of patients caloric needs. Monitoring: weight, labs, enteral feedings every Thursday and Thursday.
--- NOTE | 2020-08-31 12:24 | WPDANESEFPP ---
Anes - Eval Final PreProcedure Day of Procedure 08/31/20 12:24 Patient weight: normal Heart: regular rate and rhythm Lungs: clear to auscultation Airway: Mallampati scale class II Neurological: confused Last oral intake: >/= 8 hours ASA classification: IV Emergent: no Anesthetic plan: proceed Anesthesia type and monitoring: general GIVS and standard monitoring Informed Consent: The patient's anesthetic plan and its attendant risks and benefits were discussed with the patient/family/POA. Questions were solicited and answers provided to the satisfaction of the patient/family/POA.
[2020-08-31] MEDS: LACTATED RINGERS 1,000 ML 30 ML IV CONT (12:25)
[2020-08-31 12:53] LABS: Glucose Point of Care 58 (65-105)
--- NOTE | 2020-08-31 12:55 | P.PNAN_ITS ---
Anes - Eval Pre Procedure Procedure: Open g tube placement Operation Date: 08/27/20 13:00 Proposed Procedures p Percutaneous Endoscopic Gastrostomy - Fabio Monreal MD Operation Date: 08/29/20 14:30 Proposed Procedures p Removal & Replacement of G-Tube - Fabio Monreal MD Operation Date: 08/30/20 12:30 Proposed Procedures p Removal & Replacement of G-Tube - Fabio Monreal MD Operation Date: 08/31/20 13:00 Proposed Procedures p Open Gastrostomy Tube Placement - Kari Holt MD Date/Time: 08/31/20 12:55 Surgeon: rainer Pre Op Diagnosis: Sepsis, dehydration Patient Data Age: 85 Gender: F Height: 1.63 m Weight: 59.7 kg Last Vital Signs Temp 36.8 C 08/31/20 12:23 Pulse 91 08/31/20 12:23 Resp 16 08/31/20 12:23 BP 118/54 L 08/31/20 12:23 Pulse Ox 94 08/31/20 12:23 Allergies Allergy/AdvReac Type Severity Reaction Status Date / Time Penicillins Allergy Hives Verified 08/30/20 10:59 Sulfa (Sulfonamide Allergy Hives Verified 08/30/20 10:59 Antibiotics) Home Medications Medication Instructions Recorded Confirmed Type amlodipine 10 mg PO DAILY 08/15/20 08/15/20 History rosuvastatin 20 mg PO DAILY 08/15/20 08/15/20 History hydralazine 25 mg PO Q6H PRN #30 tablet 08/30/20 Rx insulin aspart U-100 [Novolog 3 - 6 unit SUBCUT Q6HR #10 ml 08/30/20 Rx U-100 Insulin aspart] insulin glargine [Lantus U-100 25 unit SUBCUT HS #10 ml 08/30/20 Rx Insulin] miconazole nitrate [Aloe [place] 1 applic TOPICAL Q12HR 15 Days g 08/30/20 Rx Antifungal (micon)] Laboratory Tests 08/30/20 08/30/20 08/31/20 18:20 21:12 00:35 POC Capillary Glucose 142 mg/dl H mg/dl 201 mg/dl H mg/dl 264 mg/dl H mg/dl (65-105) (65-105) (65-105) 08/31/20 08/31/20 08/31/20 05:41 08:04 12:51 POC Capillary Glucose 189 mg/dl H mg/dl 146 mg/dl H mg/dl 58 mg/dl L* mg/dl (65-105) (65-105) (65-105) Patient hx anesthesia problems: none Family hx anesthesia problems: none PMFSH Past Medical History Medical History Dysphagia Esophagitis Stroke Social History Social History Smoking status: Never smoker Alcohol intake: never Substance use: never Gender identity (if verbalized by the patient): Female Spiritual care concerns: No Exam Day of Procedure 08/31/20 12:55
--- NOTE | 2020-08-31 12:59 | WPDHPUPDATE1 ---
History and Physical Update Update Date/Time: 08/31/20 12:59 History and Physical has been reviewed, including an updated exam of the patient. There are NO changes in the patient's condition. Risks, benefits, and alternatives have been discussed and questions answered. Patient agrees to proceed with procedure.
[2020-08-31] MEDS: DEXTROSE 50% 25 GM/50 ML SYRINGE IV PUSH (13:04)
[2020-08-31] MEDS: ceFAZolin 2 GM/D5W 50 ML 2 GM/50 ML BAG IVPB (13:04)
[2020-08-31 13:49] LABS: Glucose Point of Care 109 (65-105)
[2020-08-31] MEDS: BUPIVACAINE/EPINEPHRINE 0.5% 30 ML VIAL INFILTRATE (13:49)
--- NOTE | 2020-08-31 14:46 | PM.PROC ---
Procedure Note - Detailed Date of procedure: 08/31/20 Pre-op diagnosis: Sepsis, dehydration dysphagia, CVA Post-op diagnosis: same Procedure performed: open gastrostomy tube placement Description of procedure: The patient was brought to the operating room and placed in the supine position. After adequate induction of general anesthesia, the patient was prepped and draped in the normal sterile fashion. A time-out was then done to verify the patient's identity, as well as the procedure being performed. I began by making an upper midline incision. This incision was used to gain access into the peritoneal cavity. Once into the abdomen, I examined the left upper quadrant. A previous gastrostomy tract was noted and there was noted to be some murky drainage. I did irrigate this area out. I was then able to identify the stomach. I went ahead and picked an area in the body of the stomach for placement of our new gastrostomy tube. Two pursestring sutures were then placed at the site of the anticipated gastrostomy. I then made a incision in left upper quadrant and placed a 16 [place] gastrostomy tube through this incision. I then made the gastrostomy and placed the tube into the stomach. I then cinched the 2 pursestring sutures around the newly placed tube. I was then able to inflate the gastrostomy tube with 20 mL of normal saline. I then brought the tube up to the anterior abdominal wall. I then went ahead and placed sutures to tack the stomach up to the anterior abdominal wall creating a Radha gastrostomy. I then flushed the gastrostomy tube and no leakage present. I then examined the rest of the abdominal cavity and there was noted to be a large pelvic mass. This was likely originating from the ovary. Then closed the fascia with looped 0 PDS suture. The skin was closed with skin aayush. Sterile dressing was then placed. The patient tolerated the procedure relatively and was extubated in the operating Room postop. She will be transferred to the recovery room in stable condition. Anesthesia: GETA Surgeon: Kari Holt MD Estimated blood loss (mL): 10 Drains: No Packing: No Pathology: none sent Complications: No immediate complications Condition: stable Disposition: PACU Findings: placement of 16 [place] gastrostomy tube
[2020-08-31 15:09] LABS: Glucose Point of Care 83 (65-105)
--- NOTE | 2020-08-31 16:27 | PM.IMPN ---
Progress Note: A&P Assessment and Plan (1) Dysphagia: Code(s): R13.10 - Dysphagia, unspecified Status: Acute Assessment and Plan: S/p G-tube placement Appreciate surgery note. (2) Esophagitis: Code(s): K20.90 - Esophagitis, unspecified without bleeding Status: Acute Assessment and Plan: NPO PPI (3) Stroke: Code(s): I63.9 - Cerebral infarction, unspecified Status: Acute Assessment and Plan: Statin Supportive care (4) Acute renal failure: Qualifiers: Acute renal failure type: unspecified Qualified Code(s): N17.9 - Acute kidney failure, unspecified Code(s): N17.9 - Acute kidney failure, unspecified Status: Resolved Assessment and Plan: Resolved Continue to monitor (5) Pneumonia due to COVID-19 virus: Code(s): U07.1 - COVID-19; J12.82 - Pneumonia due to coronavirus disease 2019 Status: Resolved Assessment and Plan: Resolved. (6) Hypernatremia: Code(s): E87.0 - Hyperosmolality and hypernatremia Status: Acute Assessment and Plan: Will resume water flushes once feeding tube can be used Repeat BNP in am D10 (7) Diabetes mellitus: Qualifiers: Diabetes mellitus type: type 2 Diabetes mellitus retirement insulin use: without termite exterminator helper use Diabetes mellitus complication status: without complication Qualified Code(s): E11.9 - Type 2 diabetes mellitus without complications Code(s): E11.9 - Type 2 diabetes mellitus without complications Status: Chronic Assessment and Plan: ISS as needed Accu checks q6 hours. (8) Thrombocytosis: Code(s): D47.3 - Essential (hemorrhagic) thrombocythemia Status: Acute Assessment and Plan: Likely to be reactive Continue to monitor (9) Leukocytosis: Qualifiers: Leukocytosis type: unspecified Qualified Code(s): D72.829 - Elevated white blood cell count, unspecified Code(s): D72.829 - Elevated white blood cell count, unspecified Status: Acute Assessment and Plan: Resolved. (10) Dehydration: Code(s): E86.0 - Dehydration Status: Acute Assessment and Plan: D10 Daily I/O's (11) Acute encephalopathy: Code(s): G93.40 - Encephalopathy, unspecified Status: Acute Assessment and Plan: Waxes and wanes (12) Acute respiratory failure with hypoxia: Code(s): J96.01 - Acute respiratory failure with hypoxia Status: Resolved Assessment and Plan: Resolved Subjective Date/time seen: 08/31/20 16:27 States that she is fine Review of Systems Review of Systems: ROS unobtainable: Yes unobtainable due to medical condition (Delirium) Exam Narrative: Exam Narrative: Lying in bed. Const: General: comfortable and other (Chronically ill looking) Nutritional Appearance: thin Orientation/consciousness: Other orientation findings (Delirious.) HENMT: Head: normocephalic Ears: hearing grossly normal bilaterally Face and sinus: normal facial exam Eyes: General: appearance normal, both eyes and all related structures Pupils: Equal, round and reactive pupils present EOM: EOMs intact bilaterally Neck: Neck: no lymphadenopathy, supple and no JVD Resp: Auscultation: clear to auscultation bilaterally Cardio: Jugular venous distension: no JVD Rate: regular rate Rhythm: regular rhythm GI: GI Palp: Yes Soft to palpation and Yes No hepatosplenomegaly present Skin: Lesions: no lesions Rashes: no rashes Wounds: wounds noted (feding tube) Neuro: General: CN's II-XI intact bilaterally Cranial nerves: Yes CN's II-XII intact bilaterally and Yes Equal, round and reactive pupils present Cognition (Neuro): abnormal cognition (Delirious) Extrem: General: no pedal edema Objective Data Vital Signs Vital Signs: Vital Signs - 24 hr 08/30/20 20:00 08/30/20 22:00 08/31/20 06:00 Temperature 98.4 F 97.6 F Pulse Rate 88 91 Respiratory
[2020-08-31] MEDS: ROSUVASTATIN 10 MG TABLET 20 MG FEED TUBE (17:59)
[2020-08-31] MEDS: ENOXAPARIN 40 MG/0.4 ML SYRINGE SUB-Q ×2 (18:00→21:35)
[2020-08-31] MEDS: ASPIRIN 325 MG TABLET FEED TUBE (18:00)
--- NOTE | 2020-08-31 19:04 | PC.NURSE ---
Held scheduled 6units of insulin, blood sugar 83. Tube feeding restarted and D 10 IV continuos infusion restarted..
[2020-08-31 20:40] LABS: Glucose Point of Care 84 (65-105)
[2020-08-31] MEDS: INSULIN GLARGINE (*BKC) 100 UNITS/ML 25 UNITS SUB-Q (21:34)
[2020-09-01] VITALS (53 sets, daily range): BP systolic 95–132; BP diastolic 47–94; PULSE 75–123; RESP 16–48; TEMP 36.3–36.9; O2SAT 91–100
--- NOTE | 2020-09-01 00:42 | PM.CCN ---
Critical Care Event Note Summary Code activated: No Narrative: 09/01/2020 at 12:20 a.m. Nursing staff had called me just after midnight when the patient developed respiratory distress. The patient had previously been on 5 L nasal cannula. Suddenly she had significant desaturations down to 80%. Gastric contents were noted in the patient's posterior oropharynx which were suctioned. The patient had just had a open gastrotomy tube placed on the . The patient had been doing well post operatively prior to her episode of aspiration. A stat nebulizer treatment was ordered. The patient was also placed on a non-rebreather. With non-rebreather the patient's oxygen saturations ranging between 89 and 92%. After nebulizer treatment the patient's oxygen saturation did briefly improve up to 96-100%. And her respiratory rate briefly improved back down to 26 and heart rate had improved from 150s down to 120s. However within 15 minutes or so the patient began having desaturations again. Her respiratory rate had climbed to 46. Stat ABG demonstrated hypoxemia that correlated with the patient's vital signs. The patient's was contacted regarding the change in the patient's condition. Patient's stated that he did not want her intubated if she would not wake up and be her usual self. However he did not want to make a decision to make her DNR at this time. He opted for intubation he said he would come see the patient tomorrow and make further decisions. A stat chest x-ray was obtained which demonstrated worsening bilateral infiltrates compared to x-ray from the . Stat labs were also obtained. The patient was transferred to the ICU for intubation due to acute hypoxic respiratory failure. GENERAL: Acutely ill-appearing, respiratory distress HEENT: Mucous membranes are dry, absent gag reflex CARDIOVASCULAR: Sinus tachycardia, 2+ left radial pulse RESPIRATORY: Coarse rhonchi bilaterally, marked tachypnea, accessory muscle use ABDOMEN: Abdominal binder in place with G-tube, blood on abdominal binder did due to patient pulling out her IV INTEGUMENT: Generalized pallor, warm to touch NEUROLOGIC: Confused, restless, not following commands PSYCHIATRIC: Confused, agitated EXTREMITIES: No clubbing, positive cyanosis : Tavares catheter is placed when the patient arrived to the ICU and patient had 1.7 L of urine output of tea-colored urine Assessment and Plan: 1. Worsening hypoxic respiratory failure due to aspiration pneumonia--patient has been transferred to the ICU and intubated. The patient is ventilated with a.c./CMV ventilation tidal volume of 320 rate of 18 peep of 5 weaning FiO2 to maintain saturations of 92%. The patient's case was discussed with the knuckle strap sewer to agrees with current management. Patient has been started on antibiotic therapy with clindamycin and vancomycin. The patient is penicillin allergic. Stat blood cultures have been obtained. 2. Severe sepsis due to aspiration pneumonia--on criteria of leukocytosis, tachycardia, tachypnea, hypoxia, acute renal failure and lactic acidosis. Patient is on antibiotic therapy as discussed above. Blood cultures and urine cultures have been obtained 3. Acute renal failure--likely secondary to urinary obstruction as patient had at least 1.7 L and urinary retention. The patient's Tavares catheter immediately drain 1.7 L. The catheter is now clamped. The patient's creatinine had been climbing since the . Will renally dose vancomycin. Will give patient fluid bolus and repeat labs again in a.m.. By anticipate this will improve now that the patient's urinary obstruction has resolved. 4. Acute on chronic anemia--patient's hemoglobin has trended down 1.5 g in the last 24 hours. Likely due to prolonged illness and acute renal failure. Will check anemia labs. 140 minutes spent in critical care activities. This case had a high probability of a clinically significant, sudden, or life threate
[2020-09-01 00:45] LABS: Glucose Point of Care 182 (65-105)
[2020-09-01 00:49] LABS: Alveolar/Arterial O2 Gradient 614.9 mmHg; Base Excess ABG -6.6 mEq/l (+/-2.0); Carboxyhemoglobin 0.3 % THb (0-2.0); Fractional Inspired Oxygen 100 %; HCO3 ABG 18.1 mEq/l (22.0-26.0); Methemoglobin ABG 0.4 %THb (0-1.5); Oxygen Content ABG 10.4 %vol (16.0-22.0); Oxygen Saturation ABG 92.4 % (95.0-100.0); Oxyhemoglobin 88.8 % THb (90.0-100.0); PCO2 ABG 32.8 mmHg (35.0-45.0); PO2 ABG 65.3 mmHg (80.0-100.0); PO2 FiO2 Ratio Arterial Blood 0.65 %; Reduced Hemoglobin 10.5 %THb (0-5.0); Total Hemoglobin 8.3 g/dL (12.0-18.0)
[2020-09-01 00:50] LABS: Device NON-REBREATHER MASK; Modified Allen's Test Unable to perform; Site Drawn RIGHT RADIAL
[2020-09-01 01:06] LABS: Basophils Percent Auto 0.1 % (0.2-1.2); Hematocrit 23.5 % (37.0-47.0); Hemoglobin 7.2 g/dL (12.0-15.0); Immature Granulocyte Absolute 0.09 K/mm3 (0.00-0.031); Immature Granulocyte Percent A 0.6 % (0-0.5); Lymphocytes Absolute Auto 0.57 K/mm3 (0.9-3.2); Mean Corpuscular HGB Conc 30.6 g/dl (32-36); Mean Corpuscular Hemoglobin 29.4 pg (26-34); Mean Corpuscular Volume 95.9 fl (80-100); Mean Platelet Volume 12.4 fl (7.4-10.4); Monocytes Absolute Auto 0.4 K/mm3 (0.1-0.6); Monocytes Percent Auto 2.7 % (2.6-8.5); Neutrophils Absolute Auto 13.3 K/mm3 (1.3-6.7); Neutrophils Percent Auto 92.6 % (45.5-73.1); Platelet Count Result 218 k/mm3 (150-375); Red Blood Count 2.45 M/mm3 (4.2-5.4); Red Cell Distribution Width 15.8 % (11.5-14.5); White Blood Count 14.3 K/mm3 (4.5-10.0)
[2020-09-01 01:17] LABS: Glucose Point of Care 278 (65-105)
[2020-09-01 01:24] LABS: Anion Gap 12 mmol/L (8-16); Blood Urea Nitrogen 83 mg/dL (7-17); Calcium 7.9 mg/dL (8.4-10.2); Carbon Dioxide 20 mmol/L (22-30); Chloride 111 mmol/L (98-107); Estimated CRCL calculation 9 ml/min; Estimated Glomerular Filt Rate 11; Glucose 312 mg/dL (65-105); Potassium 5.7 mmol/L (3.4-5.0); Sodium 143 mmol/L (137-145)
[2020-09-01 01:27] LABS: Lactic Acid Reflex 4.6 mmol/L (0.7-2.1)
[2020-09-01] MEDS: MIDAZOLAM 100MG/NS 100ML(*CRX) 100 MG/100 ML BAG IV CONT (02:00)
[2020-09-01] MEDS: FENTANYL 2,500MCG/NS250ML(*CRX 2,500 MCG/250 ML BAG IV CONT (02:00)
--- NOTE | 2020-09-01 02:00 | WPDPROCEDUR ---
Procedures Intubation Intubation Date: 09/01/20 Intubation Time: 01:28 A pre-procedural Time-Out was completed immediately before starting the procedure and confirmed: Patient Identification, Site, Procedure, Patient Position and the Availability of Requisite Equipment: Yes Sedative: etomidate Mg given: 20 Paralytic: succinylcholine Mg given: 60 Laryngoscope: fiber optic video scope ET tube size: 7 Tube secured depth (cm): 22 Tube secured location: lips Tube placement confirmation: visualized tube passing through cords, equal breath sounds bilaterally, no breath sounds over epigastrium and confirmation by capnometry Patient tolerated procedure: well Intubation complications: none Additional comments: Chest x-ray reviewed. ET tube in appropriate position.
[2020-09-01 02:40] LABS: Glucose Point of Care 246 (65-105)
[2020-09-01 03:00] LABS: Alveolar/Arterial O2 Gradient 443.9 mmHg; Base Excess ABG -6.1 mEq/l (+/-2.0); Carboxyhemoglobin 0.2 % THb (0-2.0); Device VENTILATOR; Fractional Inspired Oxygen 80 %; HCO3 ABG 18.2 mEq/l (22.0-26.0); Methemoglobin ABG 0.3 %THb (0-1.5); Modified Allen's Test Pass; Oxygen Saturation ABG 97.1 % (95.0-100.0); Oxyhemoglobin 94.9 % THb (90.0-100.0); PCO2 ABG 31.4 mmHg (35.0-45.0); PO2 ABG 93.5 mmHg (80.0-100.0); PO2 FiO2 Ratio Arterial Blood 1.17 %; Reduced Hemoglobin 4.6 %THb (0-5.0); Site Drawn LEFT RADIAL; Total Hemoglobin 10.4 g/dL (12.0-18.0)
[2020-09-01 03:01] LABS: Arterial Blood Gas PEEP 5 cmH2O; Arterial Blood Gas Tidal Volume 320 ml; Arterial Blood Gas Vent Mode CMV; Arterial Blood Gas Ventilator rate 18 /MIN
[2020-09-01] MEDS: SODIUM CHLORIDE 0.9% IV 1,000 ML 999 ML IV CONT ×2 (03:03→04:46)
[2020-09-01 03:11] LABS: Add Urine Microscopic? YES; Appearance Urine Clear (Clear); Bacteria Urine Trace /hpf; Bilirubin Urine Negative (Negative); Blood Urine 2+ (Negative); Color Urine Yellow (Yellow); Glucose Urine UA 2+ mg/dL (Negative); Ketones Urine Negative (Negative); Leukocyte Esterase Ur Negative LEU/UL (Negative); Nitrate Urine Negative (Negative); Protein Urine Negative (Negative); RBC Urine 51-75 /hpf (0-2); Specific Grav Ur 1.016 (1.001-1.035); Squamous Epithelial Cell Urine Rare /hpf (Few); Urobilinogen Urine Negative mg/dL (<2.0); WBC Urine 0-3 /hpf
[2020-09-01] MEDS: INSULIN ASPART (*BKC) 100 UNITS/ML SUB-Q (03:14)
[2020-09-01] MEDS: CLINDAMYCIN 900 MG/D5W 50 ML 900 MG/50 ML PIGGYBACK 50 MG IVPB (03:25)
[2020-09-01 04:04] LABS: Reflex Lactic Acid Yes or No Add Lactic
--- NOTE | 2020-09-01 04:23 | ADMIMU ---
This patient, Ayaka Montoya, was admitted to transferred to ICU status, and placed in Intensive Care Unit-10 post rapid response for intubation.
--- NOTE | 2020-09-01 04:31 | PC.NURSE ---
@ 2300: PT AWAKENING, RESTLESS. EPISODE OF VOMITUS APPEARING LIKE TUBE FEED X1; SUCTIONED OROPHARYNX. MOUTH CARE GIVEN. RR-20. ON O2 3L PNC. 0000: PT INCREASINGLY RESTLESS. COARSE UPPER AIRWAY SOUNDS. CRACKLES HEARD ANTERIORLY. SUCTIONED ORALLY SMALL AMOUNT VOMITUS. SPO2 78 ON 3LPM. NOW TACHYPNEIC WITH RR 30s. 02 INCREASED TO 6LPM. SPO2 83-86% DR. AMADO CALLED PT INCREASINGLY RESTLESS, TACHYPNEIC, AND MARGINAL SPO2. SUSPECTED ASPIRATE. 0017:RAPID RESPONSE CALLED. DR. AMADO, RCT, PRINCIPAL TECHNICAL ARCHITECT, HOUSE SUP HERE AND INTERVENTIONS PERFORMED. 0100: PT'S SPOUSE CALLED TO UPDATE OF STATUS OF ACUTE RESP DISTRESS AND POSSIBLE TRANSFER TO ICU/INTUBATION. PT D/W DR. AMADO PRESENT CONDITION/CARE OPTIONS. PLAN TRANSFER TO ICU AND PREPARE FOR INTUBATION/VENTILATION. 0125:PT TO ICU 10.0200: SPOUSE UPDATED AGAIN RE: PT TRANSFER TO ICU.
--- NOTE | 2020-09-01 05:46 | PCRCNOTE ---
PRIYA for 05:00 to be canceled per . We got one at 02:54am.
[2020-09-01 06:51] LABS: Glucose Point of Care 195 (65-105)
[2020-09-01 06:54] LABS: Basophils Percent Auto 0.1 % (0.2-1.2); Immature Granulocyte Absolute 0.03 K/mm3 (0.00-0.031); Immature Granulocyte Percent A 0.4 % (0-0.5); Lymphocytes Absolute Auto 0.44 K/mm3 (0.9-3.2); Lymphocytes Percent Auto 5.5 % (18.3-44.2); Mean Corpuscular HGB Conc 29.6 g/dl (32-36); Mean Corpuscular Hemoglobin 28.9 pg (26-34); Mean Corpuscular Volume 97.6 fl (80-100); Mean Platelet Volume 12.6 fl (7.4-10.4); Monocytes Absolute Auto 0.3 K/mm3 (0.1-0.6); Monocytes Percent Auto 3.9 % (2.6-8.5); Neutrophils Absolute Auto 7.3 K/mm3 (1.3-6.7); Neutrophils Percent Auto 90.1 % (45.5-73.1); Platelet Count Result 124 k/mm3 (150-375); Red Blood Count 2.11 M/mm3 (4.2-5.4); Red Cell Distribution Width 15.6 % (11.5-14.5); Reticulocyte Hemoglobin Conten 22.5 pg (28.2-35.7); Reticulocyte Percent 2.01 % (0.7-4.3); Reticulocytes Absolute 0.04 B/L (32.2-175.7); White Blood Count 8.1 K/mm3 (4.5-10.0)
[2020-09-01 07:05] LABS: Alanine Aminotransferase 45 U/L (4-35); Albumin Level 2.4 g/dL (3.5-5.1); Alkaline Phosphatase 186 U/L (38-126); Anion Gap 10 mmol/L (8-16); Aspartate Amino Transferase 72 U/L (14-36); Bilirubin,Total 0.7 mg/dL (0.2-1.3); Blood Urea Nitrogen 73 mg/dL (7-17); Calcium 7.2 mg/dL (8.4-10.2); Carbon Dioxide 21 mmol/L (22-30); Chloride 114 mmol/L (98-107); Estimated CRCL calculation 11 ml/min; Estimated Glomerular Filt Rate 14; Glucose 221 mg/dL (65-105); Potassium 4.9 mmol/L (3.4-5.0); Sodium 145 mmol/L (137-145)
[2020-09-01 07:06] LABS: Lactate Dehydrogenase 1207 U/L (313-618)
[2020-09-01 07:13] LABS: Transferrin 119 mg/dL (206-381)
[2020-09-01 07:24] LABS: Iron 22 ug/dL (37-170)
[2020-09-01 08:08] LABS: Percent Iron Saturation 11 % (20-50)
[2020-09-01 08:46] LABS: Folic Acid > 20.0 ng/mL (2.76->20)
[2020-09-01] MEDS: ROSUVASTATIN 10 MG TABLET 20 MG FEED TUBE (09:27)
[2020-09-01] MEDS: ENOXAPARIN 40 MG/0.4 ML SYRINGE SUB-Q ×2 (09:27→20:56)
[2020-09-01] MEDS: ASPIRIN 325 MG TABLET FEED TUBE (09:27)
[2020-09-01] MEDS: PANTOPRAZOLE SODIUM IV 40 MG VIAL IV PUSH (09:27)
[2020-09-01] MEDS: LACTATED RINGERS 1,000 ML 75 ML IV CONT (09:27)
[2020-09-01 09:56] LABS: Hematocrit 20.6 % (37.0-47.0); Hemoglobin 6.1 g/dL (12.0-15.0)
--- NOTE | 2020-09-01 10:25 | WPDANESPN ---
Anes - Prog Note Post-Op Date/Time: 09/01/20 10:25 Cardiovascular status: other (patient hgb 6.1, trending with labs) Respiratory status: other (patient intubated ) Airway patency: other (intubated) Mental status: other (Unable to assess) Post-Op hydration status: other (IVF) Vital Signs: Last Vital Signs Temp 36.3 C L 09/01/20 00:35 Pulse 94 09/01/20 09:58 Resp 16 09/01/20 09:58 BP 95/53 L 09/01/20 09:58 Pulse Ox 100 09/01/20 09:58 Pain Score (VAS): 0 I/O: Intake & Output 08/31/20 09/01/20 09/01/20 23:59 07:59 15:59 Intake Total 785 1300 Output Total 2280 Balance 785 -980 Laboratory Tests 09/01/20 06:43 09/01/20 06:43 08/31/20 08/31/20 08/31/20 12:51 13:46 15:07 WBC RBC Hgb Hct MCV MCH MCHC RDW Plt Count MPV Immature Gran % (Auto) Neut % (Auto) Lymph % (Auto) [place] % (Auto) Eos % (Auto) Baso % (Auto) Lymph # (Auto) [place] # (Auto) Eos # (Auto) Baso # (Auto) Abs Immat Gran (auto) Absolute Neuts (auto) Absolute Nucleated RBC Nucleated RBC % Absolute Retic Percent Retic Immature Retic Fraction Retic Hgb Content Puncture Site ABG pH ABG pCO2 ABG pO2 ABG PO2/FiO2 Ratio ABG HCO3 ABG O2 Saturation ABG O2 Content ABG Base Excess A-a Gradient Oxyhemoglobin Carboxyhemoglobin Methemoglobin Reduced Hemoglobin Total Hemoglobin O2 Delivery Device O2 Liters/Min Minute Volume Vent Rate Vent Mode FiO2 Tidal Volume PEEP Peak Inspir Pressure Pressure Support Sodium Potassium Chloride Carbon Dioxide Anion Gap BUN Creatinine Estim Creat Clear Calc Estimated GFR Glucose POC Capillary Glucose 58 L* 109 83 Lactic Acid Calcium Iron TIBC % Saturation Transferrin Ferritin Total Bilirubin AST ALT Alkaline Phosphatase Lactate Dehydrogenase Total Protein Albumin Vitamin B12 Folate Urine Color Urine Appearance Urine pH Ur Specific [place] Urine Protein Urine Glucose (UA) Urine Ketones Ur Blood (Man) Urine Nitrate Urine Bilirubin Urine Urobilinogen Leukocyte Esterase Rfl Urine RBC Urine WBC Ur Squamous Epith Cells Urine Bacteria Hyaline Casts 08/31/20 08/31/20 09/01/20 18:51 21:34 00:42 WBC RBC Hgb Hct MCV MCH MCHC RDW Plt Count MPV Immature Gran % (Auto) Neut % (Auto) Lymph % (Auto) [place] % (Auto) Eos % (Auto) Baso % (Auto) Lymph # (Auto) [place] # (Auto) Eos # (Auto) Baso # (Auto) Abs Immat Gran (auto) Absolute Neuts (auto) Absolute Nucleated RBC Nucleated RBC % Absolute Retic Percent Retic Immature Retic Fraction Retic Hgb Content Puncture Site Right radial ABG pH 7.360 ABG pCO2 32.8 L ABG pO2 65.3 L ABG PO2/FiO2 Ratio 0.65 ABG HCO3 18.1 L ABG O2 Saturation 92.4 L ABG O2 Content 10.4 L ABG Base Excess -6.6 A-a Gradient 614.9 Oxyhemoglobin 88.8 L Carboxyhemoglobin 0.3 Methemoglobin 0.4 Reduced Hemoglobin 10.5 H Total Hemoglobin 8.3 L O2 Delivery Device Non-rebreather mask O2 Liters/Min 15.0 Minute Volume Vent Rate Vent Mode FiO2 100 Tidal Volume PEEP Peak Inspir Pressure Pressure Support Sodium Potassium Chloride Carbon Dioxide Anion Gap BUN Creatinine Estim Creat Clear Calc Estimated GFR Glucose POC Capillary Glucose 84 182 H Lactic Acid Calcium Iron TIBC % Saturation Transferrin Ferritin Total Bilirubin AST ALT Alkaline Phosphatase Lactate Dehydrogenase Total Protein Albumin Vitamin B12 Folate Urine Color Urine Appearance Urine pH Ur Specific [place] Urine Protein
--- NOTE | 2020-09-01 12:33 | PCOTNOTE ---
Spoke to RN, hold orders being placed for therapy secondary to medical status change and patient currently intubated.
--- NOTE | 2020-09-01 12:36 | PCPTNOTE ---
PATIENT intubated, not appropriate currently for skilled therapy...HOLD orders coming... will reusme when appropriate
[2020-09-01 13:26] LABS: Glucose Point of Care 133 (65-105)
--- NOTE | 2020-09-01 13:27 | WPDCNINT ---
Assessment and Plan Assessment and plan (1) Stroke: Code(s): I63.9 - Cerebral infarction, unspecified Status: Acute (2) Dysphagia: Code(s): R13.10 - Dysphagia, unspecified Status: Acute (3) Aspiration of gastric contents: Code(s): T17.910A - Gastric contents in respiratory tract, part unspecified causing asphyxiation, initial encounter Status: Acute (4) Acute respiratory failure with hypoxia: Code(s): J96.01 - Acute respiratory failure with hypoxia Status: Resolved Assessment and Plan: This patient has acute aspiration of gastric contents but no signs of acute pneumonia as of yet but given her frailty and illness I have decided to start her on broad-spectrum antibiotics none the less. blood and urine cultures are pending and she has no significant sputum from the endotracheal tube at the moment. (5) Acute renal failure: Qualifiers: Acute renal failure type: unspecified Qualified Code(s): N17.9 - Acute kidney failure, unspecified Code(s): N17.9 - Acute kidney failure, unspecified Status: Resolved Assessment and Plan: Likely due to dehydration. Will continue IV fluids with lactated Ringer's at 75 cc an hour. (6) TONIA (acute kidney injury): Code(s): N17.9 - Acute kidney failure, unspecified Status: Acute (7) Dehydration: Code(s): E86.0 - Dehydration Status: Acute (8) Anemia: Code(s): D64.9 - Anemia, unspecified Status: Acute Assessment and Plan: Hemoglobin is down to 6.1 from 7.2 after large volume crystalloid fluid boluses overnight she has nose apparent signs of bleeding. This is most likely dilutional but nonetheless is significantly lower than her hemoglobin was many days ago which was closer to 10. I will transfuse her 2 units of packed red blood cells today. We will continue aspirin at 325 mg daily in light of her recent stroke and in the absence of any significant GI bleeding. Will continue pantoprazole 40 mg daily. Additional Plan I spoke extensively with her today at the bedside. He was quite tearful when talking about code status. He does not want her to suffer but at the same time would like her daughter to come and see her. On Thursday he will consider changing her code status especially if there has been no significant clinical improvement. Code status: Full code Critical care time spent:33 minutes Due to a high probability of clinically significant, life threatening deterioration, the patient required my highest level of preparedness to intervene emergently and I personally spent this critical care time directly and personally managing the patient. This critical care time included obtaining a history; examining the patient; pulse oximetry; ordering and review of studies; arranging urgent treatment with development of a management plan; evaluation of patient's response to treatment; frequent reassessment; and discussions with other providers. It was exclusive of separately billable procedures and treating other patients and teaching time. Please see Assessment and Plan section and the rest of the note for further information on patient assessment and treatment Certified Registered Dental Assistant Consult Note Consult date: 09/01/20 Time Seen: 10:00 HPI: Ayaka Montoya is a 85 year old female Who was admitted to the intensive care unit last night for acute respiratory failure status post an aspiration event. She apparently vomited and by lists or greenish aspiration material was suctioned out of the posterior pharynx around the time of intubation. The patient developed COVID-19 approximately 3 weeks ago and then later developed a stroke and apparently was weak and not eating. A gastrostomy tube was placed yesterday. I am not sure as to what led to the patient vomiting. Nonetheless she was intubated and brought to the intensive care unit and started on antibiotics. I viewed her lab work, Ry an
--- NOTE | 2020-09-01 16:32 | PM.PNGS ---
Progress Note: A&P Assessment and Plan (1) Anemia: Code(s): D64.9 - Anemia, unspecified Status: Acute (2) TONIA (acute kidney injury): Code(s): N17.9 - Acute kidney failure, unspecified Status: Acute (3) Aspiration of gastric contents: Code(s): T17.910A - Gastric contents in respiratory tract, part unspecified causing asphyxiation, initial encounter Status: Acute (4) Pneumonia due to COVID-19 virus: Code(s): U07.1 - COVID-19; J12.82 - Pneumonia due to coronavirus disease 2019 Status: Resolved (5) Diabetes mellitus: Qualifiers: Diabetes mellitus complication status: without complication Diabetes mellitus ocean transportation intermediary insulin use: without intermediate use Diabetes mellitus type: type 2 Qualified Code(s): E11.9 - Type 2 diabetes mellitus without complications Code(s): E11.9 - Type 2 diabetes mellitus without complications Status: Chronic (6) Acute respiratory failure with hypoxia: Code(s): J96.01 - Acute respiratory failure with hypoxia Status: Resolved (7) Stroke: Code(s): I63.9 - Cerebral infarction, unspecified Status: Acute Assessment and Plan: This apparently has some other reason for her unresponsiveness and also possibly for her poor swallowing / aspiration. This is also the reason she had a PEG tube placed initially and now required a open gastrostomy tube placement. Additional Plan Discussed plan with instructional facilitator. Patient not ready yet for tube feedings. Will follow and help make decision as to when to start these. Subjective Subjective Date/Time Seen: 09/01/20 16:32 Post Op day: 1 ( status post open placement of gastrostomy tube) Interval history: On the floor last evening patient aspirated and had respiratory distress. She was subsequently brought to the ICU and intubated. Chest x-ray showing worsening infiltrates. G-tube was placed to low intermittent suction when she was brought ICU. This is what it is on now. Review of Systems Review of Systems: ROS unobtainable: Yes unobtainable due to endotracheal tube Exam Const: General: ill appearing and patient obtunded Other: On the ventilator. HENMT: Head: normal to inspection General nose exam: Other nasal findings present GI: Inspection: incision ( Dressing change with ICU nurse.) GI Palp: Yes Other GI palpation findings present ( No rigidity. Abdomen seems flat.) Auscultation: Hypoactive bowel sounds present Other: Midline dressing changed and there is some serosanguineous drainage. Dressing change around the gastrostomy tube and the tube gently pulled up such that I could see the 6 cm argelia at the top of the silastic ring. New 4 x 4 dressings applied. Urinary Catheter: Urinary Catheter: patent and draining and urine dark Neuro: General: patient obtunded and other ( Intubated and sedated in ICU.) Objective Data Vital Signs Vital Signs: Vital Signs - 24 hr 08/31/20 16:55 08/31/20 17:55 08/31/20 20:00 Temperature 36.6 C 36.6 C Pulse Rate 85 90 Respiratory Rate 20 18 Blood Pressure 125/88 136/53 L Pulse Oximetry 95 99 99 08/31/20 21:49 09/01/20 00:20 09/01/20 00:25 Temperature 36.7 C Pulse Rate 97 114 H 80 Respiratory Rate 20 48 H 36 H Blood Pressure 125/64 131/71 108/94 H Pulse Oximetry 97 100 98 09/01/20 00:35 09/01/20 01:11 09/01/20 01:39 Temperature 36.3 C L Pulse Rate 112 H 123 H 110 H Respiratory Rate 24 H Blood Pressure 131/47 L Pulse Oximetry 94 91 100 09/01/20 02:00 09/01/20 02:15 09/01/20 02:30 Temperature Pulse Rate 113 H 111 H 107 H Respiratory Rate 41 H 42 H 32 H Blood Pressure Pulse Oximetry 09/01/20 03:00 09/01/20 03:01 09/01/20 03:03 Temperature Pulse Rate 106 H 105 H 97 Respiratory Rate 29 H 26 H Blood Pressure Pulse Oximetry 99 95 09/01/20 03:38 09/01/20 03:45 09/01/20 03:46 Temperature Pulse Rate 95 98 107 H Respiratory Rate 29 H 30 H 30 H Blood
--- NOTE | 2020-09-01 17:06 | PM.IMPN ---
Progress Note: A&P Assessment and Plan (1) Acute respiratory failure with hypoxia: Code(s): J96.01 - Acute respiratory failure with hypoxia Status: Resolved Assessment and Plan: On vent support Poor prognosis Planning to withdraw support of care on Thursday pending daughter to see her prior Appreciate Int/CC consult. (2) Aspiration of gastric contents: Code(s): T17.910A - Gastric contents in respiratory tract, part unspecified causing asphyxiation, initial encounter Status: Acute Assessment and Plan: S/p intubation and vent support Started on antibiotics (3) Dysphagia: Code(s): R13.10 - Dysphagia, unspecified Status: Acute Assessment and Plan: S/p feeding tube (4) TONIA (acute kidney injury): Code(s): N17.9 - Acute kidney failure, unspecified Status: Acute Assessment and Plan: Likely pre renal as well as post renal Tavares in IV fluids Strict I/O's Daily BMP Continue to monitor (5) Stroke: Code(s): I63.9 - Cerebral infarction, unspecified Status: Acute Assessment and Plan: Unchanged (6) Pneumonia due to COVID-19 virus: Code(s): U07.1 - COVID-19; J12.82 - Pneumonia due to coronavirus disease 2019 Status: Resolved Assessment and Plan: 17 days since testing positive (7) Hypernatremia: Code(s): E87.0 - Hyperosmolality and hypernatremia Status: Acute Assessment and Plan: Free water flushes as needed (8) Acute encephalopathy: Code(s): G93.40 - Encephalopathy, unspecified Status: Acute Assessment and Plan: Worsened Unresponsive On vent Subjective Date/time seen: 09/01/20 17:06 Patient is now on ventilator support. Review of Systems Review of Systems: ROS unobtainable: Yes unobtainable due to medical condition Exam Narrative: Exam Narrative: Lying in bed on vent support. Const: General: no acute distress and ill appearing Nutritional Appearance: thin Orientation/consciousness: Other orientation findings (Unresponsive on vent.) HENMT: Head: normal to inspection and normocephalic Face and sinus: normal facial exam Other: ETT in place Eyes: General: appearance normal, both eyes and all related structures Pupils: Equal, round and reactive pupils present EOM: EOMs intact bilaterally Neck: Neck: no lymphadenopathy, supple and no JVD Resp: Auscultation: clear to auscultation bilaterally Cardio: Jugular venous distension: no JVD Rate: regular rate Rhythm: regular rhythm GI: GI Palp: Yes Soft to palpation and Yes No hepatosplenomegaly present Skin: Rashes: no rashes Wounds: wounds noted (Feeding tube in place.) Neuro: General: other (Unresponsive.) Cranial nerves: Yes Bilaterally intact EOM present Extrem: General: no pedal edema Objective Data Vital Signs Vital Signs: Vital Signs - 24 hr 08/31/20 17:55 08/31/20 20:00 08/31/20 21:49 Temperature 97.8 F 98.0 F Pulse Rate 90 97 Respiratory Rate 18 20 Blood Pressure 136/53 L 125/64 Pulse Oximetry 99 99 97 09/01/20 00:20 09/01/20 00:25 09/01/20 00:35 Temperature 97.3 F L Pulse Rate 114 H 80 112 H Respiratory Rate 48 H 36 H 24 H Blood Pressure 131/71 108/94 H 131/47 L Pulse Oximetry 100 98 94 09/01/20 01:11 09/01/20 01:39 09/01/20 02:00 Temperature Pulse Rate 123 H 110 H 113 H Respiratory Rate 41 H Blood Pressure Pulse Oximetry 91 100 09/01/20 02:15 09/01/20 02:30 09/01/20 03:00 Temperature Pulse Rate 111 H 107 H 106 H Respiratory Rate 42 H 32 H 29 H Blood Pressure Pulse Oximetry 09/01/20 03:01 09/01/20 03:03 09/01/20 03:38 Temperature Pulse Rate 105 H 97 95 Respiratory Rate 26 H 29 H Blood Pressure Pulse Oximetry 99 95 09/01/20 03:45 09/01/20 03:46 09/01/20 04:00 Temperature Pulse Rate 98 107 H 98 Respiratory Rate 30 H 30 H 29 H Blood Pressure 118/56 L Pulse Oximetry 100 100 100 09/01/20 04:01 09/01/20 04:15
[2020-09-01 17:36] LABS: Glucose Point of Care 78 (65-105)
[2020-09-01 19:29] LABS: Glucose Point of Care 66 (65-105)
[2020-09-01] MEDS: DEXTROSE 50% 25 GM/50 ML SYRINGE IV PUSH (19:39)
[2020-09-01] MEDS: DEXTROSE 5%/LACTATED RINGERS 1,000 ML 100 ML IV CONT (20:56)
[2020-09-01 21:00] LABS: Glucose Point of Care 76 (65-105)
[2020-09-01 21:36] LABS: Glucose Point of Care 79 (65-105)
[2020-09-01 22:28] LABS: Glucose Point of Care 82 (65-105)
[2020-09-02] VITALS (24 sets, daily range): BP systolic 103–145; BP diastolic 53–64; PULSE 78–99; RESP 19–29; TEMP 37.1; O2SAT 93–101
[2020-09-02 02:02] LABS: Glucose Point of Care 98 (65-105)
[2020-09-02 02:02] LABS: Glucose Point of Care 99 (65-105)
[2020-09-02 04:28] LABS: Alveolar/Arterial O2 Gradient 106.3 mmHg; Base Excess ABG -0.3 mEq/l (+/-2.0); Carboxyhemoglobin 0.3 % THb (0-2.0); Fractional Inspired Oxygen 30 %; HCO3 ABG 23.2 mEq/l (22.0-26.0); Methemoglobin ABG 0.3 %THb (0-1.5); Oxygen Content ABG 11.5 %vol (16.0-22.0); Oxygen Saturation ABG 94.8 % (95.0-100.0); Oxyhemoglobin 92.4 % THb (90.0-100.0); PCO2 ABG 33.2 mmHg (35.0-45.0); PO2 ABG 68.6 mmHg (80.0-100.0); PO2 FiO2 Ratio Arterial Blood 2.29 %; Total Hemoglobin 8.8 g/dL (12.0-18.0); pH ABG 7.462 (7.350-7.450)
[2020-09-02 04:29] LABS: Device VENTILATOR; Modified Allen's Test Pass; Site Drawn LEFT RADIAL
[2020-09-02 04:30] LABS: Arterial Blood Gas PEEP 5 cmH2O; Arterial Blood Gas Tidal Volume 320 ml; Arterial Blood Gas Vent Mode CMV; Arterial Blood Gas Ventilator rate 14 /MIN
[2020-09-02] MEDS: MIDAZOLAM 100MG/NS 100ML(*CRX) 100 MG/100 ML BAG IV CONT (05:05)
[2020-09-02 05:50] LABS: Glucose Point of Care 112 (65-105)
[2020-09-02] MEDS: DEXTROSE 5%/LACTATED RINGERS 1,000 ML 100 ML IV CONT ×2 (06:01→20:16)
[2020-09-02 06:54] LABS: Hematocrit 26.8 % (37.0-47.0); Hemoglobin 8.4 g/dL (12.0-15.0); Mean Corpuscular HGB Conc 31.3 g/dl (32-36); Mean Corpuscular Hemoglobin 28.3 pg (26-34); Mean Corpuscular Volume 90.2 fl (80-100); Mean Platelet Volume 12.5 fl (7.4-10.4); Platelet Count Result 122 k/mm3 (150-375); Red Blood Count 2.97 M/mm3 (4.2-5.4); Red Cell Distribution Width 16.9 % (11.5-14.5); White Blood Count 8.6 K/mm3 (4.5-10.0)
[2020-09-02 07:11] LABS: Band Neutrophils Percent 2 % (0-6); Hypochromasia 1+ (NORMAL); Lymphocytes Absolute Manual 0.77 K/mm3 (1.1-4.5); Microcytosis 1+ (NORMAL); Monocytes Absolute Manual 0.25 K/mm3 (0.1-0.90); Monocytes Percent Manual 3 % (3-9); Neutrophils Absolute Manual 7.56 K/mm3 (1.7-7.2); Neutrophils Percent Manual 86 % (46-73); Platelet Estimate Decreased (Adequate); Total Cells Counted 100
[2020-09-02 07:12] LABS: Smudge Cells PRESENT
[2020-09-02 07:21] LABS: Alanine Aminotransferase 24 U/L (4-35); Albumin Level 2.2 g/dL (3.5-5.1); Alkaline Phosphatase 156 U/L (38-126); Anion Gap 3 mmol/L (8-16); Aspartate Amino Transferase 36 U/L (14-36); Bilirubin,Total 0.3 mg/dL (0.2-1.3); Blood Urea Nitrogen 49 mg/dL (7-17); Calcium 7.3 mg/dL (8.4-10.2); Carbon Dioxide 26 mmol/L (22-30); Chloride 116 mmol/L (98-107); Estimated CRCL calculation 20 ml/min; Estimated Glomerular Filt Rate 29; Glucose 110 mg/dL (65-105); Phosphorus 4.2 mg/dL (2.5-4.5); Potassium 3.7 mmol/L (3.4-5.0); Sodium 145 mmol/L (137-145)
[2020-09-02 07:28] LABS: Vancomycin Random 7.6 ug/mL (10-20)
[2020-09-02 08:40] LABS: Glucose Point of Care 91 (65-105)
[2020-09-02] MEDS: ASPIRIN 325 MG TABLET FEED TUBE (09:06)
[2020-09-02] MEDS: LACTULOSE 20 GM/30 ML UDC PO (09:06)
[2020-09-02] MEDS: ENOXAPARIN 40 MG/0.4 ML SYRINGE SUB-Q (09:07)
[2020-09-02] MEDS: ROSUVASTATIN 10 MG TABLET 20 MG FEED TUBE (09:07)
[2020-09-02] MEDS: PANTOPRAZOLE SODIUM IV 40 MG VIAL IV PUSH (09:08)
[2020-09-02 12:09] LABS: Glucose Point of Care 141 (65-105)
--- NOTE | 2020-09-02 13:49 | WPDINTPN ---
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 Consider discontinuing antibiotics if all cultures are negative after 48-72 hours. (4) Esophagitis: Code(s): K20.90 - Esophagitis, unspecified without bleeding Status: Acute (5) Stroke: Code(s): I63.9 - Cerebral infarction, unspecified Status: Acute Assessment and Plan: Yaneli coma scale is 7 today. She has apparent weakness on the left and her MRI on 08/20 20 showed multiple subacute infarcts in the right frontal parietal and temporal lobes.It appears that she has of suffered a severely debilitating stroke and this may be the greatest factor affecting her lack of recovery. It does not appear it at this early stage that she will be a good candidate for extubation and that she will protect her airway. She is highly likely to re- aspirate. if her mental status does not improve in the next 24-48 hours to the point where she is able to awaken and protect her airway then comfort measures should be considered as her will not likely want her to have a tracheostomy and go to a fpc. This will have to be discussed with him over the next 24-48 hours. (6) Dysphagia: Code(s): R13.10 - Dysphagia, unspecified Status: Acute (7) Pneumonia due to COVID-19 virus: Code(s): U07.1 - COVID-19; J12.82 - Pneumonia due to coronavirus disease 2019 Status: Resolved (8) Acute encephalopathy: Code(s): G93.40 - Encephalopathy, unspecified Status: Acute Additional Plan Code status is full for now but consider comfort measures should be considered if no improvement in next 24-48 hours A total of 33 minutes of critical care time was spent. Subjective Date/time seen: 09/02/20 13:49 Interval history: Sedation has been held this morning but neurologically she is not waking up. Her Yaneli coma Scale off sedation is E1 V1 M5 today. After speaking to the hospitalist who was caring for him she tells me that her baseline prior to her intubation was quite poor and she was nonverbal and did not follow any commands And in fact hospice was being considered. Review of Systems Review of Systems: All systems reviewed & are unremarkable except as noted in HPI and below Exam Narrative: Exam Narrative: Lying in bed. Const: General: comfortable and other (Chronically ill looking) Nutritional Appearance: thin Orientation/consciousness: Other orientation findings (Delirious.) HENMT: Head: normocephalic Ears: hearing grossly normal bilaterally Face and sinus: normal facial exam Eyes: General: appearance normal, both eyes and all related structures Pupils: Equal, round and reactive pupils present EOM: EOMs intact bilaterally Neck: Neck: no lymphadenopathy, supple and no JVD Resp: Auscultation: clear to auscultation bilaterally Cardio: Jugular venous distension: no JVD Rate: regular rate Rhythm: regular rhythm GI: GI Palp: Yes Soft to palpation and Yes No hepatosplenomegaly present Skin: Lesions: no lesions Rashes: no rashes Wounds: wounds noted (feding tube) Neuro: General: CN's II-XI intact bilaterally Cranial nerves: Yes CN's II-XII intact bilaterally and Yes Equal, round and reactive pupils present Cognition (Neuro): abnormal cognition (Delirious) Extrem: General: no pedal edema Objective Data Vital Signs Vital Signs: Vital Signs - 24 hr 09/01/20 14:00 09/01/20 14:35 09/01/20 15:32 Temperature Pulse Rate 96 93 96 Respiratory Rate 18 20
--- NOTE | 2020-09-02 14:33 | PM.PNGS ---
Progress Note: A&P Assessment and Plan (1) Anemia: Code(s): D64.9 - Anemia, unspecified Status: Acute (2) TONIA (acute kidney injury): Code(s): N17.9 - Acute kidney failure, unspecified Status: Acute (3) Aspiration of gastric contents: Code(s): T17.910A - Gastric contents in respiratory tract, part unspecified causing asphyxiation, initial encounter Status: Acute (4) Pneumonia due to COVID-19 virus: Code(s): U07.1 - COVID-19; J12.82 - Pneumonia due to coronavirus disease 2019 Status: Resolved (5) Diabetes mellitus: Qualifiers: Diabetes mellitus complication status: without complication Diabetes mellitus buttermaker insulin use: without buttermaker use Diabetes mellitus type: type 2 Qualified Code(s): E11.9 - Type 2 diabetes mellitus without complications Code(s): E11.9 - Type 2 diabetes mellitus without complications Status: Chronic (6) Acute respiratory failure with hypoxia: Code(s): J96.01 - Acute respiratory failure with hypoxia Status: Resolved (7) Stroke: Code(s): I63.9 - Cerebral infarction, unspecified Status: Acute Assessment and Plan: This apparently is another reason for her unresponsiveness and also possibly for her poor swallowing / aspiration. This is also the reason she had a PEG tube placed initially and now required a open gastrostomy tube placement. (8) Hematuria: Code(s): R31.9 - Hematuria, unspecified Status: Acute Assessment and Plan: Review of Dr. Holt's op note states that he saw an mass in the pelvis with intra-abdominal exam. Subsequently when the patient had her acute episode of respiratory distress and transferred to ICU a Tavares catheter was placed and about 2300 cc of urine came out. I wonder if the mass he saw was a very distended bladder? Subsequently a pelvic ultrasound showed possible mass within the bladder 3 x 4 cm in size. If patient does not go hospice, consider urology consultation regarding her hematuria and possible bladder mass on Thursday09/03/2020 Additional Plan Discussed plan with investigator operator. Patient possibly ready yet for tube feedings. Will follow and help make decision as to when to start these. Plain film of the abdomen today reveals no dilated loops of small bowel. NG tube in place. I discussed this with the nurse. We will leave the NG tube in to use for residual checks. Will start out tube feedings through the current gastrostomy tube at approximately 30 cc/hour. I again checked the gastrostomy tube and the 6 cm argelia can be seen at the level of the external securing ring on the patient's skin. Subjective Subjective Date/Time Seen: 09/02/20 14:33 Post Op day: 2 ( Status post open gastrostomy tube placement) Interval history: patient is still intubated and not responding well in ICU on the ventilator. Nurse reports not much output from NG tube overnight. Review of Systems Review of Systems: ROS unobtainable: Yes unobtainable due to endotracheal tube, unobtainable due to medical condition and unobtainable due to mental status Exam Const: General: no acute distress, ill appearing and patient obtunded Nutritional Appearance: average body habitus Orientation/consciousness: patient obtunded Limitations: altered mental status Other: On the ventilator. HENMT: Head: normal to inspection, normocephalic and atraumatic Ears: external ears normal General nose exam: Normal external nose present and Other nasal findings present Face and sinus: normal facial exam Mouth: Yes Normal oral and palatal mucosa present and Yes moist mucous membranes Eyes: General: appearance normal, both eyes and all related structures Neck: Neck: normal visual inspection and no lymphadenopathy Chest: Chest palpation & inspection: normal inspection of the chest Resp: Effort & Inspection: normal respiratory effort Auscultation: diminished lung sounds Cardio: Jugular v
--- NOTE | 2020-09-02 17:02 | PM.IMPN ---
Progress Note: A&P Assessment and Plan (1) Acute respiratory failure with hypoxia: Code(s): J96.01 - Acute respiratory failure with hypoxia Status: Resolved Assessment and Plan: Currently on vent support Not waking up (2) Aspiration of gastric contents: Code(s): T17.910A - Gastric contents in respiratory tract, part unspecified causing asphyxiation, initial encounter Status: Acute Assessment and Plan: S/p Feeding tube placement NPO (3) Hematuria: Code(s): R31.9 - Hematuria, unspecified Status: Acute Assessment and Plan: Likely secondary to bladder mass. (4) TONIA (acute kidney injury): Code(s): N17.9 - Acute kidney failure, unspecified Status: Acute Assessment and Plan: Likely secondary to obstructive uropathy Tavares in place. (5) Esophagitis: Code(s): K20.90 - Esophagitis, unspecified without bleeding Status: Acute Assessment and Plan: S/p feeding tube placement NPO (6) Stroke: Code(s): I63.9 - Cerebral infarction, unspecified Status: Acute Assessment and Plan: Unchanged. (7) Dysphagia: Code(s): R13.10 - Dysphagia, unspecified Status: Acute Assessment and Plan: NPO (8) Pneumonia due to COVID-19 virus: Code(s): U07.1 - COVID-19; J12.82 - Pneumonia due to coronavirus disease 2019 Status: Resolved Assessment and Plan: Resolved however severe pulmonary fibrosis (9) Hypernatremia: Code(s): E87.0 - Hyperosmolality and hypernatremia Status: Acute Assessment and Plan: As per surgery OK to start feeding thru tube Free water flushes Daily BMP. Subjective Date/time seen: 09/02/20 17:02 On vent support. Review of Systems Review of Systems: ROS unobtainable: Yes unobtainable due to medical condition Exam Narrative: Exam Narrative: Lying in bed. Const: General: no acute distress Nutritional Appearance: thin Orientation/consciousness: Other orientation findings (Unresponsive.) HENMT: Head: normocephalic Face and sinus: normal facial exam Eyes: General: appearance normal, both eyes and all related structures Pupils: Equal, round and reactive pupils present EOM: EOMs intact bilaterally Neck: Neck: no lymphadenopathy, supple and no JVD Resp: Auscultation: clear to auscultation bilaterally Cardio: Rate: regular rate Rhythm: regular rhythm GI: Inspection: other (Feeding tube in place.) GI Palp: Yes Soft to palpation and Yes No hepatosplenomegaly present Skin: Rashes: no rashes Neuro: General: CN's II-XI intact bilaterally and other (Unresponsive) Cranial nerves: Yes Bilaterally intact EOM present Extrem: General: no pedal edema Objective Data Vital Signs Vital Signs: Vital Signs - 24 hr 09/01/20 17:28 09/01/20 17:49 09/01/20 18:00 Temperature 98.4 F Pulse Rate 91 88 75 Respiratory Rate 21 H 20 Blood Pressure 132/59 L 129/58 L Pulse Oximetry 100 100 100 09/01/20 19:45 09/01/20 20:00 09/01/20 20:05 Temperature Pulse Rate 89 90 91 Respiratory Rate 20 23 H Blood Pressure Pulse Oximetry 100 100 09/01/20 22:00 09/01/20 23:27 09/02/20 00:00 Temperature Pulse Rate 87 86 84 Respiratory Rate 20 20 Blood Pressure 117/53 L Pulse Oximetry 100 100 100 09/02/20 00:30 09/02/20 02:00 09/02/20 04:00 Temperature Pulse Rate 84 92 81 Respiratory Rate 20 24 H Blood Pressure 132/59 L Pulse Oximetry 99 09/02/20 04:06 09/02/20 04:30 09/02/20 05:05 Temperature Pulse Rate 81 81 86 Respiratory Rate 24 H 23 H Blood Pressure Pulse Oximetry 98 96 09/02/20 06:00 09/02/20 08:00 09/02/20 10:00 Temperature Pulse Rate 89 87 79 Respiratory Rate 23 H 21 H 21 H Blood Pressure 142/63 H 103/53 L Pulse Oximetry 95 99 99 09/02/20 10:40 09/02/20 11:58 09/02/20 14:50 Temperature Pulse Rate 79 85 86 Respiratory Rate 19 Blood Pressure Pulse Oximetry 99 100 98 In
[2020-09-02 18:25] LABS: Glucose Point of Care 127 (65-105)
[2020-09-02 22:22] LABS: Glucose Point of Care 147 (65-105)
[2020-09-02 22:22] LABS: Glucose Point of Care 131 (65-105)
[2020-09-03] VITALS (23 sets, daily range): BP systolic 112–164; BP diastolic 53–82; PULSE 76–99; RESP 23–31; TEMP 35.9–37.1; O2SAT 96–100; BMI 29.0
[2020-09-03 00:23] LABS: Glucose Point of Care 148 (65-105)
[2020-09-03 02:38] LABS: Glucose Point of Care 185 (65-105)
[2020-09-03] MEDS: DEXTROSE 5%/LACTATED RINGERS 1,000 ML 100 ML IV CONT (04:28)
[2020-09-03 04:57] LABS: Estimated CRCL calculation 38 ml/min; Estimated Glomerular Filt Rate 53
[2020-09-03 05:59] LABS: Alveolar/Arterial O2 Gradient 93.4 mmHg; Carboxyhemoglobin 0.3 % THb (0-2.0); Fractional Inspired Oxygen 30 %; HCO3 ABG 26.2 mEq/l (22.0-26.0); Methemoglobin ABG 0.4 %THb (0-1.5); Oxygen Content ABG 11.9 %vol (16.0-22.0); Oxygen Saturation ABG 96.8 % (95.0-100.0); Oxyhemoglobin 94.4 % THb (90.0-100.0); PCO2 ABG 34.2 mmHg (35.0-45.0); PO2 ABG 80.3 mmHg (80.0-100.0); PO2 FiO2 Ratio Arterial Blood 2.68 %; Reduced Hemoglobin 4.9 %THb (0-5.0); Total Hemoglobin 8.9 g/dL (12.0-18.0); pH ABG 7.502 (7.350-7.450)
[2020-09-03 06:00] LABS: Device VENTILATOR; Modified Allen's Test Unable to perform; Site Drawn RIGHT RADIAL
[2020-09-03 06:02] LABS: Arterial Blood Gas PEEP 5 cmH2O; Arterial Blood Gas Tidal Volume 320 ml; Arterial Blood Gas Vent Mode CMV; Arterial Blood Gas Ventilator rate 14 /MIN
[2020-09-03 07:50] LABS: Anion Gap 2 mmol/L (8-16); Blood Urea Nitrogen 34 mg/dL (7-17); Calcium 7.2 mg/dL (8.4-10.2); Carbon Dioxide 26 mmol/L (22-30); Chloride 116 mmol/L (98-107); Estimated CRCL calculation 38 ml/min; Estimated Glomerular Filt Rate 53; Glucose 213 mg/dL (65-105); Potassium 4.1 mmol/L (3.4-5.0); Sodium 144 mmol/L (137-145)
[2020-09-03 08:06] LABS: Basophils Percent Auto 0.3 % (0.2-1.2); Eosinophils Absolute Auto 0.4 K/mm3 (0-0.3); Eosinophils Percent Auto 4.1 % (0-4.4); Hematocrit 28.2 % (37.0-47.0); Hemoglobin 9.1 g/dL (12.0-15.0); Immature Granulocyte Absolute 0.16 K/mm3 (0.00-0.031); Immature Granulocyte Percent A 1.6 % (0-0.5); Lymphocytes Absolute Auto 1.45 K/mm3 (0.9-3.2); Lymphocytes Percent Auto 14.1 % (18.3-44.2); Mean Corpuscular HGB Conc 32.3 g/dl (32-36); Mean Corpuscular Hemoglobin 28.4 pg (26-34); Mean Corpuscular Volume 88.1 fl (80-100); Mean Platelet Volume 12.5 fl (7.4-10.4); Monocytes Absolute Auto 0.4 K/mm3 (0.1-0.6); Monocytes Percent Auto 3.7 % (2.6-8.5); Neutrophils Absolute Auto 7.8 K/mm3 (1.3-6.7); Neutrophils Percent Auto 76.2 % (45.5-73.1); Platelet Count Result 112 k/mm3 (150-375); Red Cell Distribution Width 16.6 % (11.5-14.5); White Blood Count 10.3 K/mm3 (4.5-10.0)
--- NOTE | 2020-09-03 08:12 | PCPTNOTE ---
PT orders discontinued, please reorder when appropriate.
--- NOTE | 2020-09-03 08:34 | PM.PNGS ---
Progress Note: A&P Assessment and Plan (1) Dysphagia: Code(s): R13.10 - Dysphagia, unspecified Status: Acute Assessment and Plan: s/p open G tube, jamila TF, cont routine postop care (2) Aspiration of gastric contents: Code(s): T17.910A - Gastric contents in respiratory tract, part unspecified causing asphyxiation, initial encounter Status: Acute Assessment and Plan: mgmt per intesivist Subjective Subjective Date/Time Seen: 09/03/20 08:34 Pt seen and examined. No acute issues overnight, cont to be obtunded, intubated. Jamila TFs @ goal since yesterday, low residual thru NG. Review of Systems Review of Systems: ROS unobtainable: Yes unobtainable due to endotracheal tube, unobtainable due to medical condition and unobtainable due to mental status Exam Const: General: ill appearing and patient obtunded Resp: Auscultation: diminished lung sounds Cardio: Rate: regular rate Rhythm: regular rhythm GI: Inspection: normal to inspection, non-distended and incision GI Palp: Yes Soft to palpation Other: soft, sl dist, incision C/D/I, G tube C/D/I Objective Data Vital Signs Vital Signs: Vital Signs - 24 hr 09/02/20 10:00 09/02/20 10:40 09/02/20 11:58 Temperature Pulse Rate 79 79 85 Respiratory Rate 21 H 19 Blood Pressure 103/53 L Pulse Oximetry 99 99 100 09/02/20 12:00 09/02/20 14:00 09/02/20 14:50 Temperature Pulse Rate 78 88 86 Respiratory Rate 21 H Blood Pressure 145/64 H Pulse Oximetry 98 98 09/02/20 16:00 09/02/20 17:57 09/02/20 18:00 Temperature Pulse Rate 90 99 97 Respiratory Rate 24 H 21 H Blood Pressure 130/56 L Pulse Oximetry 100 98 95 09/02/20 18:36 09/02/20 19:00 09/02/20 20:00 Temperature 37.1 C Pulse Rate 98 99 96 Respiratory Rate 29 H 26 H Blood Pressure 134/54 L Pulse Oximetry 101 H 97 09/02/20 20:29 09/02/20 22:00 09/02/20 23:27 Temperature Pulse Rate 98 94 98 Respiratory Rate 24 H Blood Pressure 119/55 L Pulse Oximetry 96 95 95 09/03/20 00:00 09/03/20 02:00 09/03/20 04:00 Temperature 36.6 C 36.8 C Pulse Rate 99 93 90 Respiratory Rate 28 H 25 H 24 H Blood Pressure 156/75 H 158/75 H 133/62 Pulse Oximetry 100 99 98 09/03/20 05:36 09/03/20 06:00 09/03/20 08:04 Temperature Pulse Rate 84 89 90 Respiratory Rate 26 H Blood Pressure 138/58 L Pulse Oximetry 98 99 100 09/03/20 08:18 Temperature Pulse Rate 90 Respiratory Rate Blood Pressure Pulse Oximetry 99 Intake/Output Intake/Output: Intake & Output 08/31/20 09/01/20 09/02/20 09/03/20 23:59 23:59 23:59 23:59 Intake Total 1785 2000 2205 1490 Output Total 2980 1850 775 Balance 1785 -980 355 715 Meds/Results Medications: Active Medications Generic Name Dose Route Start Last Admin Trade Name Freq PRN Reason Stop Dose Admin Aspirin 325 mg 08/20/20 21:25 09/02/20 09:06 Aspirin 325 Mg Tablet FEED TUBE 325 mg DAILY@0800 NAZARIO Administration Dextrose 12.5 gm 08/16/20 17:17 09/01/20 19:39 Dextrose 50% 25 Gm/50 Ml Syringe IV PUSH 12.5 gm PRN PRN Administration Hypoglycemia Protocol Enoxaparin Sodium 40 mg 09/02/20 09:00 09/02/20 09:07 Enoxaparin 40 Mg/0.4 Ml Syringe SUB-Q 40 mg DAILY NAZARIO Administration Glucagon 1 mg 08/16/20 17:17 Glucagon For Inj 1 Mg Vial IM PRN PRN Hypoglycemia Protocol Glucose 15 gm 08/16/20 17:17 Glucose Oral Gel 15 Gm Of Glucse In 37.5 Gm Tube PO PRN PRN Hypoglycemia Protocol Dextrose 1,000 mls @ 100 mls/hr 08/16/20 17:17 Dextrose 5% 1,000 Ml IVPB PRN PRN Hypoglycemia Protocol Midazolam HCl 100 mg in 100 mls @ 2 mls/hr 09/01/20 01:45 09/03/20 06:00 Versed 100 Mg/Ns 100 Ml IV CONT 2 mg/hr .Q50H NAZARIO 2 mls/hr Titration Protocol 2 MG/HR Cefepime HCl 2 gm in 50 mls @ 100 mls/hr 09/02/20 09:00 09/02/20 12:39 Maxipime 2 Gm/D5w 50 Ml IVPB 100 mls/hr DAILY SC
[2020-09-03 09:02] LABS: Glucose Point of Care 221 (65-105)
[2020-09-03 10:21] LABS: Glucose Point of Care 200 (65-105)
[2020-09-03 10:21] LABS: Glucose Point of Care 193 (65-105)
[2020-09-03 10:21] LABS: Glucose Point of Care 211 (65-105)
[2020-09-03] MEDS: PANTOPRAZOLE SODIUM IV 40 MG VIAL IV PUSH (10:39)
[2020-09-03] MEDS: ASPIRIN 325 MG TABLET FEED TUBE (10:40)
[2020-09-03] MEDS: ENOXAPARIN 40 MG/0.4 ML SYRINGE SUB-Q (10:40)
[2020-09-03] MEDS: ROSUVASTATIN 10 MG TABLET 20 MG FEED TUBE (10:41)
--- NOTE | 2020-09-03 11:11 | PCDIET ---
ICU Rounding Note: Patient receiving Glucerna 1.2 at 30mL/hr with 30mL water flush every 4 hours. Once ok with surgery, recommend advancing toward 50mL/hr. Last recorded weight is 76.7kg which is up from last review. Bowel Motility: +BM today. Labs Reviewed: Hgb (9.1), Hct (28.2), Glu (213), BUN (34), Cl (116), Irene Ca (8.64) Meds Noted: Maxipime, Versed, Protonix, Crestor, Vancomycin Additional Notes: RN reports skin intact, other than surgical sites to abdomen. Following daily in ICU rounds. Assessing/reassessing every Thursday/Thursday.
--- NOTE | 2020-09-03 12:24 | WPDINTPN ---
Progress Note: A&P Assessment and Plan (1) Stroke: Code(s): I63.9 - Cerebral infarction, unspecified Status: Acute Assessment and Plan: Yaneli coma scale is 7 today. She has apparent weakness on the left and her MRI on 08/20 20 showed multiple subacute infarcts in the right frontal parietal and temporal lobes.It appears that she has of suffered a severely debilitating stroke and this may be the greatest factor affecting her lack of recovery. It does not appear it at this early stage that she will be a good candidate for extubation and that she will protect her airway. She is highly likely to re- aspirate. if her mental status does not improve in the next 24-48 hours to the point where she is able to awaken and protect her airway then comfort measures should be considered as her will not likely want her to have a tracheostomy and go to a retirement. This will have to be discussed with him over the next 24-48 hours. (2) Acute respiratory failure with hypoxia: Code(s): J96.01 - Acute respiratory failure with hypoxia Status: Resolved Assessment and Plan: Acute respiratory failure likely related to aspiration -patient intubated and placed mechanical ventilation on 09/01/2020 -place patient on pressure support ventilation, 5/5 and tolerating. Slightly tachycardic otherwise good tidal volumes. -patient's mental status does not allow me to extubated patient has she may not be able to protect her airway or cough or per secretions because of her mental status. -will add bronchodilators (3) Anemia: Code(s): D64.9 - Anemia, unspecified Status: Acute Assessment and Plan: Patient with anemia on 09/01/2020 with hemoglobin of 6.1 requiring 2 units of packed RBCs. -unknown etiology -continue Protonix -patient on aspirin for her recent stroke -hemoglobin stable and improving -continue to monitor (4) TONIA (acute kidney injury): Code(s): N17.9 - Acute kidney failure, unspecified Status: Acute Assessment and Plan: TONIA could be related to hypotension -S creatinine back to normal level. 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 Consider discontinuing antibiotics if all cultures are negative after 48-72 hours. (6) Pneumonia due to COVID-19 virus: Code(s): U07.1 - COVID-19; J12.82 - Pneumonia due to coronavirus disease 2019 Status: Resolved Assessment and Plan: As above (7) Acute encephalopathy: Code(s): G93.40 - Encephalopathy, unspecified Status: Acute Assessment and Plan: Likely due to multiple strokes, aspiration pneumonia Additional Plan Discussed with patient's daughter [place]. Updated daughter with with patient's condition and plan of care. Currently the daughter patient did not want a tracheostomy on be in this position. She did not want to live on machines. The daughter stated that it was her birthday on 09/01/2018 and the granddaughter's but the on 09/04/2020. S she states her father will likely decide to make her comfort measures/hospice on 09/05/2020 Code status: Full code Critical care time spent: 34 minutes Subjective Date/time seen: 09/03/20 12:24 Interval history: 09/03/2020: Patient remains intubated, on CMV mode of ventilation, peep of 5 and 30% FiO2. Patient did tolerate pressure support ventilation yesterday. Patient on Versed at 2 mg/hour. Patient is hemodynamically stable. Does not open her eyes or follows simple commands Review of Systems Review of Systems: ROS unobtainable: Yes unobtainable due to endotracheal tube, unobtainable due to medic
[2020-09-03 13:25] LABS: Glucose Point of Care 187 (65-105)
[2020-09-03] MEDS: IPRATROPIUM BR 0.02% INH SOLN 0.5 MG/2.5 ML VIAL INHALATION ×2 (13:47→19:38)
[2020-09-03] MEDS: ALBUTEROL SULFATE NEB 2.5 MG/0.5 ML INH INHALATION ×2 (13:47→19:38)
--- NOTE | 2020-09-03 17:15 | PM.IMPN ---
Progress Note: A&P Assessment and Plan (1) Acute respiratory failure with hypoxia: Code(s): J96.01 - Acute respiratory failure with hypoxia Status: Resolved Assessment and Plan: On ventilator support Poor prognosis Awaiting family to decide on comfort measures only and withdrawal of support of care. (2) Aspiration of gastric contents: Code(s): T17.910A - Gastric contents in respiratory tract, part unspecified causing asphyxiation, initial encounter Status: Acute Assessment and Plan: NPO S/P tube feeding placement (3) Dysphagia: Code(s): R13.10 - Dysphagia, unspecified Status: Acute Assessment and Plan: NPO (4) Pneumonia due to COVID-19 virus: Code(s): U07.1 - COVID-19; J12.82 - Pneumonia due to coronavirus disease 2019 Status: Resolved Assessment and Plan: Resolved (5) Acute encephalopathy: Code(s): G93.40 - Encephalopathy, unspecified Status: Acute Assessment and Plan: Worsened (6) Stroke: Code(s): I63.9 - Cerebral infarction, unspecified Status: Acute Assessment and Plan: Worsened Subjective Date/time seen: 09/03/20 17:15 On vent support. Review of Systems Review of Systems: ROS unobtainable: Yes unobtainable due to medical condition Exam Narrative: Exam Narrative: On vent support Const: General: ill appearing Nutritional Appearance: thin HENMT: Head: normal to inspection and normocephalic Face and sinus: normal facial exam Other: ETT in place Eyes: General: appearance normal, both eyes and all related structures Pupils: Equal, round and reactive pupils present EOM: EOMs intact bilaterally Neck: Neck: no lymphadenopathy, supple and no JVD Resp: Auscultation: clear to auscultation bilaterally Cardio: Rate: regular rate Rhythm: regular rhythm GI: Inspection: other (Feeding tube in place, surgical wound in epigastrium.) GI Palp: Yes Soft to palpation and Yes No hepatosplenomegaly present Skin: Rashes: no rashes Neuro: General: other (unresponsive.) Extrem: General: no pedal edema Objective Data Vital Signs Vital Signs: Vital Signs - 24 hr 09/02/20 17:57 09/02/20 18:00 09/02/20 18:36 Temperature Pulse Rate 99 97 98 Respiratory Rate 21 H Blood Pressure 130/56 L Pulse Oximetry 98 95 101 H 09/02/20 19:00 09/02/20 20:00 09/02/20 20:29 Temperature 98.8 F Pulse Rate 99 96 98 Respiratory Rate 29 H 26 H Blood Pressure 134/54 L Pulse Oximetry 97 96 09/02/20 22:00 09/02/20 23:27 09/03/20 00:00 Temperature Pulse Rate 94 98 99 Respiratory Rate 24 H 28 H Blood Pressure 119/55 L 156/75 H Pulse Oximetry 95 95 100 09/03/20 02:00 09/03/20 04:00 09/03/20 05:36 Temperature 97.8 F 98.2 F Pulse Rate 93 90 84 Respiratory Rate 25 H 24 H Blood Pressure 158/75 H 133/62 Pulse Oximetry 99 98 98 09/03/20 06:00 09/03/20 08:00 09/03/20 08:04 Temperature 97.5 F L Pulse Rate 89 94 90 Respiratory Rate 26 H 27 H Blood Pressure 138/58 L 164/82 H Pulse Oximetry 99 98 100 09/03/20 08:18 09/03/20 10:00 09/03/20 12:00 Temperature 96.7 F L 97.1 F L Pulse Rate 90 85 76 Respiratory Rate 24 H 28 H Blood Pressure 156/64 H 112/53 L Pulse Oximetry 99 99 98 09/03/20 13:48 09/03/20 14:00 09/03/20 14:04 Temperature 96.9 F L Pulse Rate 85 85 86 Respiratory Rate 29 H 27 H 26 H Blood Pressure 138/59 L Pulse Oximetry 98 98 09/03/20 16:00 09/03/20 16:42 09/03/20 16:45 Temperature 97.1 F L Pulse Rate 95 89 90 Respiratory Rate 30 H 30 H Blood Pressure 146/62 H Pulse Oximetry 99 100 Intake/Output Intake/Output: Intake & Output 08/31/20 09/01/20 09/02/20 09/03/20 23:59 23:59 23:59 23:59 Intake Total 1785 2000 2505 2253.6 Output Total 2980 1850 1525 Balance 1785 -980 655 728.6 Meds/Results Medications: Active Medications Generic Name Dose Route Start Last Admin Trade Name Freq PRN Reason Stop Dose Admin A
--- NOTE | 2020-09-03 18:49 | ADMGEN ---
This patient, Ayaka Montoya, was admitted to Intensive Care Unit-10 from [facility] at 1850. Report Received from Eboni NORRIS. Patient/family oriented to hospital policies and general routines including ID bracelet, bed and alarms, visiting hours, pain management, procedures, bathroom and other care routines, personal items, smoking policy, room service/diet, and visiting hours. Information on how to activate the Rapid Response Team has been discussed. Patient/Family are encouraged to report perceived risks to care and to ask questions if they do not understand what they are told or what they should do.
[2020-09-03 19:30] LABS: Glucose Point of Care 163 (65-105)
[2020-09-04] VITALS (24 sets, daily range): BP systolic 127–173; BP diastolic 53–82; PULSE 79–104; RESP 17–29; TEMP 36.4–37.4; O2SAT 98–100
[2020-09-04 00:34] LABS: Glucose Point of Care 155 (65-105)
[2020-09-04] MEDS: ALBUTEROL SULFATE NEB 2.5 MG/0.5 ML INH INHALATION ×4 (01:39→20:34)
[2020-09-04] MEDS: IPRATROPIUM BR 0.02% INH SOLN 0.5 MG/2.5 ML VIAL INHALATION ×4 (01:39→20:34)
[2020-09-04 05:01] LABS: Alveolar/Arterial O2 Gradient 101.2 mmHg; Base Excess ABG 4.5 mEq/l (+/-2.0); Carboxyhemoglobin 0.3 % THb (0-2.0); Fractional Inspired Oxygen 30 %; HCO3 ABG 27.6 mEq/l (22.0-26.0); Methemoglobin ABG 0.4 %THb (0-1.5); Oxygen Content ABG 14.5 %vol (16.0-22.0); Oxygen Saturation ABG 95.7 % (95.0-100.0); Oxyhemoglobin 93.4 % THb (90.0-100.0); PCO2 ABG 35.5 mmHg (35.0-45.0); PO2 FiO2 Ratio Arterial Blood 2.37 %; Reduced Hemoglobin 5.9 %THb (0-5.0)
[2020-09-04 05:02] LABS: Device VENTILATOR; Modified Allen's Test Unable to perform; Site Drawn RIGHT RADIAL
[2020-09-04 05:03] LABS: Arterial Blood Gas PEEP 5 cmH2O; Arterial Blood Gas Tidal Volume 320 ml; Arterial Blood Gas Vent Mode CMV; Arterial Blood Gas Ventilator rate 14 /MIN
[2020-09-04 05:04] LABS: pH ABG 7.508 (7.350-7.450)
[2020-09-04 06:14] LABS: Glucose Point of Care 176 (65-105)
[2020-09-04] MEDS: FUROSEMIDE INJ 40 MG/4 ML VIAL IV PUSH (08:42)
[2020-09-04] MEDS: ASPIRIN 325 MG TABLET FEED TUBE (08:42)
[2020-09-04] MEDS: PANTOPRAZOLE SODIUM IV 40 MG VIAL IV PUSH (08:43)
[2020-09-04] MEDS: ROSUVASTATIN 10 MG TABLET 20 MG FEED TUBE (08:43)
--- NOTE | 2020-09-04 09:25 | WPDINTPN ---
Progress Note: A&P Assessment and Plan (1) Fungemia: Code(s): B49 - Unspecified mycosis Status: Acute Assessment and Plan: Yeast in blood cultures 1 of 2 bottles - started on micafungin - Will consult ID (2) Stroke: Code(s): I63.9 - Cerebral infarction, unspecified Status: Acute Assessment and Plan: MRI on 08/20 21 showed multiple subacute infarcts in the right frontal parietal and temporal lobes.It appears that she has of suffered a severely debilitating stroke and this may be the greatest factor affecting her lack of recovery. - It does not appear it at this early stage that she will be a good candidate for extubation and that she will protect her airway. She is highly likely to re- aspirate. if her mental status does not improve in the next 24-48 hours to the point where she is able to awaken and protect her airway then comfort measures should be considered as her will not likely want her to have a tracheostomy and go to a residential. -I discussed with yesterday who is going to be coming today will make some decisions. According the and the daughter the patient's wishes were not to live on machines continue ASA hold enoxaparin due to blood in urine and ett tube (3) Acute respiratory failure with hypoxia: Code(s): J96.01 - Acute respiratory failure with hypoxia Status: Resolved Assessment and Plan: Acute respiratory failure likely related to aspiration -patient intubated and placed mechanical ventilation on 09/01/2020 -place patient on pressure support ventilation, 5/5 and tolerating. Slightly tachycardic otherwise good tidal volumes. -patient's mental status does not allow me to extubated patient has she may not be able to protect her airway or cough or per secretions because of her mental status. -continue bronchodilators -sputum cultures negatiive (4) Anemia: Code(s): D64.9 - Anemia, unspecified Status: Acute Assessment and Plan: Patient with anemia on 09/01/2020 with hemoglobin of 6.1 requiring 2 units of packed RBCs. -unknown etiology -continue Protonix -patient on aspirin for her recent stroke -hemoglobin stable and improving -continue to monitor (5) TONIA (acute kidney injury): Code(s): N17.9 - Acute kidney failure, unspecified Status: Acute Assessment and Plan: TONIA could be related to hypotension -creatinine back to normal level. Urine output has been adequate, electrolytes are stable, will continue to monitor (6) Aspiration of gastric contents: Code(s): T17.910A - Gastric contents in respiratory tract, part unspecified causing asphyxiation, initial encounter Status: Acute Assessment and Plan: Chest x-ray : Slight decrease in patchy bilateral airspace opacities consistent with pneumonia. 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 - sputum , urine cultures negative - Will DC abx (7) Pneumonia due to COVID-19 virus: Code(s): U07.1 - COVID-19; J12.82 - Pneumonia due to coronavirus disease 2019 Status: Resolved Assessment and Plan: As above (8) Acute encephalopathy: Code(s): G93.40 - Encephalopathy, unspecified Status: Acute Assessment and Plan: Likely due to multiple strokes, aspiration pneumonia Additional Plan Discussed with and daughter, theye stated that the pt did not want to live on machines. The daughter stated that it was her birthday on 09/01/2018 and the granddaughter's but the on 09/04/2020. states her father will likely decide to make her comfort measures/hospice on 09/05/2020 Code status: Full code Critical care time spent: 33 minutes Subjective Date/time seen: 09/04/20 09:25 Interval history: 09/04/2020: Patient remains intubated, on CMV mode of ventilation, peep of 5 and 30% FiO2. Patient tolerated pressure support ventilation 5/5 all day yesterday. Urine output has been adequate but blood t
[2020-09-04 09:49] LABS: Glucose Point of Care 183 (65-105)
[2020-09-04] MEDS: MICAFUNGIN SODIUM 100 MG in SODIUM CHLORIDE 0.9% IV 100 ML IVPB (10:57)
--- NOTE | 2020-09-04 10:58 | PCDIET ---
Nutrition Follow-Up Complete: Nutrition Diagnosis: Swallowing difficulty related to possible dysphagia as evidenced by NPO. Nutrition Goal: Meet estimated nutritional needs. Goal in progress. MD order to advance Glucerna 1.2 toward goal rate of 50mL/hr. Patient has been tolerating rate of 30mL/hr. Continues to receive 30mL water flush every 4 hours. Last recorded weight is 75.1 kg which is down from last review. Bowel Motility: BM x 2 today. Labs Reviewed: Glu (176) Meds Noted: Albuterol, Atrovent, Micafungin, Versed, Protonix, Crestor, Lasix Additional Notes: Surgical sites to abdomen s/p g-tube placement. No documented pressure sores. Will continue to monitor with same goal. Noted plan for family meeting to discuss plan of care later today. Nutrition Monitoring and Evaluation: Will monitor every Thursday/Thursday.
--- NOTE | 2020-09-04 11:04 | WPDINFPN2 ---
Progress Note: A&P Assessment and Plan (1) Fungemia: Code(s): B49 - Unspecified mycosis Status: Acute Assessment and Plan: Fungal bloodstream infection, source unconfirmed REC Micafungin #1 appropriate. It is not palliative. Feel free to re-consult if family decides not to proceed to hospice tomorrow. Subjective Date/time seen: 09/04/20 11:04 Objective Data Vital Signs Vital Signs: Vital Signs - 24 hr 09/03/20 12:00 09/03/20 13:48 09/03/20 14:00 Temperature 36.2 C L 36.1 C L Pulse Rate 76 85 85 Respiratory Rate 28 H 29 H 27 H Blood Pressure 112/53 L 138/59 L Pulse Oximetry 98 98 09/03/20 14:04 09/03/20 16:00 09/03/20 16:42 Temperature 36.2 C L Pulse Rate 86 95 89 Respiratory Rate 26 H 30 H 30 H Blood Pressure 146/62 H Pulse Oximetry 98 99 09/03/20 16:45 09/03/20 18:00 09/03/20 19:38 Temperature 35.9 C L Pulse Rate 90 89 86 Respiratory Rate 27 H 23 H Blood Pressure 146/63 H Pulse Oximetry 100 99 100 09/03/20 19:47 09/03/20 20:00 09/03/20 22:00 Temperature 37.1 C Pulse Rate 96 97 94 Respiratory Rate 27 H 31 H 28 H Blood Pressure 142/63 H 145/65 H Pulse Oximetry 97 98 09/03/20 22:56 09/04/20 00:00 09/04/20 01:39 Temperature 36.4 C Pulse Rate 82 79 89 Respiratory Rate 23 H 26 H Blood Pressure 142/68 H Pulse Oximetry 98 99 98 09/04/20 01:51 09/04/20 02:00 09/04/20 04:00 Temperature 36.8 C Pulse Rate 93 88 104 H Respiratory Rate 27 H 22 H 20 Blood Pressure 127/53 L 130/56 L Pulse Oximetry 98 98 09/04/20 04:49 09/04/20 06:00 09/04/20 07:34 Temperature Pulse Rate 90 93 91 Respiratory Rate 22 H 17 Blood Pressure 147/74 H Pulse Oximetry 98 100 100 09/04/20 07:45 09/04/20 08:00 09/04/20 10:00 Temperature 36.7 C Pulse Rate 95 93 99 Respiratory Rate 25 H 27 H 26 H Blood Pressure 144/62 H 150/82 H Pulse Oximetry 100 100 99 Intake/Output Intake/Output: Intake & Output 09/01/20 09/02/20 09/03/20 09/04/20 23:59 23:59 23:59 23:59 Intake Total 19995 2253.6 731 Output Total 2980 1850 1525 700 Balance -980 655 728.6 31 Meds/Results Medications: Active Medications Generic Name Dose Route Start Last Admin Trade Name Freq PRN Reason Stop Dose Admin Albuterol 2.5 mg 09/03/20 14:00 09/04/20 07:34 Albuterol Sulfate Neb 2.5 Mg/0.5 Ml Inh INHALATION 2.5 mg Q6HRT NAZARIO Administration Aspirin 325 mg 08/20/20 21:25 09/04/20 08:42 Aspirin 325 Mg Tablet FEED TUBE 325 mg DAILY@0800 NAZARIO Administration Dextrose 12.5 gm 08/16/20 17:17 09/01/20 19:39 Dextrose 50% 25 Gm/50 Ml Syringe IV PUSH 12.5 gm PRN PRN Administration Hypoglycemia Protocol Enoxaparin Sodium 40 mg 09/02/20 09:00 09/04/20 09:40 Enoxaparin 40 Mg/0.4 Ml Syringe SUB-Q Not Given DAILY NAZARIO Glucagon 1 mg 08/16/20 17:17 Glucagon For Inj 1 Mg Vial IM PRN PRN Hypoglycemia Protocol Glucose 15 gm 08/16/20 17:17 Glucose Oral Gel 15 Gm Of Glucse In 37.5 Gm Tube PO PRN PRN Hypoglycemia Protocol Dextrose 1,000 mls @ 100 mls/hr 08/16/20 17:17 Dextrose 5% 1,000 Ml IVPB PRN PRN Hypoglycemia Protocol Midazolam HCl 100 mg in 100 mls @ 0 mls/hr 09/01/20 01:45 09/04/20 07:10 Versed 100 Mg/Ns 100 Ml IV CONT 0 mg/hr .Q0M NAZARIO 0 mls/hr Titration Protocol Norepinephrine Bitartrate 8 mg in 250 mls @ 9.375 mls/hr 09/01/20 11:45 09/01/20 13:43 Levophed 8 Mg/D5w 250 Ml IV CONT Not Given .[id number] NAZARIO Protocol 5 MCG/MIN Micafungin Sodium 100 mg/ 100 mls @ 100 mls/hr 09/04/20 09:55 09/04/20 10:57 Sodium Chloride IVPB 100 mls/hr DAILY NAZARIO Administration Insulin Aspart 3 - 6 units 08/19/20 00:00 09/02/20 18:39 Insulin Aspart (*Bkc) 100 Units/Ml SUB-Q Not Given Q6HR [facility] Protocol Insulin Aspart 6 units 08/25/20 12:00 09/02/20 18:39 Insulin Aspart (*Bkc) 100 Units/Ml 0.1 units/kg (6 units) Not Given
[2020-09-04 12:09] LABS: Glucose Point of Care 187 (65-105)
--- NOTE | 2020-09-04 12:28 | WPDNEUROPN ---
Progress Note: A&P Assessment and Plan (1) Dysphagia: Code(s): R13.10 - Dysphagia, unspecified Status: Acute (2) Acute renal failure: Qualifiers: Acute renal failure type: unspecified Qualified Code(s): N17.9 - Acute kidney failure, unspecified Code(s): N17.9 - Acute kidney failure, unspecified Status: Resolved (3) Suspected 2019 novel coronavirus infection: Code(s): Z20.822 - Contact with and (suspected) exposure to COVID-19 Status: Acute Additional Plan bihemispheric neurological insult documented abnormal MRI has had very poor general recovery continues to have lethargy with significant neurological deficit chances of functional recovery are extremely unlikely family is considering change in the care but as yet has not decided will discuss with them further EEG is not warranted as the patient is clinically is showing the multiple neurological deficit and has no obvious seizure Exam Const: Nutritional Appearance: overweight Orientation/consciousness: lethargic Limitations: physical limitations and other limitations HENMT: General nose exam: Normal nares present and No nasal discharge present Face and sinus: normal facial exam and face symmetric Mouth: Yes Normal oral and palatal mucosa present Eyes: Visual Rivero: abnormal by confrontation Alignment and Position: alignment normal Pupils: Pupils not reactive Neck: Neck: full ROM Resp: Auscultation: bronchial breath sounds Cardio: Rate: regular rate Neuro: Deep tendon reflexes (DTR's): Rt Biceps (C5, C6): 1+, Left biceps reflex intensity grade: 1+, Right brachioradialis reflex intensity grade: 1+, Left brachioradialis reflex intensity grade: 1+, Right patellar reflex intensity grade: 1+, Left patellar reflex intensity grade: 1+, Right ankle reflex intensity grade: 1+ and Left ankle reflex intensity grade: 1+ Plantar Reflex Responses: equivocal: bilateral Comatose Patient: corneal reflex present Doll's-Eye Reflex: Present Pupils: Sluggish: bilateral Objective Data Vital Signs Vital Signs: Vital Signs - 24 hr 09/03/20 13:48 09/03/20 14:00 09/03/20 14:04 Temperature 36.1 C L Pulse Rate 85 85 86 Respiratory Rate 29 H 27 H 26 H Blood Pressure 138/59 L Pulse Oximetry 98 98 09/03/20 16:00 09/03/20 16:42 09/03/20 16:45 Temperature 36.2 C L Pulse Rate 95 89 90 Respiratory Rate 30 H 30 H Blood Pressure 146/62 H Pulse Oximetry 99 100 09/03/20 18:00 09/03/20 19:38 09/03/20 19:47 Temperature 35.9 C L Pulse Rate 89 86 96 Respiratory Rate 27 H 23 H 27 H Blood Pressure 146/63 H Pulse Oximetry 99 100 09/03/20 20:00 09/03/20 22:00 09/03/20 22:56 Temperature 37.1 C Pulse Rate 97 94 82 Respiratory Rate 31 H 28 H Blood Pressure 142/63 H 145/65 H Pulse Oximetry 97 98 98 09/04/20 00:00 09/04/20 01:39 09/04/20 01:51 Temperature 36.4 C Pulse Rate 79 89 93 Respiratory Rate 23 H 26 H 27 H Blood Pressure 142/68 H Pulse Oximetry 99 98 09/04/20 02:00 09/04/20 04:00 09/04/20 04:49 Temperature 36.8 C Pulse Rate 88 104 H 90 Respiratory Rate 22 H 20 Blood Pressure 127/53 L 130/56 L Pulse Oximetry 98 98 98 09/04/20 06:00 09/04/20 07:34 09/04/20 07:45 Temperature Pulse Rate 93 91 95 Respiratory Rate 22 H 17 25 H Blood Pressure 147/74 H Pulse Oximetry 100 100 100 09/04/20 08:00 09/04/20 10:00 09/04/20 11:19 Temperature 36.7 C Pulse Rate 93 99 94 Respiratory Rate 27 H 26 H Blood Pressure 144/62 H 150/82 H Pulse Oximetry 100 99 100 09/04/20 11:49 Temperature Pulse Rate 92 Respiratory Rate 27 H Blood Pressure Pulse Oximetry 100 Intake/Output Intake/Output: Intake & Output 09/01/20 09/02/20 09/03/20 09/04/20 23:59 23:59 23:59 23:59 Intake Total 1999 2505 2253.6 731 Output Total 2980 1850 1525 2400 Balance -980 655 722.6 -8095 Meds/Results Medications: Active Medications Generic Name Dose Route Start Last Admin Trade Name Freq P
--- NOTE | 2020-09-04 14:21 | CONS_ITS ---
DATE OF CONSULTATION: 09/04/2020 REASON FOR CONSULTATION: Fungemia. HISTORY OF PRESENT ILLNESS: An 85-year-old female who cannot provide any history. She originally was admitted to the hospital on August 15 and has been found to have coronavirus infection. She was admitted after being found unresponsive. Initial evaluation indicated mild leukocytosis, hyponatremia, and desaturation. She has been given a variety of antibiotics over time for various reasons. Her hospital course has been complicated primarily by subacute cerebral infarctions, multiple sites noted on MRI 08/20/2020. Other complicating factors include aspiration syndrome with pneumonitis on September 01, hypoxemic respiratory failure, anemia requiring transfusion, acute renal failure, now resolved, and swallowing dysfunction for which she now has a gastrostomy tube. Apparently due to the respiratory deterioration with the aspiration 3 days ago, blood cultures were collected and are now positive today, consultation requested. She has been given a single dose of micafungin so far. Her family is now planning on conversion to palliative care tomorrow. ALLERGIES: PENICILLIN AND SULFA, BOTH CAUSED HIVES. PRESENT MEDICATIONS: No antibacterials. No ongoing immunosuppressants. Home medication list reviewed. HABITS: No tobacco. No alcohol. PAST MEDICAL HISTORY: In addition to the above, type 2 diabetes mellitus. REVIEW OF SYSTEMS: 14-point review otherwise per record, not obtainable from the patient due to intubated status. FAMILY HISTORY: Not pertinent to her present illness. SOCIAL HISTORY: She is . Lives locally, children as well, none are at the bedside. PHYSICAL EXAMINATION: GENERAL: Elderly female who appears chronically ill. Sedation is off. No pressors. VITAL SIGNS: On the day of her blood culture, she was afebrile and same since then. 150/82, 26, 99, 99% on the noted ventilator settings. SKIN: Poor turgor. Few ecchymoses. No rashes. She has no peripheral catheter phlebitis. EENT: Dry mucous membranes. No thrush. Conjunctivae are clear. Orally intubated. NECK: No meningismus, mass, or thyromegaly. LUNGS: Coarse breath sounds, vesicular, clear to percussion. CHEST: She has no indwelling vascular devices nor did she on September 01. CARDIAC: Regular rate and rhythm. No murmur, gallop, or rub. ABDOMEN: Soft, nontender. No mass. No organomegaly. Hypoactive bowel sounds. : Tavares catheter draining orange clear urine. EXTREMITIES: No clubbing, cyanosis, edema. No skin breakdown. RADIOLOGY: Chest x-ray continues to show airspace opacities consistent with pneumonia. Brain MRI as noted above. LABORATORY DATA: Blood cultures from admission, final no growth and from the , 1 out of 2 sets yeast to be identified further. Sputum is in process from the same day and shows mixed annie. Urine culture also from the , final no growth. White count yesterday 10.3, hemoglobin 9.1, platelets are 112. Mild left shift seen on differential. Blood gases 7.51, 36, 71. She has elevated chloride at 116, BUN 34, creatinine 1, down from 1.7. Accu-Cheks in the mid to upper 100s. Alkaline phosphatase high. AST, ALT normal. Albumin 2.2. Her coronavirus assay 08/15/2020 was positive. ASSESSMENT: 1. Fungal bloodstream infection. Contaminant is unlikely, source is unclear. Could include pulmonary, primary endovascular, less likely skin, soft tissue, bone, joint, upper respiratory or elsewhere. Ame is a likely pathogen of various species. 2. Multiple strokes with encephalopathy, not improving. 3. Respiratory failure. 4. Coronavirus infection with pneumonia, no indication for treatment at this time. RECOMMENDATIONS: 1. Micafungin as appropriate.
[2020-09-04 16:48] LABS: Glucose Point of Care 192 (65-105)
[2020-09-05] VITALS (25 sets, daily range): BP systolic 152–166; BP diastolic 65–79; PULSE 70–99; RESP 14–25; TEMP 36.5–37.4; O2SAT 97–100
[2020-09-05 00:08] LABS: Glucose Point of Care 210 (65-105)
[2020-09-05] MEDS: IPRATROPIUM BR 0.02% INH SOLN 0.5 MG/2.5 ML VIAL INHALATION ×3 (02:15→15:12)
[2020-09-05] MEDS: ALBUTEROL SULFATE NEB 2.5 MG/0.5 ML INH INHALATION ×3 (02:15→15:12)
[2020-09-05 07:01] LABS: Glucose Point of Care 175 (65-105)
[2020-09-05 07:21] LABS: Basophils Percent Auto 0.5 % (0.2-1.2); Eosinophils Absolute Auto 0.3 K/mm3 (0-0.3); Eosinophils Percent Auto 3.7 % (0-4.4); Hematocrit 26.5 % (37.0-47.0); Hemoglobin 8.5 g/dL (12.0-15.0); Immature Granulocyte Percent A 3.5 % (0-0.5); Lymphocytes Absolute Auto 1.11 K/mm3 (0.9-3.2); Lymphocytes Percent Auto 13.1 % (18.3-44.2); Mean Corpuscular HGB Conc 32.1 g/dl (32-36); Mean Corpuscular Hemoglobin 28.4 pg (26-34); Mean Corpuscular Volume 88.6 fl (80-100); Mean Platelet Volume 11.8 fl (7.4-10.4); Monocytes Absolute Auto 0.4 K/mm3 (0.1-0.6); Monocytes Percent Auto 4.5 % (2.6-8.5); Neutrophils Absolute Auto 6.3 K/mm3 (1.3-6.7); Neutrophils Percent Auto 74.7 % (45.5-73.1); Platelet Count Result 132 k/mm3 (150-375); Red Blood Count 2.99 M/mm3 (4.2-5.4); Red Cell Distribution Width 15.8 % (11.5-14.5); White Blood Count 8.5 K/mm3 (4.5-10.0)
[2020-09-05 07:37] LABS: Alanine Aminotransferase 27 U/L (4-35); Albumin Level 2.3 g/dL (3.5-5.1); Alkaline Phosphatase 243 U/L (38-126); Anion Gap 1 mmol/L (8-16); Aspartate Amino Transferase 33 U/L (14-36); Bilirubin,Total 0.4 mg/dL (0.2-1.3); Blood Urea Nitrogen 19 mg/dL (7-17); Calcium 7.2 mg/dL (8.4-10.2); Carbon Dioxide 33 mmol/L (22-30); Chloride 103 mmol/L (98-107); Estimated CRCL calculation 46 ml/min; Estimated Glomerular Filt Rate > 60; Glucose 185 mg/dL (65-105); Magnesium 1.4 mg/dL (1.6-2.3); Phosphorus 2.3 mg/dL (2.5-4.5); Potassium 3.3 mmol/L (3.4-5.0); Sodium 137 mmol/L (137-145)
[2020-09-05 08:01] LABS: Vancomycin Trough 7.9 ug/mL (10.0-20.0)
[2020-09-05] MEDS: POTASSIUM CHLORIDE 20 MEQ PACKET (FOR LIQUID) 40 MEQ FEED TUBE (08:35)
[2020-09-05] MEDS: MAGNESIUM SULF 2 GM/WATER 50ML 2 GM/50 ML BAG IVPB (08:35)
[2020-09-05] MEDS: MICAFUNGIN SODIUM 100 MG in SODIUM CHLORIDE 0.9% IV 100 ML IVPB (08:43)
[2020-09-05] MEDS: ENOXAPARIN 40 MG/0.4 ML SYRINGE SUB-Q (08:43)
[2020-09-05] MEDS: PANTOPRAZOLE SODIUM IV 40 MG VIAL IV PUSH (08:44)
[2020-09-05] MEDS: ASPIRIN 325 MG TABLET FEED TUBE (08:45)
[2020-09-05] MEDS: ROSUVASTATIN 10 MG TABLET 20 MG FEED TUBE (08:45)
--- NOTE | 2020-09-05 11:02 | PCDIET ---
ICU Rounding Note: Patient tolerating Glucerna 1.2 which is advancing toward goal of 50mL/hr with 30mL water flush every 4 hours. Recommend phosphorus placement, if medically appropriate. Last recorded weight is 74.7kg which is stable with last review. Bowel Motility: Last documented BM on 09/04/20 x 1. Per RN, FMS placed last night. Labs Reviewed: Hgb (8.5), Hct (26.5), Glu (185), K (3.3), Alb (2.3), PO4 (2.3), Mg (1.4) Meds Noted: Albuterol, Apresoline, Atrovent, Micafungin, Versed, Protonix, Crestor, Magnesium Sulfate, KCl Additional Notes: Surgical g-tube site documented with no other skin issues. Family plans to withdraw care later today. Following daily in ICU rounds. Assessing/reassessing every Thursday/Thursday.
--- NOTE | 2020-09-05 11:14 | WPDINTPN ---
Progress Note: A&P Assessment and Plan (1) Fungemia: Code(s): B49 - Unspecified mycosis Status: Acute Assessment and Plan: Yeast in blood cultures 1 of 2 bottles -continue micafungin (initiated on 09/04/2020) -appreciated ID consult -repeat blood cultures have been sent and pending (2) Stroke: Code(s): I63.9 - Cerebral infarction, unspecified Status: Acute Assessment and Plan: MRI on 08/20 21 showed multiple subacute infarcts in the right frontal parietal and temporal lobes.It appears that she has of suffered a severely debilitating stroke and this may be the greatest factor affecting her lack of recovery. -appreciate Neurology evaluation and recommendations:B ihemispheric neurological insult documented abnormal MRI has had very poor general recovery. Significant neurological deficit, chance of functional recovery extremely unlikely per neurology note. -I discussed with and daughters on 09/04/2020, an Burmese room maid will be coming today to pray and then they will withdraw support. continue ASA enoxaparin discontinued due to blood in urine and ett tube (3) Acute respiratory failure with hypoxia: Code(s): J96.01 - Acute respiratory failure with hypoxia Status: Resolved Assessment and Plan: Acute respiratory failure likely related to aspiration -patient intubated and placed mechanical ventilation on 09/01/2020 -place patient on pressure support ventilation, 5/5 and tolerating. Slightly tachycardic otherwise good tidal volumes. -patient's mental status does not allow me to extubated patient has she may not be able to protect her airway or cough or per secretions because of her mental status. -continue bronchodilators -sputum cultures negatiive (4) Anemia: Code(s): D64.9 - Anemia, unspecified Status: Acute Assessment and Plan: Patient with anemia on 09/01/2020 with hemoglobin of 6.1 requiring 2 units of packed RBCs. -unknown etiology -continue Protonix -patient on aspirin for her recent stroke -hemoglobin stable and improving -continue to monitor (5) TONIA (acute kidney injury): Code(s): N17.9 - Acute kidney failure, unspecified Status: Acute Assessment and Plan: TONIA could be related to hypotension -creatinine back to normal level. Urine output has been adequate, electrolytes are stable, will continue to monitor (6) Aspiration of gastric contents: Code(s): T17.910A - Gastric contents in respiratory tract, part unspecified causing asphyxiation, initial encounter Status: Acute Assessment and Plan: Chest x-ray : Slight decrease in patchy bilateral airspace opacities consistent with pneumonia. 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 - sputum , urine cultures negative - Will DC abx (7) Pneumonia due to COVID-19 virus: Code(s): U07.1 - COVID-19; J12.82 - Pneumonia due to coronavirus disease 2019 Status: Resolved Assessment and Plan: As above (8) Acute encephalopathy: Code(s): G93.40 - Encephalopathy, unspecified Status: Acute Assessment and Plan: Likely due to multiple strokes, aspiration pneumonia -appreciate Neurology evaluation and recommendations Additional Plan On 09/04/2020: Had a family meeting with the , 1 daughter in the conference room while the other daughter was on the telephone. They all in agreement with withdrawal of support after an Burmese room maid will be coming today on 09/05/2020 to pray with the family and then they will withdraw support on the patient. The patient did not want to live on machines and they want to respect her wishes Code status: Full code Critical care time spent: 33 minutes Subjective Date/time seen: 09/05/20 11:14 Interval history: 09/05/2020: Patient remains intubated, on CMV mode of ventilation, peep of 5 and 30% FiO2. Patient tolerated pressure support ventilation 5/5 all day yesterday. Responded well
[2020-09-05 11:34] LABS: Glucose Point of Care 224 (65-105)
[2020-09-05] MEDS: MORPHINE SULFATE INJ (*CRX) 10 MG/ML AMP 5 MG IV PUSH (22:05)
[2020-09-05] MEDS: LORazepam INJ (*CRX) 2 MG/ML VIAL IV PUSH (22:06)
[2020-09-05] MEDS: ATROPINE SULFATE 1% OPHTH SOLN 5 ML BOTTLE SUBLINGUAL (22:14)
[2020-09-06] VITALS (8 sets, daily range): BP systolic 110–137; BP diastolic 53–67; PULSE 77–91; RESP 13–19; O2SAT 92–95
[2020-09-06] MEDS: MORPHINE SULFATE (*CRX) 2 MG/ML INJ IV PUSH ×3 (00:09→09:40)
[2020-09-06] MEDS: ATROPINE SULFATE 1% OPHTH SOLN 5 ML BOTTLE SUBLINGUAL ×2 (01:52→09:39)
[2020-09-06] MEDS: LORazepam INJ (*CRX) 2 MG/ML VIAL IV PUSH (09:39)
--- NOTE | 2020-09-06 11:24 | PCDIET ---
Nutrition Follow-Up Complete: Nutrition Diagnosis: Swallowing difficulty related to possible dysphagia as evidenced by NPO. Nutrition Goal: Meet estimated nutritional needs. Goal not met. Patient extubated on 09/05/20 with implementation of comfort measures. No diet ordered at present. Will follow for any possible change in plan of care. Please consult RD in the interim if aggressive nutritional therapy is desired. Last recorded weight is 74.7 kg. Bowel Motility: Last documented BM on 09/05/20. Labs Reviewed: No new labs available. Meds Noted: Morphine, Ativan Additional Notes: Abdomen with g-tube site; no pressure sores. Nutrition Monitoring and Evaluation: Will monitor every 5 days.
--- NOTE | 2020-09-06 11:48 | PM.IMPN ---
Progress Note: A&P Assessment and Plan (1) Comfort measures only status: Code(s): Z51.5 - Encounter for palliative care Status: Acute Assessment and Plan: Family withdrew support on 09/05/2020, patient was extubated, tube feeds were held, the medications were discontinued. (2) Fungemia: Code(s): B49 - Unspecified mycosis Status: Acute (3) Stroke: Code(s): I63.9 - Cerebral infarction, unspecified Status: Acute Assessment and Plan: MRI on 08/20 21 showed multiple subacute infarcts in the right frontal parietal and temporal lobes.It appears that she has of suffered a severely debilitating stroke and this may be the greatest factor affecting her lack of recovery. -appreciate Neurology evaluation and recommendations:B ihemispheric neurological insult documented abnormal MRI has had very poor general recovery. Significant neurological deficit, chance of functional recovery extremely unlikely per neurology note. -I discussed with and daughters on 09/04/2020, an Bulgarian venetian blind maker will be coming today to pray and then they will withdraw support. enoxaparin discontinued due to blood in urine and ett tube (4) Acute respiratory failure with hypoxia: Code(s): J96.01 - Acute respiratory failure with hypoxia Status: Resolved Assessment and Plan: Acute respiratory failure likely related to aspiration -extubated on 09/05/2020 as patient was made comfort measures was withdrawal of support (5) Anemia: Code(s): D64.9 - Anemia, unspecified Status: Acute (6) TONIA (acute kidney injury): Code(s): N17.9 - Acute kidney failure, unspecified Status: Acute Assessment and Plan: TONIA could be related to hypotension -creatinine back to normal level. Urine output has been adequate, electrolytes are stable, will continue to monitor (7) Aspiration of gastric contents: Code(s): T17.910A - Gastric contents in respiratory tract, part unspecified causing asphyxiation, initial encounter Status: Acute (8) Pneumonia due to COVID-19 virus: Code(s): U07.1 - COVID-19; J12.82 - Pneumonia due to coronavirus disease 2019 Status: Resolved Assessment and Plan: As above (9) Acute encephalopathy: Code(s): G93.40 - Encephalopathy, unspecified Status: Acute Assessment and Plan: Likely due to multiple strokes, aspiration pneumonia -appreciate Neurology evaluation and recommendations Additional Plan Discussed with daughter at bedside this morning, she feels that her mother is comfortable, daughter was appreciative of all we have done in the ICU for her mother. Code status: DNR, comfort measures Subjective Date/time seen: 09/06/20 11:48 Interval history: 09/05/2020: Patient was made comfort measures with withdrawal of support 09/06/2020: Patient was extubated yesterday, currently on room air . Patient looks comfortable. No examination was performed since patient is comfort measures Objective Data Vital Signs Vital Signs: Vital Signs - 24 hr 09/05/20 12:00 09/05/20 14:00 09/05/20 15:13 Temperature 98.0 F Pulse Rate 84 80 85 Respiratory Rate 14 14 22 H Blood Pressure 158/72 H 155/74 H Pulse Oximetry 99 99 99 09/05/20 15:25 09/05/20 15:43 09/05/20 16:00 Temperature 98.6 F Pulse Rate 82 82 85 Respiratory Rate 22 H 14 16 Blood Pressure 161/74 H Pulse Oximetry 99 100 09/05/20 17:11 09/05/20 18:00 09/05/20 19:27 Temperature Pulse Rate 92 93 92 Respiratory Rate 23 H Blood Pressure 162/77 H Pulse Oximetry 99 99 97 09/05/20 20:00 09/05/20 22:00 09/05/20 22:13 Temperature 98.7 F Pulse Rate 88 83 92 Respiratory Rate 20 21 H Blood Pressure 164/76 H 164/74 H Pulse Oximetry 100 99 97 09/06/20 00:00 09/06/20 02:00 09/06/20 04:00 Temperature Pulse Rate 78 77 78 Respiratory Rate 17 13 13 Blood Pressure 110/55 L 118/53 L 136/59 L Pulse Oximetry 93 94 95
--- NOTE | 2020-10-19 15:04 | P.DS_ITS ---
DS: Admitting Diagnosis Admitting Diagnosis Admitting Diagnosis: DISCHARGE SUMMARY FROM 09/06 DS: Summary Time Spent with Patient Time attestation: Total time spent providing and/or coordinating discharge services: Discharge Plan Discharge Attending physician on discharge: Faina Ford V. Consulting providers: Obdulio Valdez ; Fabio Monreal ; Kari Holt ; Richard Esqueda ; Jenaro Pickard ; Alida Mercado M.A. ; Ricardo Garcia ; Israel Chu ; Andriy Ross ; Jama Tavarez ; Elana Wild ; Miller Nguyen ; Chet Lockhart ; Memo Chandler ; Trevor Samuel V. Discharging Clinician: Faina Ford V. Patient Disposition: Hospice [facility] Inpatient Activity: as tolerated Diet: NPO Patient Instructions: Pain Management (GEN), Pneumonia (GEN), COVID-19 (Coronavirus Disease 2019) (GEN) Stand Alone Forms: General Discharge Information Follow-up/Referrals: Rustam,MD Luisito [Primary Care Provider] - 2 Weeks Date of admission: 08/16/20 10:11 Primary Care Provider: RustamLuisito Admitting Provider: Delta Mcgregor Attending physician on admission: Juan Antonio Mann Condition: Stable Quality VTE Prophylaxis VTE prophylaxis: pharmacologic ordered
--- NOTE | 2020-10-26 08:52 | PM.TDS ---
Transfer Discharge Sum: Prov Provider Date of admission: 08/16/20 10:11 Primary care physician: Luisito Easton, Admitting clinician: Delta Mcgregor MD Consults: 08/16/20 17:33 Consult to Physician Routine Comment: CONSULTED AT 1810([place],) Consulting Provider: Obdulio Valdez pharmaceutical development technician/MD group to consult: neuro Reason for consultation: AMS Has provider been notified: Yes 08/22/20 Consult to Physician Routine Comment: SPOKE TO DR BHATT@1208 ([facility]) Consulting Provider: Fabio Monreal pharmaceutical development technician/MD group to consult: Consult to Gastroenterology For PEG tube placement Reason for consultation: peg tube placement Has provider been notified: Yes 08/27/20 10:36 Consult to Dietitian Routine Reason for Consult:: ok to start tube feeding by G-tube in 6 hours 08/30/20 14:05 Consult to Physician Routine Comment: Consulting Provider: Kari Holt pharmaceutical development technician/MD group to consult: surgery, Dr Holt Reason for consultation: peg placement Has provider been notified: Yes 09/01/20 Consult to Physician Routine Comment: Consulting Provider: Chet Lockhart pharmaceutical development technician/MD group to consult: Dr. Lockhart Reason for consultation: Acute hypoxic respiratory failure, aspiration pneumonia Has provider been notified: Yes DS: Admitting Diagnosis Admitting Diagnosis Admitting Diagnosis: Admitting diagnosis on 08/15/2020 had been found down for undetermined amount of time at home, acute respiratory failure secondary to COVID-19 pneumonia, encephalopathy, DS: Discharge Diagnosis Discharge Diagnosis (1) Comfort measures only status: Code(s): Z51.5 - Encounter for palliative care Status: Acute (2) Fungemia: Code(s): B49 - Unspecified mycosis Status: Acute (3) Completed stroke: Code(s): I63.9 - Cerebral infarction, unspecified Status: Acute (4) Acute respiratory failure with hypoxia: Code(s): J96.01 - Acute respiratory failure with hypoxia Status: Resolved (5) TONIA (acute kidney injury): Code(s): N17.9 - Acute kidney failure, unspecified Status: Acute (6) Acute encephalopathy: Code(s): G93.40 - Encephalopathy, unspecified Status: Acute Transfer Discharge Sum: Med Medications Active and Home Medications: Home Medications amlodipine 10 mg PO DAILY 08/15/20 [History Confirmed 09/06/20] rosuvastatin 20 mg PO DAILY 08/15/20 [History Confirmed 09/06/20] hydralazine 25 mg PO Q6H PRN #30 tablet 08/30/20 [Rx Confirmed 09/06/20] insulin aspart U-100 [Novolog U-100 Insulin aspart] 3 - 6 unit SUBCUT Q6HR #10 ml 08/30/20 [Rx Confirmed 09/06/20] insulin glargine [Lantus U-100 Insulin] 25 unit SUBCUT HS #10 ml 08/30/20 [Rx Confirmed 09/06/20] miconazole nitrate [Aloe Henderson Antifungal (micon)] 1 applic TOPICAL Q12HR 15 Days g 08/30/20 [Rx Confirmed 09/06/20] Transfer Discharge Sum: Hosp Hospital Course Hospital course: Ayaka Montoya is a 85 year old female with past medical history of dysphagia, esophagitis, stroke presented the ED after being found down for unknown amount of time, encephalopathic, COVID-19 pneumonia, acute respiratory failure requiring intubation. During the course of her stay in the hospital she also developed acute kidney injury, fungemia. Encephalopathy did not improve and MRI showed multiple strokes. Family decided to make the patient comfort measures patient was transferred to hospice care Time Spent with Patient Time attestation: Total time spent providing and/or coordinating transfer services: Total time spent: Greater than 30 minutes Exam Narrative: Exam Narrative: Lying in bed. Const: General: comfortable and no acute distress HENMT: Other: ETT in place Eyes: Sclera: sclerae normal Pupils: Equal, round and reactive pupils present Neck: Neck: supple Resp: Effort & Inspection: normal respiratory effort Auscultation: rales Other: Coarse breath sound
== END 2020-09-06 13:08 | disposition hospice, inpatient (51) | DRG 981 ==
LOC: ANHED 17:51 → ANH3MEDSUR 21:59 → ANHICU 09-01 01:50
PROVIDERS: Internal Medicine; Internal Medicine Critical Care Medicine; Internal Medicine Gastroenterology; Surgery; Admitting Provider Family Medicine; Emergency Provider Emergency Medicine; PCP Internal Medicine; Visit Provider Internal Medicine
PROC: 0DH63UZ Insertion of Feeding Device into Stomach, Percutaneous Approach (ICD-10-PCS; CPT 43246; principal; 2020-08-27 13:00)
PROC: 0DH60UZ Insertion of Feeding Device into Stomach, Open Approach (ICD-10-PCS; CPT 49440; principal; 2020-08-31 13:00)
DX: U07.1 COVID-19 (principal); J12.82 Pneumonia due to coronavirus disease 2019; J96.01 Acute respiratory failure with hypoxia; I63.9 Cerebral infarction, unspecified; J69.0 Pneumonitis due to inhalation of food and vomit; A41.9 Sepsis, unspecified organism; R65.20 Severe sepsis without septic shock; G93.49 Other encephalopathy; E87.0 Hyperosmolality and hypernatremia; N17.9 Acute kidney failure, unspecified; K94.23 Gastrostomy malfunction; B48.8 Other specified mycoses; K94.29 Other complications of gastrostomy; E86.0 Dehydration; T17.910A Gastric contents in respiratory tract, part unspecified causing asphyxiation, initial encounter; K21.00 Gastro-esophageal reflux disease with esophagitis, without bleeding; K31.89 Other diseases of stomach and duodenum; K44.9 Diaphragmatic hernia without obstruction or gangrene; D72.829 Elevated white blood cell count, unspecified; R74.01 Elevation of levels of liver transaminase levels; D47.3 Essential (hemorrhagic) thrombocythemia; E11.9 Type 2 diabetes mellitus without complications; R21 Rash and other nonspecific skin eruption; R82.90 Unspecified abnormal findings in urine; R13.10 Dysphagia, unspecified; Z66 Do not resuscitate; R33.9 Retention of urine, unspecified; D63.1 Anemia in chronic kidney disease; R31.9 Hematuria, unspecified; N13.9 Obstructive and reflux uropathy, unspecified; Z51.5 Encounter for palliative care
CPT/HCPCS: 36415; 36430; 36600; 43246; 49465; 51701; 70450; 70553; 71045; 74018; 76857; 80048; 80053; 80061; 80202; 81001; 82140; 82375; 82533; 82550; 82565; 82607; 82728; 82746; 82805; 82948; 83036; 83050; 83540; 83550; 83605; 83615; 83690; 83735; 84100; 84295; 84443; 84460; 84466; 84484; 85025; 85027; 85046; 85055; 85610; 85730; 86140; 86850; 86900; 86901; 86923; 87040; 87070; 87086; 87088; 87205; 87449; 87899; 92610; 93005; 93306; 93880; 94002; 94003; 94640; 96361; 96365; 96367; 96375; 97110; 97161; 97166; 97530; 97535; 99211; 99285; A9270; A9577; C9113; C9803; G0378; G0463; J0330; J0456; J0690; J0692; J0696; J1100; J1650; J1815; J1940; J1956; J2060; J2248; J2250; J2270; J2405; J2704; J2710; J3010; J3370; J3475; J3480; J7030; J7120; J7121; P9016; U0003; U0005

== ENCOUNTER 2020-09-06 13:09 | HOS | payer OTHER, MEDICARE, SELFPAY ==
[2020-09-06 13:25] VITALS: BMI 28.3
[2020-09-06] MEDS: LORazepam INJ (*CRX) 2 MG/ML VIAL 1 MG IV PUSH (14:45)
[2020-09-06 14:48] VITALS: PULSE 84; RESP 19
[2020-09-06] MEDS: HYDROmorphone HCL/PF (*CRX) 50 MG in SODIUM CHLORIDE 0.9% IV 95 ML IV CONT (14:48)
--- NOTE | 2020-09-06 19:12 | PM.IMHP ---
H&P: HPI History of Present Illness Date/Time: 09/06/20 19:12 Chief Complaint: dyspnea Narrative: Ayaka Montoya is a 85 year old female was admitted to acute care on August 15 after being found down in her apartment for an unknown amount of time. She had been feeling ill and not eating or drinking well for a couple of weeks. She tested positive for COVID-19 admission. She was treated with room vest severe and steroids. She required endotracheal intubation. She had encephalopathy. She had cerebral vascular disease with multiple small strokes. Because of her failure to awaken enough to wean from the ventilator her daughter who is also power of staff attorney opted for comfort care. She was extubated on September 05. She survived the night with comfort measures. Because of this she was admitted inpatient hospice service. At this point she is bed-bound and unresponsive unable to eat or drink or make her needs known. Review of Systems Review of Systems: ROS unobtainable: Yes unobtainable due to medical condition PMFSH Past Medical History Medical History Dysphagia Esophagitis Stroke Family History Family History Father No problems noted. Mother No problems noted. Social History Social History Smoking status: Never smoker Alcohol intake: never Substance use: never Gender identity (if verbalized by the patient): Female Spiritual care concerns: No Meds Home Medications and Allergies Home Medications Medication Instructions Recorded Confirmed Type amlodipine 10 mg PO DAILY 08/15/20 09/06/20 History rosuvastatin 20 mg PO DAILY 08/15/20 09/06/20 History hydralazine 25 mg PO Q6H PRN #30 tablet 08/30/20 09/06/20 Rx insulin aspart U-100 [Novolog 3 - 6 unit SUBCUT Q6HR #10 ml 08/30/20 09/06/20 Rx U-100 Insulin aspart] insulin glargine [Lantus U-100 25 unit SUBCUT HS #10 ml 08/30/20 09/06/20 Rx Insulin] miconazole nitrate [Aloe [place] 1 applic TOPICAL Q12HR 15 Days g 08/30/20 09/06/20 Rx Antifungal (micon)] Allergies Allergy/AdvReac Type Severity Reaction Status Date / Time Penicillins Allergy Hives Verified 09/06/20 13:23 Sulfa (Sulfonamide Allergy Hives Verified 09/06/20 13:23 Antibiotics) Vital Signs Vital Signs - 24 hr 09/06/20 14:48 Pulse Rate 84 Respiratory Rate 19 Exam Narrative: Exam Narrative: Sleeping deeply and unresponsive to touch or speech. Face without asymmetry Mucous membranes moist Neck no JVD Chest coarse breath sounds throughout Heart normal S1-S2 regular rate no audible murmur Abdomen hypoactive bowel sounds soft nontender no mass Extremities no edema cyanosis or clubbing Musculoskeletal symmetric tone Neurologic cranial nerves intact to inspection Assessment and Plan Assessment and plan (1) Palliative care by specialist: Code(s): Z51.5 - Encounter for palliative care Status: Acute Assessment and Plan: Meets general inpatient requirements due to uncontrolled dyspnea and restlessness requiring continuous IV narcotic infusion for control Hydromorphone 0.5 milligrams/hour and 1 mg IV every 2 hours p.r.n. for breakthrough symptoms Remainder of palliative regimen as ordered (2) Acute respiratory failure with hypoxia: Code(s): J96.01 - Acute respiratory failure with hypoxia Status: Resolved Assessment and Plan: (3) Acute encephalopathy: Code(s): G93.40 - Encephalopathy, unspecified Status: Acute (4) Pneumonia due to COVID-19 virus: Code(s): U07.1 - COVID-19; J12.82 - Pneumonia due to coronavirus disease 2019 Status: Resolved (5) Aspiration of gastric contents: Qualifiers: Encounter type: sequela Qualified Code(s): T17.910S - Gastric contents in respiratory tract, part unsp
--- NOTE | 2020-09-06 21:45 | PC.NURSE ---
2000 RECIEVED PT FROM ICU PER BED. FAMILY WITH PT.
[2020-09-07 05:43] VITALS: BP 126/63; PULSE 94; RESP 16; TEMP 36.9; O2SAT 91
[2020-09-07] MEDS: GLYCOPYRROLATE INJ (*SP) 0.2 MG/ML VIAL 0.1 MG IV PUSH ×4 (06:30→22:41)
[2020-09-07 14:58] VITALS: PULSE 94; RESP 16
[2020-09-07] MEDS: HYDROmorphone HCL/PF (*CRX) 50 MG in SODIUM CHLORIDE 0.9% IV 95 ML IV CONT (14:58)
--- NOTE | 2020-09-07 17:48 | PM.IMPN ---
Progress Note: A&P Assessment and Plan (1) Palliative care by specialist: Code(s): Z51.5 - Encounter for palliative care Status: Acute Assessment and Plan: Meets general inpatient requirements due to uncontrolled dyspnea and restlessness requiring continuous IV narcotic infusion for control Hydromorphone 0.5 milligrams/hour and 1 mg IV every 2 hours p.r.n. for breakthrough symptoms Remainder of palliative regimen as ordered (2) Acute respiratory failure with hypoxia: Code(s): J96.01 - Acute respiratory failure with hypoxia Status: Resolved (3) Acute encephalopathy: Code(s): G93.40 - Encephalopathy, unspecified Status: Acute (4) Pneumonia due to COVID-19 virus: Code(s): U07.1 - COVID-19; J12.82 - Pneumonia due to coronavirus disease 2019 Status: Resolved (5) Aspiration of gastric contents: Qualifiers: Encounter type: sequela Qualified Code(s): T17.910S - Gastric contents in respiratory tract, part unspecified causing asphyxiation, sequela Code(s): T17.910A - Gastric contents in respiratory tract, part unspecified causing asphyxiation, initial encounter Status: Acute (6) Esophagitis: Code(s): K20.90 - Esophagitis, unspecified without bleeding Status: Acute (7) Dysphagia: Qualifiers: Dysphagia type: unspecified Qualified Code(s): R13.10 - Dysphagia, unspecified Code(s): R13.10 - Dysphagia, unspecified Status: Acute (8) Diabetes mellitus: Qualifiers: Diabetes mellitus type: type 2 Diabetes mellitus residential insulin use: without rodent exterminator use Diabetes mellitus complication status: without complication Qualified Code(s): E11.9 - Type 2 diabetes mellitus without complications Code(s): E11.9 - Type 2 diabetes mellitus without complications Status: Chronic (9) Transaminitis: Code(s): R74.01 - Elevation of levels of liver transaminase levels Status: Acute (10) Acute renal failure: Qualifiers: Acute renal failure type: unspecified Qualified Code(s): N17.9 - Acute kidney failure, unspecified Code(s): N17.9 - Acute kidney failure, unspecified Status: Resolved (11) Hypernatremia: Code(s): E87.0 - Hyperosmolality and hypernatremia Status: Acute Subjective Date/time seen: 09/07/20 17:48 Interval history: Admitted 09/06 to inpatient hospice due to respiratory failure, sequelae of COVID-19 pneumonia. 09/07: Rested comfortably today. No PO intake. Review of Systems Review of Systems: ROS unobtainable: Yes unobtainable due to medical condition Exam Narrative: Exam Narrative: Sleeping but responds in nondirected fashion to touch or voice Face without asymmetry Mucous membranes moist Neck no JVD Chest coarse breath sounds throughout Heart normal S1-S2 regular rate no audible murmur Abdomen hypoactive bowel sounds soft nontender no mass Extremities no edema cyanosis or clubbing Musculoskeletal symmetric tone Neurologic cranial nerves intact to inspection Objective Data Vital Signs Vital Signs: Vital Signs - 24 hr 09/07/20 05:43 09/07/20 14:58 Temperature 98.5 F Pulse Rate 94 94 Respiratory Rate 16 16 Blood Pressure 126/63 Pulse Oximetry 91 Intake/Output Intake/Output: Intake & Output 09/04/20 09/05/20 09/06/20 09/07/20 23:59 23:59 23:59 23:59 Intake Total 56 Balance 56 Meds/Results Medications: Active Medications Generic Name Dose Route Start Last Admin Trade Name Freq PRN Reason Stop Dose Admin Artificial Tears 0 drop 09/06/20 14:00 Artificial Tears Op Soln 15 Ml Bottle EACH EYE Q12H PRN Dry Eye(s) Bisacodyl 10 mg 09/06/20 14:00 Bisacodyl 10 Mg Suppository RECTAL DAILY PRN Constipation Glycopyrrolate 0.1 mg 09/06/20 13:58 09/07/20 12:22 Glycopyrrolate Inj (*Sp) 0.2 Mg/Ml Vial IV PUSH 0.1 mg Q4H PRN Administration SECRETIONS Hydromor
[2020-09-07 18:02] VITALS: BP 150/57; PULSE 104; RESP 16; O2SAT 85; O2SAT 91
[2020-09-07 20:36] VITALS: BP 139/74; PULSE 99; RESP 10; TEMP 36.3; O2SAT 94
[2020-09-07 20:45] VITALS: O2SAT 94
[2020-09-08 04:42] VITALS: BP 149/56; PULSE 102; RESP 12; TEMP 37.8; O2SAT 97
[2020-09-08] MEDS: HYDROmorphone HCL INJ (*CRX) 1 MG/ML SYR IV PUSH (08:10)
[2020-09-08] MEDS: GLYCOPYRROLATE INJ (*SP) 0.2 MG/ML VIAL 0.1 MG IV PUSH ×4 (10:54→22:26)
[2020-09-08 10:55] VITALS: BP 148/71; PULSE 99; RESP 12; TEMP 37.3; O2SAT 98
--- NOTE | 2020-09-08 11:53 | PM.IMPN ---
Progress Note: A&P Assessment and Plan (1) Palliative care by specialist: Code(s): Z51.5 - Encounter for palliative care Status: Acute Assessment and Plan: Meets general inpatient requirements due to uncontrolled dyspnea and restlessness requiring continuous IV narcotic infusion for control Hydromorphone 0.5 milligrams/hour and 1 mg IV every 2 hours p.r.n. for breakthrough symptoms Remainder of palliative regimen as ordered D/w daughter and spouse at bedside (2) Acute respiratory failure with hypoxia: Code(s): J96.01 - Acute respiratory failure with hypoxia Status: Resolved (3) Acute encephalopathy: Code(s): G93.40 - Encephalopathy, unspecified Status: Acute (4) Pneumonia due to COVID-19 virus: Code(s): U07.1 - COVID-19; J12.82 - Pneumonia due to coronavirus disease 2019 Status: Resolved (5) Aspiration of gastric contents: Qualifiers: Encounter type: sequela Qualified Code(s): T17.910S - Gastric contents in respiratory tract, part unspecified causing asphyxiation, sequela Code(s): T17.910A - Gastric contents in respiratory tract, part unspecified causing asphyxiation, initial encounter Status: Acute (6) Esophagitis: Code(s): K20.90 - Esophagitis, unspecified without bleeding Status: Acute (7) Dysphagia: Qualifiers: Dysphagia type: unspecified Qualified Code(s): R13.10 - Dysphagia, unspecified Code(s): R13.10 - Dysphagia, unspecified Status: Acute (8) Diabetes mellitus: Qualifiers: Diabetes mellitus type: type 2 Diabetes mellitus nursing home insulin use: without intermediate school teacher use Diabetes mellitus complication status: without complication Qualified Code(s): E11.9 - Type 2 diabetes mellitus without complications Code(s): E11.9 - Type 2 diabetes mellitus without complications Status: Chronic (9) Transaminitis: Code(s): R74.01 - Elevation of levels of liver transaminase levels Status: Acute (10) Acute renal failure: Qualifiers: Acute renal failure type: unspecified Qualified Code(s): N17.9 - Acute kidney failure, unspecified Code(s): N17.9 - Acute kidney failure, unspecified Status: Resolved (11) Hypernatremia: Code(s): E87.0 - Hyperosmolality and hypernatremia Status: Acute Subjective Date/time seen: 09/08/20 11:53 Interval history: Admitted 09/06 to inpatient hospice due to respiratory failure, sequelae of COVID-19 pneumonia. 09/08: Resting comfortably today. No PO intake. Review of Systems Review of Systems: ROS unobtainable: Yes unobtainable due to medical condition Exam Narrative: Exam Narrative: Sleeping but responds in nondirected fashion to touch or voice Face without asymmetry Mucous membranes moist Neck no JVD Chest coarse breath sounds throughout Heart normal S1-S2 regular rate no audible murmur Abdomen hypoactive bowel sounds soft nontender no mass Extremities no edema cyanosis or clubbing Musculoskeletal symmetric tone Neurologic cranial nerves intact to inspection Objective Data Vital Signs Vital Signs: Vital Signs - 24 hr 09/07/20 14:58 09/07/20 18:02 09/07/20 20:36 Temperature 97.3 F L Pulse Rate 94 104 H 99 Respiratory Rate 16 16 10 L Blood Pressure 150/57 H 139/74 Pulse Oximetry 91 94 09/07/20 20:45 09/08/20 04:42 09/08/20 10:55 Temperature 100.1 F H 99.2 F Pulse Rate 102 H 99 Respiratory Rate 12 12 Blood Pressure 149/56 H 148/71 H Pulse Oximetry 94 97 98 Intake/Output Intake/Output: Intake & Output 09/05/20 09/06/20 09/07/20 09/08/20 23:59 23:59 23:59 23:59 Intake Total 56 0 Output Total 500 150 Balance -444 -150 Meds/Results Medications: Active Medications Generic Name Dose Route Start Last Admin Trade Name Freq PRN Reason Stop Dose Admin Artificial Tears 0 drop 09/06/20 14:00 Artificial Tears Op Soln 15 Ml Bottle EACH EYE Q12H
[2020-09-08] MEDS: ATROPINE SULFATE 1% OPHTH SOLN 5 ML BOTTLE 1 DROP SUBLINGUAL ×2 (12:49→17:26)
[2020-09-08] MEDS: LORazepam INJ (*CRX) 2 MG/ML VIAL 1 MG IV PUSH ×3 (14:30→22:26)
[2020-09-08] MEDS: HYDROmorphone HCL/PF (*CRX) 50 MG in SODIUM CHLORIDE 0.9% IV 95 ML IV CONT (17:26)
[2020-09-08 20:06] VITALS: O2SAT 98
[2020-09-08 22:00] VITALS: BP 116/57; PULSE 93; RESP 16; TEMP 36.8; O2SAT 96
[2020-09-09] MEDS: GLYCOPYRROLATE INJ (*SP) 0.2 MG/ML VIAL 0.1 MG IV PUSH ×6 (02:23→22:29)
[2020-09-09] MEDS: LORazepam INJ (*CRX) 2 MG/ML VIAL 1 MG IV PUSH ×6 (02:24→22:29)
[2020-09-09 11:04] VITALS: BP 141/79; PULSE 102; RESP 14; TEMP 38.1; O2SAT 94
[2020-09-09 13:30] VITALS: TEMP 37.2
--- NOTE | 2020-09-09 13:39 | PM.IMPN ---
Progress Note: A&P Assessment and Plan (1) Palliative care by specialist: Code(s): Z51.5 - Encounter for palliative care Status: Acute Assessment and Plan: Meets general inpatient requirements due to uncontrolled dyspnea and restlessness requiring continuous IV narcotic infusion for control Hydromorphone 0.5 milligrams/hour and 1 mg IV every 2 hours p.r.n. for breakthrough symptoms Remainder of palliative regimen as ordered D/w daughter and spouse at bedside (2) Acute respiratory failure with hypoxia: Code(s): J96.01 - Acute respiratory failure with hypoxia Status: Resolved (3) Acute encephalopathy: Code(s): G93.40 - Encephalopathy, unspecified Status: Acute (4) Pneumonia due to COVID-19 virus: Code(s): U07.1 - COVID-19; J12.82 - Pneumonia due to coronavirus disease 2019 Status: Resolved (5) Aspiration of gastric contents: Qualifiers: Encounter type: sequela Qualified Code(s): T17.910S - Gastric contents in respiratory tract, part unspecified causing asphyxiation, sequela Code(s): T17.910A - Gastric contents in respiratory tract, part unspecified causing asphyxiation, initial encounter Status: Acute (6) Esophagitis: Code(s): K20.90 - Esophagitis, unspecified without bleeding Status: Acute (7) Dysphagia: Qualifiers: Dysphagia type: unspecified Qualified Code(s): R13.10 - Dysphagia, unspecified Code(s): R13.10 - Dysphagia, unspecified Status: Acute (8) Diabetes mellitus: Qualifiers: Diabetes mellitus type: type 2 Diabetes mellitus skilled nursing insulin use: without skilled nursing use Diabetes mellitus complication status: without complication Qualified Code(s): E11.9 - Type 2 diabetes mellitus without complications Code(s): E11.9 - Type 2 diabetes mellitus without complications Status: Chronic (9) Transaminitis: Code(s): R74.01 - Elevation of levels of liver transaminase levels Status: Acute (10) Acute renal failure: Qualifiers: Acute renal failure type: unspecified Qualified Code(s): N17.9 - Acute kidney failure, unspecified Code(s): N17.9 - Acute kidney failure, unspecified Status: Resolved (11) Hypernatremia: Code(s): E87.0 - Hyperosmolality and hypernatremia Status: Acute Subjective Date/time seen: 09/09/20 13:39 Interval history: Admitted 09/06 to inpatient hospice due to respiratory failure, sequelae of COVID-19 pneumonia. 09/09: Sleeping all day. Review of Systems Review of Systems: ROS unobtainable: Yes unobtainable due to medical condition Exam Narrative: Exam Narrative: Sleeping but responds in nondirected fashion to touch or voice Face without asymmetry Mucous membranes moist Neck no JVD Chest coarse breath sounds throughout Heart normal S1-S2 regular rate no audible murmur Abdomen hypoactive bowel sounds soft nontender no mass Extremities no edema cyanosis or clubbing Musculoskeletal symmetric tone Neurologic cranial nerves intact to inspection Objective Data Vital Signs Vital Signs: Vital Signs - 24 hr 09/08/20 20:06 09/08/20 22:00 09/09/20 11:04 Temperature 98.3 F 100.6 F H Pulse Rate 93 102 H Respiratory Rate 16 14 Blood Pressure 116/57 L 141/79 H Pulse Oximetry 98 96 94 Intake/Output Intake/Output: Intake & Output 09/06/20 09/07/20 09/08/20 09/09/20 23:59 23:59 23:59 23:59 Intake Total 56 100 65 Output Total 500 150 300 Balance -365 -07 -904 Meds/Results Medications: Active Medications Generic Name Dose Route Start Last Admin Trade Name Freq PRN Reason Stop Dose Admin Artificial Tears 0 drop 09/06/20 14:00 Artificial Tears Op Soln 15 Ml Bottle EACH EYE Q12H PRN Dry Eye(s) Atropine Sulfate 1 drop 09/08/20 12:25 09/08/20 17:26 Atropine Sulfate 1% Ophth Soln 5 Ml Bottle SUBLINGUAL 1 drop Q4H PRN Administration Secretions Bisacod
[2020-09-09] MEDS: ATROPINE SULFATE 1% OPHTH SOLN 5 ML BOTTLE 1 DROP SUBLINGUAL ×3 (14:24→22:30)
[2020-09-09] MEDS: HYDROmorphone HCL/PF (*CRX) 50 MG in SODIUM CHLORIDE 0.9% IV 95 ML IV CONT (18:24)
[2020-09-09 19:00] VITALS: BP 142/65; PULSE 93; RESP 12; TEMP 37.4; O2SAT 94
[2020-09-09 20:00] VITALS: O2SAT 94
[2020-09-10] MEDS: GLYCOPYRROLATE INJ (*SP) 0.2 MG/ML VIAL 0.1 MG IV PUSH ×5 (02:51→20:43)
[2020-09-10] MEDS: ATROPINE SULFATE 1% OPHTH SOLN 5 ML BOTTLE 1 DROP SUBLINGUAL ×5 (02:52→20:42)
[2020-09-10] MEDS: LORazepam INJ (*CRX) 2 MG/ML VIAL 1 MG IV PUSH ×5 (02:52→20:43)
[2020-09-10 05:26] VITALS: BP 125/38; PULSE 98; RESP 16; TEMP 37.9; O2SAT 93
[2020-09-10 08:00] VITALS: O2SAT 91
[2020-09-10 14:00] VITALS: BP 155/67; PULSE 106; RESP 12; TEMP 37.9; O2SAT 90
[2020-09-10] MEDS: HYDROmorphone HCL/PF (*CRX) 50 MG in SODIUM CHLORIDE 0.9% IV 95 ML IV CONT (14:49)
--- NOTE | 2020-09-10 17:27 | PM.IMPN ---
Progress Note: A&P Assessment and Plan (1) Palliative care by specialist: Code(s): Z51.5 - Encounter for palliative care Status: Acute Assessment and Plan: Meets general inpatient requirements due to uncontrolled dyspnea and restlessness requiring continuous IV narcotic infusion for control Hydromorphone 0.5 milligrams/hour and 1 mg IV every 2 hours p.r.n. for breakthrough symptoms Remainder of palliative regimen as ordered D/w daughter and spouse at bedside (2) Acute respiratory failure with hypoxia: Code(s): J96.01 - Acute respiratory failure with hypoxia Status: Resolved (3) Acute encephalopathy: Code(s): G93.40 - Encephalopathy, unspecified Status: Acute (4) Pneumonia due to COVID-19 virus: Code(s): U07.1 - COVID-19; J12.82 - Pneumonia due to coronavirus disease 2019 Status: Resolved (5) Aspiration of gastric contents: Qualifiers: Encounter type: sequela Qualified Code(s): T17.910S - Gastric contents in respiratory tract, part unspecified causing asphyxiation, sequela Code(s): T17.910A - Gastric contents in respiratory tract, part unspecified causing asphyxiation, initial encounter Status: Acute (6) Esophagitis: Code(s): K20.90 - Esophagitis, unspecified without bleeding Status: Acute (7) Dysphagia: Qualifiers: Dysphagia type: unspecified Qualified Code(s): R13.10 - Dysphagia, unspecified Code(s): R13.10 - Dysphagia, unspecified Status: Acute (8) Diabetes mellitus: Qualifiers: Diabetes mellitus type: type 2 Diabetes mellitus jail insulin use: without jail use Diabetes mellitus complication status: without complication Qualified Code(s): E11.9 - Type 2 diabetes mellitus without complications Code(s): E11.9 - Type 2 diabetes mellitus without complications Status: Chronic (9) Transaminitis: Code(s): R74.01 - Elevation of levels of liver transaminase levels Status: Acute (10) Acute renal failure: Qualifiers: Acute renal failure type: unspecified Qualified Code(s): N17.9 - Acute kidney failure, unspecified Code(s): N17.9 - Acute kidney failure, unspecified Status: Resolved (11) Hypernatremia: Code(s): E87.0 - Hyperosmolality and hypernatremia Status: Acute Subjective Date/time seen: 09/10/20 17:27 Interval history: Admitted 09/06 to inpatient hospice due to respiratory failure, sequelae of COVID-19 pneumonia. 09/10: Choking during night. Required suction and atropine for secretion control. Family requests IV lorazepam every 4 hours. Review of Systems Review of Systems: ROS unobtainable: Yes unobtainable due to medical condition Exam Narrative: Exam Narrative: Sleeping but responds in nondirected fashion to touch or voice Face without asymmetry Mucous membranes moist Neck no JVD Chest coarse breath sounds throughout Heart normal S1-S2 regular rate no audible murmur Abdomen hypoactive bowel sounds soft nontender no mass Extremities no edema cyanosis or clubbing Musculoskeletal symmetric tone Neurologic cranial nerves intact to inspection Objective Data Vital Signs Vital Signs: Vital Signs - 24 hr 09/09/20 19:00 09/09/20 20:00 09/10/20 05:26 Temperature 99.3 F 100.3 F H Pulse Rate 93 98 Respiratory Rate 12 16 Blood Pressure 142/65 H 125/38 L Pulse Oximetry 94 94 93 09/10/20 08:00 09/10/20 14:00 Temperature 100.3 F H Pulse Rate 106 H Respiratory Rate 12 Blood Pressure 155/67 H Pulse Oximetry 91 90 Intake/Output Intake/Output: Intake & Output 09/07/20 09/08/20 09/09/20 09/10/20 23:59 23:59 23:59 23:59 Intake Total 56 100 165 120 Output Total 500 150 500 300 [facility] -444 -50 -335 -180 Meds/Results Medications: Active Medications Generic Name Dose Route Start Last Admin Trade Name Freq PRN Reason Stop Dose Admin Artificial Tears 0 drop 09/06/20 14:00
[2020-09-11] MEDS: LORazepam INJ (*CRX) 2 MG/ML VIAL 1 MG IV PUSH ×6 (00:50→22:50)
[2020-09-11] MEDS: GLYCOPYRROLATE INJ (*SP) 0.2 MG/ML VIAL 0.1 MG IV PUSH ×6 (00:50→22:50)
[2020-09-11] MEDS: ATROPINE SULFATE 1% OPHTH SOLN 5 ML BOTTLE 1 DROP SUBLINGUAL ×5 (00:51→22:50)
--- NOTE | 2020-09-11 10:15 | PC.NURSE ---
Called to room by patient's Steven. He stated patient was having difficulty clearing her secretions. Went to room. Patient moaning and increased congestion and difficulty with secretions noted. Suctioned patient nasally and obtained copious amount of thick secretions. Medicated patient with prn meds for comfort. Will continue to monitor.
[2020-09-11] MEDS: HYDROmorphone HCL INJ (*CRX) 1 MG/ML SYR IV PUSH (10:31)
[2020-09-11 14:00] VITALS: BP 125/50; PULSE 107; RESP 12; TEMP 37.3; O2SAT 93
[2020-09-11 14:40] VITALS: PULSE 106; RESP 12
[2020-09-11] MEDS: HYDROmorphone HCL/PF (*CRX) 50 MG in SODIUM CHLORIDE 0.9% IV 95 ML IV CONT (14:40)
[2020-09-11 22:59] VITALS: BP 123/60; PULSE 94; RESP 16; TEMP 37.1; O2SAT 96
[2020-09-12] MEDS: LORazepam INJ (*CRX) 2 MG/ML VIAL 1 MG IV PUSH ×5 (04:13→22:55)
[2020-09-12] MEDS: GLYCOPYRROLATE INJ (*SP) 0.2 MG/ML VIAL 0.1 MG IV PUSH ×4 (04:13→22:55)
[2020-09-12] MEDS: ATROPINE SULFATE 1% OPHTH SOLN 5 ML BOTTLE 1 DROP SUBLINGUAL ×3 (04:14→18:38)
[2020-09-12 09:47] VITALS: BP 133/51; PULSE 92; RESP 8; TEMP 36.5; O2SAT 92
--- NOTE | 2020-09-12 17:33 | PM.IMPN ---
Progress Note: A&P Assessment and Plan (1) Palliative care by specialist: Code(s): Z51.5 - Encounter for palliative care Status: Acute Assessment and Plan: Meets general inpatient requirements due to uncontrolled dyspnea and restlessness requiring continuous IV narcotic infusion for control Hydromorphone 0.5 milligrams/hour and 1 mg IV every 2 hours p.r.n. for breakthrough symptoms Remainder of palliative regimen as ordered D/w daughter and spouse at bedside (2) Acute respiratory failure with hypoxia: Code(s): J96.01 - Acute respiratory failure with hypoxia Status: Resolved (3) Acute encephalopathy: Code(s): G93.40 - Encephalopathy, unspecified Status: Acute (4) Pneumonia due to COVID-19 virus: Code(s): U07.1 - COVID-19; J12.82 - Pneumonia due to coronavirus disease 2019 Status: Resolved (5) Aspiration of gastric contents: Qualifiers: Encounter type: sequela Qualified Code(s): T17.910S - Gastric contents in respiratory tract, part unspecified causing asphyxiation, sequela Code(s): T17.910A - Gastric contents in respiratory tract, part unspecified causing asphyxiation, initial encounter Status: Acute (6) Esophagitis: Code(s): K20.90 - Esophagitis, unspecified without bleeding Status: Acute (7) Dysphagia: Qualifiers: Dysphagia type: unspecified Qualified Code(s): R13.10 - Dysphagia, unspecified Code(s): R13.10 - Dysphagia, unspecified Status: Acute (8) Diabetes mellitus: Qualifiers: Diabetes mellitus complication status: without complication Diabetes mellitus custodial insulin use: without custodial use Diabetes mellitus type: type 2 Qualified Code(s): E11.9 - Type 2 diabetes mellitus without complications Code(s): E11.9 - Type 2 diabetes mellitus without complications Status: Chronic (9) Transaminitis: Code(s): R74.01 - Elevation of levels of liver transaminase levels Status: Acute (10) Acute renal failure: Qualifiers: Acute renal failure type: unspecified Qualified Code(s): N17.9 - Acute kidney failure, unspecified Code(s): N17.9 - Acute kidney failure, unspecified Status: Resolved (11) Hypernatremia: Code(s): E87.0 - Hyperosmolality and hypernatremia Status: Acute (12) Completed stroke: Code(s): I63.9 - Cerebral infarction, unspecified Status: Acute Subjective Date/time seen: 09/12/20 17:33 Interval history: Admitted 09/06 to inpatient hospice due to respiratory failure, sequelae of COVID-19 pneumonia. 3: Remains asleep and comfortable. Daughter and spouse at bedside. Review of Systems Review of Systems: ROS unobtainable: Yes unobtainable due to medical condition Exam Narrative: Exam Narrative: Sleeping and unresponsive to verbal or tactile stimuli Face without asymmetry Mucous membranes moist Neck no JVD Chest coarse breath sounds throughout Heart normal S1-S2 regular rate no audible murmur Abdomen hypoactive bowel sounds soft nontender no mass Extremities no edema cyanosis or clubbing Musculoskeletal symmetric tone Neurologic cranial nerves intact to inspection Objective Data Vital Signs Vital Signs: Vital Signs - 24 hr 09/11/20 22:59 09/12/20 09:47 Temperature 98.7 F 97.7 F Pulse Rate 94 92 Respiratory Rate 16 8 L Blood Pressure 123/60 133/51 L Pulse Oximetry 96 92 Intake/Output Intake/Output: Intake & Output 09/09/20 09/10/20 09/11/20 09/12/20 23:59 23:59 23:59 23:59 Intake Total 165 120 100 Output Total 500 650 375 Balance -876 -739 -254 Meds/Results Medications: Active Medications Generic Name Dose Route Start Last Admin Trade Name Freq PRN Reason Stop Dose Admin Artificial Tears 0 drop 09/06/20 14:00 Artificial Tears Op Soln 15 Ml Bottle EACH EYE Q12H PRN Dry Eye(s) Atropine Sulfate 1 drop 09/08/20 12:25 09/12/20 09:21 A
[2020-09-12 18:24] VITALS: PULSE 92; RESP 8
[2020-09-12] MEDS: HYDROmorphone HCL/PF (*CRX) 50 MG in SODIUM CHLORIDE 0.9% IV 95 ML IV CONT (18:24)
[2020-09-12] MEDS: HYDROmorphone HCL INJ (*CRX) 1 MG/ML SYR IV PUSH (18:42)
[2020-09-12 22:00] VITALS: BP 130/54; PULSE 89; RESP 10; TEMP 36.6; O2SAT 91
[2020-09-13] MEDS: LORazepam INJ (*CRX) 2 MG/ML VIAL 1 MG IV PUSH ×5 (03:07→20:45)
[2020-09-13] MEDS: GLYCOPYRROLATE INJ (*SP) 0.2 MG/ML VIAL 0.1 MG IV PUSH ×5 (03:08→20:45)
[2020-09-13] MEDS: ATROPINE SULFATE 1% OPHTH SOLN 5 ML BOTTLE 1 DROP SUBLINGUAL ×5 (03:08→20:45)
[2020-09-13 07:00] VITALS: PULSE 89; O2SAT 93
[2020-09-13 14:00] VITALS: BP 136/60; PULSE 80; RESP 12; TEMP 36; O2SAT 98
[2020-09-13] MEDS: HYDROmorphone HCL/PF (*CRX) 50 MG in SODIUM CHLORIDE 0.9% IV 95 ML IV CONT (14:43)
[2020-09-13 20:00] VITALS: BP 133/57; PULSE 79; RESP 10; TEMP 36.7; O2SAT 96
--- NOTE | 2020-09-13 21:57 | PM.IMPN ---
Progress Note: A&P Assessment and Plan (1) Palliative care by specialist: Code(s): Z51.5 - Encounter for palliative care Status: Acute Assessment and Plan: Meets general inpatient requirements due to uncontrolled dyspnea and restlessness requiring continuous IV narcotic infusion for control Hydromorphone 0.5 milligrams/hour and 1 mg IV every 2 hours p.r.n. for breakthrough symptoms Remainder of palliative regimen as ordered Too unstable for transfer D/w daughter and granddaughter at bedside (2) Acute respiratory failure with hypoxia: Code(s): J96.01 - Acute respiratory failure with hypoxia Status: Resolved (3) Acute encephalopathy: Code(s): G93.40 - Encephalopathy, unspecified Status: Acute (4) Pneumonia due to COVID-19 virus: Code(s): U07.1 - COVID-19; J12.82 - Pneumonia due to coronavirus disease 2019 Status: Resolved (5) Aspiration of gastric contents: Qualifiers: Encounter type: sequela Qualified Code(s): T17.910S - Gastric contents in respiratory tract, part unspecified causing asphyxiation, sequela Code(s): T17.910A - Gastric contents in respiratory tract, part unspecified causing asphyxiation, initial encounter Status: Acute (6) Esophagitis: Code(s): K20.90 - Esophagitis, unspecified without bleeding Status: Acute (7) Dysphagia: Qualifiers: Dysphagia type: unspecified Qualified Code(s): R13.10 - Dysphagia, unspecified Code(s): R13.10 - Dysphagia, unspecified Status: Acute (8) Diabetes mellitus: Qualifiers: Diabetes mellitus type: type 2 Diabetes mellitus correction insulin use: without correction use Diabetes mellitus complication status: without complication Qualified Code(s): E11.9 - Type 2 diabetes mellitus without complications Code(s): E11.9 - Type 2 diabetes mellitus without complications Status: Chronic (9) Transaminitis: Code(s): R74.01 - Elevation of levels of liver transaminase levels Status: Acute (10) Acute renal failure: Qualifiers: Acute renal failure type: unspecified Qualified Code(s): N17.9 - Acute kidney failure, unspecified Code(s): N17.9 - Acute kidney failure, unspecified Status: Resolved (11) Hypernatremia: Code(s): E87.0 - Hyperosmolality and hypernatremia Status: Acute (12) Completed stroke: Code(s): I63.9 - Cerebral infarction, unspecified Status: Acute Subjective Date/time seen: 09/13/20 21:57 Interval history: Admitted 09/06 to inpatient hospice due to respiratory failure, sequelae of COVID-19 pneumonia. 3/4: Remains asleep and comfortable. Daughter and granddaughter at bedside. Review of Systems Review of Systems: ROS unobtainable: Yes unobtainable due to medical condition Exam Narrative: Exam Narrative: Sleeping and unresponsive to verbal or tactile stimuli Face without asymmetry Mucous membranes moist Neck no JVD Chest coarse breath sounds throughout Heart normal S1-S2 regular rate no audible murmur Abdomen hypoactive bowel sounds soft nontender no mass Extremities no edema cyanosis or clubbing Musculoskeletal symmetric tone Neurologic cranial nerves intact to inspection Objective Data Vital Signs Vital Signs: Vital Signs - 24 hr 09/12/20 22:00 09/13/20 07:00 09/13/20 14:00 Temperature 97.9 F 96.8 F L Pulse Rate 89 89 80 Respiratory Rate 10 L 12 Blood Pressure 130/54 L 136/60 Pulse Oximetry 91 93 98 09/13/20 20:00 Temperature 98.1 F Pulse Rate 79 Respiratory Rate 10 L Blood Pressure 133/57 L Pulse Oximetry 96 Intake/Output Intake/Output: Intake & Output 09/10/20 09/11/20 09/12/20 09/13/20 23:59 23:59 23:59 23:59 Intake Total 120 100 100 30 Output Total 650 375 125 Balance -530 -275 100 -95 Meds/Results Medications: Active Medications Generic Name Dose Route Start Last Admin Trade Name Freq PRN Reason Stop Dos
[2020-09-14] MEDS: LORazepam INJ (*CRX) 2 MG/ML VIAL 1 MG IV PUSH ×5 (01:35→21:05)
[2020-09-14] MEDS: GLYCOPYRROLATE INJ (*SP) 0.2 MG/ML VIAL 0.1 MG IV PUSH ×5 (01:35→21:05)
[2020-09-14] MEDS: ATROPINE SULFATE 1% OPHTH SOLN 5 ML BOTTLE 1 DROP SUBLINGUAL ×5 (01:35→21:05)
[2020-09-14 09:33] VITALS: PULSE 85; RESP 16; O2SAT 91
[2020-09-14 09:57] VITALS: BP 136/63; PULSE 86; RESP 8; TEMP 36.7; O2SAT 99
[2020-09-14 14:00] VITALS: BP 127/56; PULSE 90; RESP 12; TEMP 36.7; O2SAT 93
[2020-09-14] MEDS: HYDROmorphone HCL/PF (*CRX) 50 MG in SODIUM CHLORIDE 0.9% IV 95 ML IV CONT (14:33)
--- NOTE | 2020-09-14 18:17 | PM.IMPN ---
Progress Note: A&P Assessment and Plan (1) Palliative care by specialist: Code(s): Z51.5 - Encounter for palliative care Status: Acute Assessment and Plan: Meets general inpatient requirements due to uncontrolled dyspnea and restlessness requiring continuous IV narcotic infusion for control Hydromorphone 0.5 milligrams/hour and 1 mg IV every 2 hours p.r.n. for breakthrough symptoms Remainder of palliative regimen as ordered Too unstable for transfer D/w daughter and granddaughter at bedside (2) Acute respiratory failure with hypoxia: Code(s): J96.01 - Acute respiratory failure with hypoxia Status: Resolved (3) Acute encephalopathy: Code(s): G93.40 - Encephalopathy, unspecified Status: Acute (4) Pneumonia due to COVID-19 virus: Code(s): U07.1 - COVID-19; J12.82 - Pneumonia due to coronavirus disease 2019 Status: Resolved (5) Aspiration of gastric contents: Qualifiers: Encounter type: sequela Qualified Code(s): T17.910S - Gastric contents in respiratory tract, part unspecified causing asphyxiation, sequela Code(s): T17.910A - Gastric contents in respiratory tract, part unspecified causing asphyxiation, initial encounter Status: Acute (6) Esophagitis: Code(s): K20.90 - Esophagitis, unspecified without bleeding Status: Acute (7) Dysphagia: Qualifiers: Dysphagia type: unspecified Qualified Code(s): R13.10 - Dysphagia, unspecified Code(s): R13.10 - Dysphagia, unspecified Status: Acute (8) Diabetes mellitus: Qualifiers: Diabetes mellitus type: type 2 Diabetes mellitus prison insulin use: without prison use Diabetes mellitus complication status: without complication Qualified Code(s): E11.9 - Type 2 diabetes mellitus without complications Code(s): E11.9 - Type 2 diabetes mellitus without complications Status: Chronic (9) Transaminitis: Code(s): R74.01 - Elevation of levels of liver transaminase levels Status: Acute (10) Acute renal failure: Qualifiers: Acute renal failure type: unspecified Qualified Code(s): N17.9 - Acute kidney failure, unspecified Code(s): N17.9 - Acute kidney failure, unspecified Status: Resolved (11) Hypernatremia: Code(s): E87.0 - Hyperosmolality and hypernatremia Status: Acute (12) Completed stroke: Code(s): I63.9 - Cerebral infarction, unspecified Status: Acute Subjective Date/time seen: 09/14/20 18:17 Interval history: Admitted 09/06 to inpatient hospice due to respiratory failure, sequelae of COVID-19 pneumonia. 09/14: Remains asleep and comfortable. Daughter at bedside. Review of Systems Review of Systems: ROS unobtainable: Yes unobtainable due to medical condition Exam Narrative: Exam Narrative: Sleeping and unresponsive to verbal or tactile stimuli Face without asymmetry Mucous membranes moist Neck no JVD Chest coarse breath sounds throughout Heart normal S1-S2 regular rate no audible murmur Abdomen hypoactive bowel sounds soft nontender no mass Extremities no edema cyanosis or clubbing Musculoskeletal symmetric tone Neurologic cranial nerves intact to inspection Objective Data Vital Signs Vital Signs: Vital Signs - 24 hr 09/13/20 20:00 09/14/20 09:33 09/14/20 09:57 Temperature 98.1 F 98.0 F Pulse Rate 79 85 86 Respiratory Rate 10 L 16 8 L Blood Pressure 133/57 L 136/63 Pulse Oximetry 96 91 99 09/14/20 14:00 Temperature 98.0 F Pulse Rate 90 Respiratory Rate 12 Blood Pressure 127/56 L Pulse Oximetry 93 Intake/Output Intake/Output: Intake & Output 09/11/20 09/12/20 09/13/20 09/14/20 23:59 23:59 23:59 23:59 Intake Total 100 100 30 20 Output Total 375 125 125 Balance -275 100 -95 -105 Meds/Results Medications: Active Medications Generic Name Dose Route Start Last Admin Trade Name Freq PRN Reason Stop Dose Admin Artificial
[2020-09-14 19:57] VITALS: BP 134/63; PULSE 82; RESP 20; TEMP 36.5; O2SAT 94
[2020-09-14 20:34] VITALS: PULSE 83; O2SAT 91
[2020-09-15] MEDS: ATROPINE SULFATE 1% OPHTH SOLN 5 ML BOTTLE 1 DROP SUBLINGUAL ×6 (01:04→21:24)
[2020-09-15] MEDS: LORazepam INJ (*CRX) 2 MG/ML VIAL 1 MG IV PUSH ×6 (01:05→21:23)
[2020-09-15] MEDS: GLYCOPYRROLATE INJ (*SP) 0.2 MG/ML VIAL 0.1 MG IV PUSH ×6 (01:05→21:24)
--- NOTE | 2020-09-15 01:20 | ADMGEN ---
This patient, Ayaka Montoya, was admitted to Medical Room [facility]- at 0115. Patient/family oriented to hospital policies and general routines including ID bracelet, bed and alarms, visiting hours, pain management, procedures, bathroom and other care routines, personal items, smoking policy, room service/diet, and visiting hours. Information on how to activate the Rapid Response Team has been discussed. Patient/Family are encouraged to report perceived risks to care and to ask questions if they do not understand what they are told or what they should do.
[2020-09-15 09:00] VITALS: BP 125/46; PULSE 78; RESP 19; TEMP 36.9; O2SAT 96
[2020-09-15 14:45] VITALS: PULSE 83; RESP 20
[2020-09-15] MEDS: HYDROmorphone HCL/PF (*CRX) 50 MG in SODIUM CHLORIDE 0.9% IV 95 ML IV CONT (14:45)
--- NOTE | 2020-09-15 18:23 | PM.IMPN ---
Progress Note: A&P Assessment and Plan (1) Palliative care by specialist: Code(s): Z51.5 - Encounter for palliative care Status: Acute Assessment and Plan: Meets general inpatient requirements due to uncontrolled dyspnea and restlessness requiring continuous IV narcotic infusion for control Hydromorphone 0.5 milligrams/hour and 1 mg IV every 2 hours p.r.n. for breakthrough symptoms Remainder of palliative regimen as ordered Too unstable for transfer D/w daughter and spouse at bedside (2) Acute respiratory failure with hypoxia: Code(s): J96.01 - Acute respiratory failure with hypoxia Status: Resolved (3) Acute encephalopathy: Code(s): G93.40 - Encephalopathy, unspecified Status: Acute (4) Pneumonia due to COVID-19 virus: Code(s): U07.1 - COVID-19; J12.82 - Pneumonia due to coronavirus disease 2019 Status: Resolved (5) Aspiration of gastric contents: Qualifiers: Encounter type: sequela Qualified Code(s): T17.910S - Gastric contents in respiratory tract, part unspecified causing asphyxiation, sequela Code(s): T17.910A - Gastric contents in respiratory tract, part unspecified causing asphyxiation, initial encounter Status: Acute (6) Esophagitis: Code(s): K20.90 - Esophagitis, unspecified without bleeding Status: Acute (7) Dysphagia: Qualifiers: Dysphagia type: unspecified Qualified Code(s): R13.10 - Dysphagia, unspecified Code(s): R13.10 - Dysphagia, unspecified Status: Acute (8) Diabetes mellitus: Qualifiers: Diabetes mellitus type: type 2 Diabetes mellitus usp insulin use: without intermodal customer service use Diabetes mellitus complication status: without complication Qualified Code(s): E11.9 - Type 2 diabetes mellitus without complications Code(s): E11.9 - Type 2 diabetes mellitus without complications Status: Chronic (9) Transaminitis: Code(s): R74.01 - Elevation of levels of liver transaminase levels Status: Acute (10) Acute renal failure: Qualifiers: Acute renal failure type: unspecified Qualified Code(s): N17.9 - Acute kidney failure, unspecified Code(s): N17.9 - Acute kidney failure, unspecified Status: Resolved (11) Hypernatremia: Code(s): E87.0 - Hyperosmolality and hypernatremia Status: Acute (12) Completed stroke: Code(s): I63.9 - Cerebral infarction, unspecified Status: Acute Subjective Date/time seen: 09/15/20 18:23 Interval history: Admitted 09/06 to inpatient hospice due to respiratory failure, sequelae of COVID-19 pneumonia. /6: Remains asleep and comfortable. Daughter and spouse at bedside. Review of Systems Review of Systems: ROS unobtainable: Yes unobtainable due to medical condition Exam Narrative: Exam Narrative: Sleeping and unresponsive to verbal or tactile stimuli Face without asymmetry Mucous membranes moist Neck no JVD Chest coarse breath sounds throughout Heart normal S1-S2 regular rate no audible murmur Abdomen hypoactive bowel sounds soft nontender no mass Extremities no edema cyanosis or clubbing Musculoskeletal symmetric tone Neurologic cranial nerves intact to inspection Objective Data Vital Signs Vital Signs: Vital Signs - 24 hr 09/14/20 19:57 09/14/20 20:34 09/15/20 09:00 Temperature 97.7 F 98.4 F Pulse Rate 82 83 78 Respiratory Rate 20 19 Blood Pressure 134/63 125/46 L Pulse Oximetry 94 91 96 09/15/20 14:45 Temperature Pulse Rate 83 Respiratory Rate 20 Blood Pressure Pulse Oximetry Intake/Output Intake/Output: Intake & Output 09/12/20 09/13/20 09/14/20 09/15/20 23:59 23:59 23:59 23:59 Intake Total 100 30 20 100 Output Total 125 200 Balance 100 -95 -180 100 Meds/Results Medications: Active Medications Generic Name Dose Route Start Last Admin Trade Name Freq PRN Reason Stop Dose Admin Artificial Tears 0 drop 09/06/
[2020-09-15 20:00] VITALS: BP 120/47; PULSE 78; RESP 16; TEMP 36.2; O2SAT 95
[2020-09-16] MEDS: LORazepam INJ (*CRX) 2 MG/ML VIAL 1 MG IV PUSH ×6 (01:32→22:46)
[2020-09-16] MEDS: ATROPINE SULFATE 1% OPHTH SOLN 5 ML BOTTLE 1 DROP SUBLINGUAL ×6 (01:32→22:47)
[2020-09-16] MEDS: GLYCOPYRROLATE INJ (*SP) 0.2 MG/ML VIAL 0.1 MG IV PUSH ×6 (01:33→22:46)
[2020-09-16 08:00] VITALS: O2SAT 95
[2020-09-16 14:00] VITALS: BP 126/49; PULSE 79; RESP 8; TEMP 36.7; O2SAT 96
[2020-09-16 17:52] VITALS: PULSE 79; RESP 8
[2020-09-16] MEDS: HYDROmorphone HCL/PF (*CRX) 50 MG in SODIUM CHLORIDE 0.9% IV 95 ML IV CONT (17:52)
--- NOTE | 2020-09-16 20:38 | PM.IMPN ---
Progress Note: A&P Assessment and Plan (1) Palliative care by specialist: Code(s): Z51.5 - Encounter for palliative care Status: Acute Assessment and Plan: Meets general inpatient requirements due to uncontrolled dyspnea and restlessness requiring continuous IV narcotic infusion for control Hydromorphone 0.5 milligrams/hour and 1 mg IV every 2 hours p.r.n. for breakthrough symptoms Remainder of palliative regimen as ordered Too unstable for transfer D/w daughter at bedside (2) Acute respiratory failure with hypoxia: Code(s): J96.01 - Acute respiratory failure with hypoxia Status: Resolved (3) Acute encephalopathy: Code(s): G93.40 - Encephalopathy, unspecified Status: Acute (4) Pneumonia due to COVID-19 virus: Code(s): U07.1 - COVID-19; J12.82 - Pneumonia due to coronavirus disease 2019 Status: Resolved (5) Aspiration of gastric contents: Qualifiers: Encounter type: sequela Qualified Code(s): T17.910S - Gastric contents in respiratory tract, part unspecified causing asphyxiation, sequela Code(s): T17.910A - Gastric contents in respiratory tract, part unspecified causing asphyxiation, initial encounter Status: Acute (6) Esophagitis: Code(s): K20.90 - Esophagitis, unspecified without bleeding Status: Acute (7) Dysphagia: Qualifiers: Dysphagia type: unspecified Qualified Code(s): R13.10 - Dysphagia, unspecified Code(s): R13.10 - Dysphagia, unspecified Status: Acute (8) Diabetes mellitus: Qualifiers: Diabetes mellitus type: type 2 Diabetes mellitus custodial insulin use: without custodial use Diabetes mellitus complication status: without complication Qualified Code(s): E11.9 - Type 2 diabetes mellitus without complications Code(s): E11.9 - Type 2 diabetes mellitus without complications Status: Chronic (9) Transaminitis: Code(s): R74.01 - Elevation of levels of liver transaminase levels Status: Acute (10) Acute renal failure: Qualifiers: Acute renal failure type: unspecified Qualified Code(s): N17.9 - Acute kidney failure, unspecified Code(s): N17.9 - Acute kidney failure, unspecified Status: Resolved (11) Hypernatremia: Code(s): E87.0 - Hyperosmolality and hypernatremia Status: Acute (12) Completed stroke: Code(s): I63.9 - Cerebral infarction, unspecified Status: Acute Subjective Date/time seen: 09/16/20 20:38 Interval history: Admitted 09/06 to inpatient hospice due to respiratory failure, sequelae of COVID-19 pneumonia. 09/16: Remains asleep and comfortable. Daughter at bedside. Review of Systems Review of Systems: ROS unobtainable: Yes unobtainable due to medical condition Exam Narrative: Exam Narrative: Sleeping and unresponsive to verbal or tactile stimuli Face without asymmetry Mucous membranes moist Neck no JVD Chest coarse breath sounds throughout Heart normal S1-S2 regular rate no audible murmur Abdomen hypoactive bowel sounds soft nontender no mass Extremities no edema cyanosis or clubbing Musculoskeletal symmetric tone Neurologic cranial nerves intact to inspection Objective Data Vital Signs Vital Signs: Vital Signs - 24 hr 09/16/20 08:00 09/16/20 14:00 09/16/20 17:52 Temperature 98.1 F Pulse Rate 79 79 Respiratory Rate 8 L 8 L Blood Pressure 126/49 L Pulse Oximetry 95 96 Intake/Output Intake/Output: Intake & Output 09/13/20 09/14/20 09/15/20 09/16/20 23:59 23:59 23:59 23:59 Intake Total 30 20 100 100 Output Total 125 200 100 Balance -95 -180 100 0 Meds/Results Medications: Active Medications Generic Name Dose Route Start Last Admin Trade Name Freq PRN Reason Stop Dose Admin Artificial Tears 0 drop 09/06/20 14:00 09/14/20 12:31 Artificial Tears Op Soln 15 Ml Bottle EACH EYE 2 drop Q12H PRN Administration Dry Eye(s) Atropine
[2020-09-16 20:57] VITALS: BP 124/52; PULSE 77; RESP 12; TEMP 36.2; O2SAT 96
[2020-09-17] MEDS: GLYCOPYRROLATE INJ (*SP) 0.2 MG/ML VIAL 0.1 MG IV PUSH ×3 (03:47→20:03)
[2020-09-17] MEDS: ATROPINE SULFATE 1% OPHTH SOLN 5 ML BOTTLE 1 DROP SUBLINGUAL ×2 (03:48→20:03)
[2020-09-17] MEDS: LORazepam INJ (*CRX) 2 MG/ML VIAL 1 MG IV PUSH (03:48)
[2020-09-17 08:00] VITALS: BP 132/57; PULSE 85; RESP 12; TEMP 36.9; O2SAT 98
[2020-09-17] MEDS: HYDROmorphone HCL/PF (*CRX) 50 MG in SODIUM CHLORIDE 0.9% IV 95 ML IV CONT (10:14)
[2020-09-17 20:00] VITALS: BP 119/53; PULSE 92; RESP 10; TEMP 36.4; O2SAT 89
--- NOTE | 2020-09-17 20:46 | PM.IMPN ---
Progress Note: A&P Assessment and Plan (1) Palliative care by specialist: Code(s): Z51.5 - Encounter for palliative care Status: Acute Assessment and Plan: Meets general inpatient requirements due to uncontrolled dyspnea and restlessness requiring continuous IV narcotic infusion for control Hydromorphone 0.5 milligrams/hour and 1 mg IV every 2 hours p.r.n. for breakthrough symptoms Remainder of palliative regimen as ordered Too unstable for transfer D/w daughter at bedside (2) Acute respiratory failure with hypoxia: Code(s): J96.01 - Acute respiratory failure with hypoxia Status: Resolved (3) Acute encephalopathy: Code(s): G93.40 - Encephalopathy, unspecified Status: Acute (4) Pneumonia due to COVID-19 virus: Code(s): U07.1 - COVID-19; J12.82 - Pneumonia due to coronavirus disease 2019 Status: Resolved (5) Aspiration of gastric contents: Qualifiers: Encounter type: sequela Qualified Code(s): T17.910S - Gastric contents in respiratory tract, part unspecified causing asphyxiation, sequela Code(s): T17.910A - Gastric contents in respiratory tract, part unspecified causing asphyxiation, initial encounter Status: Acute (6) Esophagitis: Code(s): K20.90 - Esophagitis, unspecified without bleeding Status: Acute (7) Dysphagia: Qualifiers: Dysphagia type: unspecified Qualified Code(s): R13.10 - Dysphagia, unspecified Code(s): R13.10 - Dysphagia, unspecified Status: Acute (8) Diabetes mellitus: Qualifiers: Diabetes mellitus type: type 2 Diabetes mellitus senior living insulin use: without senior living use Diabetes mellitus complication status: without complication Qualified Code(s): E11.9 - Type 2 diabetes mellitus without complications Code(s): E11.9 - Type 2 diabetes mellitus without complications Status: Chronic (9) Transaminitis: Code(s): R74.01 - Elevation of levels of liver transaminase levels Status: Acute (10) Acute renal failure: Qualifiers: Acute renal failure type: unspecified Qualified Code(s): N17.9 - Acute kidney failure, unspecified Code(s): N17.9 - Acute kidney failure, unspecified Status: Resolved (11) Hypernatremia: Code(s): E87.0 - Hyperosmolality and hypernatremia Status: Acute (12) Completed stroke: Code(s): I63.9 - Cerebral infarction, unspecified Status: Acute Subjective Date/time seen: 09/17/20 20:46 Interval history: Admitted 09/06 to inpatient hospice due to respiratory failure, sequelae of COVID-19 pneumonia. 09/17: Eyes open intermittently. Daughter at bedside. Review of Systems Review of Systems: ROS unobtainable: Yes unobtainable due to medical condition Exam Narrative: Exam Narrative: Sleeping and unresponsive to verbal or tactile stimuli Face without asymmetry Mucous membranes moist Neck no JVD Chest coarse breath sounds throughout Heart normal S1-S2 regular rate no audible murmur Abdomen hypoactive bowel sounds soft nontender no mass Extremities no edema cyanosis or clubbing Musculoskeletal symmetric tone Neurologic cranial nerves intact to inspection Objective Data Vital Signs Vital Signs: Vital Signs - 24 hr 09/16/20 20:57 09/17/20 08:00 Temperature 97.2 F L 98.5 F Pulse Rate 77 85 Respiratory Rate 12 12 Blood Pressure 124/52 L 132/57 L Pulse Oximetry 96 98 Intake/Output Intake/Output: Intake & Output 09/14/20 09/15/20 09/16/20 09/17/20 23:59 23:59 23:59 23:59 Intake Total 20 100 100 21.2 Output Total 200 100 Balance -180 100 0 21.2 Meds/Results Medications: Active Medications Generic Name Dose Route Start Last Admin Trade Name Freq PRN Reason Stop Dose Admin Artificial Tears 0 drop 09/06/20 14:00 09/14/20 12:31 Artificial Tears Op Soln 15 Ml Bottle EACH EYE 2 drop Q12H PRN Administration Dry Eye(s) Atropine Sulfate 1 d
[2020-09-18] MEDS: GLYCOPYRROLATE INJ (*SP) 0.2 MG/ML VIAL 0.1 MG IV PUSH ×2 (06:03→19:27)
[2020-09-18 14:00] VITALS: BP 137/64; PULSE 93; RESP 16; TEMP 36.8; O2SAT 92
[2020-09-18] MEDS: HYDROmorphone HCL/PF (*CRX) 50 MG in SODIUM CHLORIDE 0.9% IV 95 ML IV CONT (14:33)
[2020-09-18] MEDS: ATROPINE SULFATE 1% OPHTH SOLN 5 ML BOTTLE 1 DROP SUBLINGUAL (19:28)
--- NOTE | 2020-09-18 19:59 | PM.IMPN ---
Progress Note: A&P Assessment and Plan (1) Palliative care by specialist: Code(s): Z51.5 - Encounter for palliative care Status: Acute Assessment and Plan: Meets general inpatient requirements due to uncontrolled dyspnea and restlessness requiring continuous IV narcotic infusion for control Hydromorphone 0.5 milligrams/hour and 1 mg IV every 2 hours p.r.n. for breakthrough symptoms Remainder of palliative regimen as ordered Too unstable for transfer D/w daughter at bedside (2) Acute respiratory failure with hypoxia: Code(s): J96.01 - Acute respiratory failure with hypoxia Status: Resolved (3) Acute encephalopathy: Code(s): G93.40 - Encephalopathy, unspecified Status: Acute (4) Pneumonia due to COVID-19 virus: Code(s): U07.1 - COVID-19; J12.82 - Pneumonia due to coronavirus disease 2019 Status: Resolved (5) Aspiration of gastric contents: Qualifiers: Encounter type: sequela Qualified Code(s): T17.910S - Gastric contents in respiratory tract, part unspecified causing asphyxiation, sequela Code(s): T17.910A - Gastric contents in respiratory tract, part unspecified causing asphyxiation, initial encounter Status: Acute (6) Esophagitis: Code(s): K20.90 - Esophagitis, unspecified without bleeding Status: Acute (7) Dysphagia: Qualifiers: Dysphagia type: unspecified Qualified Code(s): R13.10 - Dysphagia, unspecified Code(s): R13.10 - Dysphagia, unspecified Status: Acute (8) Diabetes mellitus: Qualifiers: Diabetes mellitus complication status: without complication Diabetes mellitus security strategist insulin use: without security strategist use Diabetes mellitus type: type 2 Qualified Code(s): E11.9 - Type 2 diabetes mellitus without complications Code(s): E11.9 - Type 2 diabetes mellitus without complications Status: Chronic (9) Transaminitis: Code(s): R74.01 - Elevation of levels of liver transaminase levels Status: Acute (10) Acute renal failure: Qualifiers: Acute renal failure type: unspecified Qualified Code(s): N17.9 - Acute kidney failure, unspecified Code(s): N17.9 - Acute kidney failure, unspecified Status: Resolved (11) Hypernatremia: Code(s): E87.0 - Hyperosmolality and hypernatremia Status: Acute (12) Completed stroke: Code(s): I63.9 - Cerebral infarction, unspecified Status: Acute Subjective Date/time seen: 09/18/20 19:59 Interval history: Admitted 09/06 to inpatient hospice due to respiratory failure, sequelae of COVID-19 pneumonia. 09/18: Eyes open intermittently. Daughter at bedside. Review of Systems Review of Systems: ROS unobtainable: Yes unobtainable due to medical condition Exam Narrative: Exam Narrative: Sleeping and unresponsive to verbal or tactile stimuli Face without asymmetry Mucous membranes moist Neck no JVD Chest coarse breath sounds throughout Heart normal S1-S2 regular rate no audible murmur Abdomen hypoactive bowel sounds soft nontender no mass Extremities no edema cyanosis or clubbing Musculoskeletal symmetric tone Neurologic cranial nerves intact to inspection Objective Data Vital Signs Vital Signs: Vital Signs - 24 hr 09/17/20 20:00 09/18/20 14:00 Temperature 97.6 F 98.2 F Pulse Rate 92 93 Respiratory Rate 10 L 16 Blood Pressure 119/53 L 137/64 Pulse Oximetry 89 L 92 Intake/Output Intake/Output: Intake & Output 09/15/20 09/16/20 09/17/20 09/18/20 23:59 23:59 23:59 23:59 Intake Total 100 100 21.2 64.6 Output Total 100 125 Balance 100 0 21.2 -60.4 Meds/Results Medications: Active Medications Generic Name Dose Route Start Last Admin Trade Name Freq PRN Reason Stop Dose Admin Artificial Tears 0 drop 09/06/20 14:00 09/14/20 12:31 Artificial Tears Op Soln 15 Ml Bottle EACH EYE 2 drop Q12H PRN Administration Dry Eye(s) Atropine Sulfate
[2020-09-18 20:00] VITALS: BP 136/69; PULSE 95; RESP 12; TEMP 36.7; O2SAT 90
[2020-09-19] MEDS: GLYCOPYRROLATE INJ (*SP) 0.2 MG/ML VIAL 0.1 MG IV PUSH ×5 (05:33→22:13)
[2020-09-19] MEDS: ATROPINE SULFATE 1% OPHTH SOLN 5 ML BOTTLE 1 DROP SUBLINGUAL ×4 (05:33→17:33)
[2020-09-19] MEDS: LORazepam INJ (*CRX) 2 MG/ML VIAL 1 MG IV PUSH (13:47)
[2020-09-19] MEDS: HYDROmorphone HCL/PF (*CRX) 50 MG in SODIUM CHLORIDE 0.9% IV 95 ML IV CONT (13:52)
[2020-09-19 14:00] VITALS: BP 99/62; PULSE 104; RESP 16; TEMP 36.5; O2SAT 76
[2020-09-19 17:18] VITALS: BP 62/51; PULSE 110; RESP 14; TEMP 36.5; O2SAT 93
[2020-09-19 19:24] VITALS: BP 104/58; PULSE 105; RESP 16; TEMP 36.8; O2SAT 92
--- NOTE | 2020-09-19 19:25 | PM.IMPN ---
Progress Note: A&P Assessment and Plan (1) Palliative care by specialist: Code(s): Z51.5 - Encounter for palliative care Status: Acute Assessment and Plan: Meets general inpatient requirements due to uncontrolled dyspnea and restlessness requiring continuous IV narcotic infusion for control Hydromorphone 0.5 milligrams/hour and 1 mg IV every 2 hours p.r.n. for breakthrough symptoms Remainder of palliative regimen as ordered Too unstable for transfer D/w daughter at bedside (2) Acute respiratory failure with hypoxia: Code(s): J96.01 - Acute respiratory failure with hypoxia Status: Resolved (3) Acute encephalopathy: Code(s): G93.40 - Encephalopathy, unspecified Status: Acute (4) Pneumonia due to COVID-19 virus: Code(s): U07.1 - COVID-19; J12.82 - Pneumonia due to coronavirus disease 2019 Status: Resolved (5) Aspiration of gastric contents: Qualifiers: Encounter type: sequela Qualified Code(s): T17.910S - Gastric contents in respiratory tract, part unspecified causing asphyxiation, sequela Code(s): T17.910A - Gastric contents in respiratory tract, part unspecified causing asphyxiation, initial encounter Status: Acute (6) Esophagitis: Code(s): K20.90 - Esophagitis, unspecified without bleeding Status: Acute (7) Dysphagia: Qualifiers: Dysphagia type: unspecified Qualified Code(s): R13.10 - Dysphagia, unspecified Code(s): R13.10 - Dysphagia, unspecified Status: Acute (8) Diabetes mellitus: Qualifiers: Diabetes mellitus complication status: without complication Diabetes mellitus retirement insulin use: without medical terminologist use Diabetes mellitus type: type 2 Qualified Code(s): E11.9 - Type 2 diabetes mellitus without complications Code(s): E11.9 - Type 2 diabetes mellitus without complications Status: Chronic (9) Transaminitis: Code(s): R74.01 - Elevation of levels of liver transaminase levels Status: Acute (10) Acute renal failure: Qualifiers: Acute renal failure type: unspecified Qualified Code(s): N17.9 - Acute kidney failure, unspecified Code(s): N17.9 - Acute kidney failure, unspecified Status: Resolved (11) Hypernatremia: Code(s): E87.0 - Hyperosmolality and hypernatremia Status: Acute (12) Completed stroke: Code(s): I63.9 - Cerebral infarction, unspecified Status: Acute Subjective Date/time seen: 09/19/20 19:25 Interval history: Admitted 09/06 to inpatient hospice due to respiratory failure, sequelae of COVID-19 pneumonia. 09/19: Slept all day. Black drainage from g-tube earlier today. Daughter and at bedside. Review of Systems Review of Systems: ROS unobtainable: Yes unobtainable due to medical condition Exam Narrative: Exam Narrative: Sleeping and unresponsive to verbal or tactile stimuli Face without asymmetry Mucous membranes dry Neck no JVD Chest coarse breath sounds throughout Heart normal S1-S2 regular rate no audible murmur Abdomen hypoactive bowel sounds soft nontender, distended but soft Extremities feet cyanotic and cool Musculoskeletal symmetric tone Neurologic cranial nerves intact to inspection Objective Data Vital Signs Vital Signs: Vital Signs - 24 hr 09/18/20 20:00 09/19/20 14:00 09/19/20 17:18 Temperature 98.0 F 97.7 F 97.7 F Pulse Rate 95 104 H 110 H Respiratory Rate 12 16 14 Blood Pressure 136/69 99/62 L 62/51 L Pulse Oximetry 90 76 L 93 09/19/20 19:24 Temperature 98.2 F Pulse Rate 105 H Respiratory Rate 16 Blood Pressure 104/58 L Pulse Oximetry 92 Intake/Output Intake/Output: Intake & Output 09/16/20 09/17/20 09/18/20 09/19/20 23:59 23:59 23:59 23:59 Intake Total 100 21.2 64.6 37 Output Total 100 125 Balance 0 21.2 -60.4 37 Meds/Results Medications: Active Medications Generic Name Dose Route Start Last Admin Trade Name Jaycob
[2020-09-20] MEDS: GLYCOPYRROLATE INJ (*SP) 0.2 MG/ML VIAL 0.1 MG IV PUSH ×4 (04:28→22:51)
[2020-09-20 08:00] VITALS: BP 117/56; PULSE 106; RESP 16; TEMP 37.3; O2SAT 85
[2020-09-20] MEDS: HYDROmorphone HCL/PF (*CRX) 50 MG in SODIUM CHLORIDE 0.9% IV 95 ML IV CONT (17:35)
[2020-09-20 19:27] VITALS: BP 115/57; PULSE 106; RESP 12; TEMP 36.6; O2SAT 85
[2020-09-21 08:00] VITALS: BP 117/59; PULSE 104; RESP 15; TEMP 37.4; O2SAT 93
[2020-09-21] MEDS: GLYCOPYRROLATE INJ (*SP) 0.2 MG/ML VIAL 0.1 MG IV PUSH ×2 (11:32→20:27)
--- NOTE | 2020-09-21 14:27 | PM.IMPN ---
Progress Note: A&P Assessment and Plan (1) Palliative care by specialist: Code(s): Z51.5 - Encounter for palliative care Status: Acute Assessment and Plan: Meets general inpatient requirements due to uncontrolled dyspnea and restlessness requiring continuous IV narcotic infusion for control Hydromorphone 0.5 milligrams/hour and 1 mg IV every 2 hours p.r.n. for breakthrough symptoms Remainder of palliative regimen as ordered Too unstable for transfer (2) Acute respiratory failure with hypoxia: Code(s): J96.01 - Acute respiratory failure with hypoxia Status: Resolved (3) Acute encephalopathy: Code(s): G93.40 - Encephalopathy, unspecified Status: Acute (4) Pneumonia due to COVID-19 virus: Code(s): U07.1 - COVID-19; J12.82 - Pneumonia due to coronavirus disease 2019 Status: Resolved (5) Aspiration of gastric contents: Qualifiers: Encounter type: sequela Qualified Code(s): T17.910S - Gastric contents in respiratory tract, part unspecified causing asphyxiation, sequela Code(s): T17.910A - Gastric contents in respiratory tract, part unspecified causing asphyxiation, initial encounter Status: Acute (6) Esophagitis: Code(s): K20.90 - Esophagitis, unspecified without bleeding Status: Acute (7) Dysphagia: Qualifiers: Dysphagia type: unspecified Qualified Code(s): R13.10 - Dysphagia, unspecified Code(s): R13.10 - Dysphagia, unspecified Status: Acute (8) Diabetes mellitus: Qualifiers: Diabetes mellitus type: type 2 Diabetes mellitus watermelon inspector insulin use: without watermelon inspector use Diabetes mellitus complication status: without complication Qualified Code(s): E11.9 - Type 2 diabetes mellitus without complications Code(s): E11.9 - Type 2 diabetes mellitus without complications Status: Chronic (9) Transaminitis: Code(s): R74.01 - Elevation of levels of liver transaminase levels Status: Acute (10) Acute renal failure: Qualifiers: Acute renal failure type: unspecified Qualified Code(s): N17.9 - Acute kidney failure, unspecified Code(s): N17.9 - Acute kidney failure, unspecified Status: Resolved (11) Hypernatremia: Code(s): E87.0 - Hyperosmolality and hypernatremia Status: Acute (12) Completed stroke: Code(s): I63.9 - Cerebral infarction, unspecified Status: Acute Subjective Date/time seen: 09/20/20 09:30 Interval history: 09/20: Telemedicine visit via hospice home care coordinatorNidia, at bedside. Patient remains comfortable. Review of Systems Review of Systems: ROS unobtainable: Yes unobtainable due to mental status Exam Narrative: Exam Narrative: Breathing unlabored Objective Data Vital Signs Vital Signs: Vital Signs - 24 hr 09/20/20 19:27 09/21/20 08:00 Temperature 97.9 F 99.3 F Pulse Rate 106 H 104 H Respiratory Rate 12 15 Blood Pressure 115/57 L 117/59 L Pulse Oximetry 85 L 93 Intake/Output Intake/Output: Intake & Output 09/18/20 09/19/20 09/20/20 09/21/20 23:59 23:59 23:59 23:59 Intake Total 64.6 37 33.0 24.1 Output Total 125 Balance -60.4 37 33.0 24.1 Meds/Results Medications: Active Medications Generic Name Dose Route Start Last Admin Trade Name Freq PRN Reason Stop Dose Admin Artificial Tears 0 drop 09/06/20 14:00 09/14/20 12:31 Artificial Tears Op Soln 15 Ml Bottle EACH EYE 2 drop Q12H PRN Administration Dry Eye(s) Atropine Sulfate 1 drop 09/08/20 12:25 09/19/20 17:33 Atropine Sulfate 1% Ophth Soln 5 Ml Bottle SUBLINGUAL 1 drop Q4H PRN Administration Secretions Bisacodyl 10 mg 09/06/20 14:00 Bisacodyl 10 Mg Suppository RECTAL DAILY PRN Constipation Glycopyrrolate 0.1 mg 09/06/20 13:58 09/21/20 11:32 Glycopyrrolate Inj (*Sp) 0.2 Mg/Ml Vial IV PUSH 0.1 mg Q4H PRN Administration SECRETIONS Hydromorphone HCl 1 mg
[2020-09-21] MEDS: HYDROmorphone HCL/PF (*CRX) 50 MG in SODIUM CHLORIDE 0.9% IV 95 ML IV CONT (16:45)
[2020-09-21 19:31] VITALS: BP 120/61; PULSE 107; RESP 15; TEMP 37.1; O2SAT 95
[2020-09-21] MEDS: LORazepam INJ (*CRX) 2 MG/ML VIAL 1 MG IV PUSH (20:27)
[2020-09-22 05:01] VITALS: BP 130/62; PULSE 117; RESP 28; TEMP 37.9; O2SAT 95
[2020-09-22] MEDS: GLYCOPYRROLATE INJ (*SP) 0.2 MG/ML VIAL 0.1 MG IV PUSH (10:05)
[2020-09-22] MEDS: LORazepam INJ (*CRX) 2 MG/ML VIAL 1 MG IV PUSH ×2 (10:06→14:18)
[2020-09-22 10:17] VITALS: TEMP 38.2
[2020-09-22 10:47] VITALS: TEMP 37.3
[2020-09-22] MEDS: HYDROmorphone HCL INJ (*CRX) 1 MG/ML SYR IV PUSH (11:51)
--- NOTE | 2020-09-22 11:53 | PM.IMPN ---
Progress Note: A&P Assessment and Plan (1) Palliative care by specialist: Code(s): Z51.5 - Encounter for palliative care Status: Acute Assessment and Plan: Meets general inpatient requirements due to uncontrolled dyspnea and restlessness requiring continuous IV narcotic infusion for control Hydromorphone 0.5 milligrams/hour and 1 mg IV every 2 hours p.r.n. for breakthrough symptoms Remainder of palliative regimen as ordered Too unstable for transfer (2) Acute respiratory failure with hypoxia: Code(s): J96.01 - Acute respiratory failure with hypoxia Status: Resolved (3) Acute encephalopathy: Code(s): G93.40 - Encephalopathy, unspecified Status: Acute (4) Pneumonia due to COVID-19 virus: Code(s): U07.1 - COVID-19; J12.82 - Pneumonia due to coronavirus disease 2019 Status: Resolved (5) Aspiration of gastric contents: Qualifiers: Encounter type: sequela Qualified Code(s): T17.910S - Gastric contents in respiratory tract, part unspecified causing asphyxiation, sequela Code(s): T17.910A - Gastric contents in respiratory tract, part unspecified causing asphyxiation, initial encounter Status: Acute (6) Esophagitis: Code(s): K20.90 - Esophagitis, unspecified without bleeding Status: Acute (7) Dysphagia: Qualifiers: Dysphagia type: unspecified Qualified Code(s): R13.10 - Dysphagia, unspecified Code(s): R13.10 - Dysphagia, unspecified Status: Acute (8) Diabetes mellitus: Qualifiers: Diabetes mellitus type: type 2 Diabetes mellitus termite treater helper insulin use: without termite treater helper use Diabetes mellitus complication status: without complication Qualified Code(s): E11.9 - Type 2 diabetes mellitus without complications Code(s): E11.9 - Type 2 diabetes mellitus without complications Status: Chronic (9) Transaminitis: Code(s): R74.01 - Elevation of levels of liver transaminase levels Status: Acute (10) Acute renal failure: Qualifiers: Acute renal failure type: unspecified Qualified Code(s): N17.9 - Acute kidney failure, unspecified Code(s): N17.9 - Acute kidney failure, unspecified Status: Resolved (11) Hypernatremia: Code(s): E87.0 - Hyperosmolality and hypernatremia Status: Acute (12) Completed stroke: Code(s): I63.9 - Cerebral infarction, unspecified Status: Acute Subjective Date/time seen: 09/21/20 09:30 Interval history: 09/21: Telemedicine visit via hospice clinical marketerNidia, at bedside. Patient remains comfortable. Review of Systems Review of Systems: ROS unobtainable: Yes unobtainable due to mental status Exam Narrative: Exam Narrative: Breathing unlabored Objective Data Vital Signs Vital Signs: Vital Signs - 24 hr 09/21/20 19:31 09/22/20 05:01 09/22/20 10:17 Temperature 98.8 F 100.3 F H 100.8 F H Pulse Rate 107 H 117 H Respiratory Rate 15 28 H Blood Pressure 120/61 130/62 Pulse Oximetry 95 95 Intake/Output Intake/Output: Intake & Output 09/19/20 09/20/20 09/21/20 09/22/20 23:59 23:59 23:59 23:59 Intake Total 37 33.0 33.1 Output Total 20 0 Balance 37 33.0 13.1 0 Meds/Results Medications: Active Medications Generic Name Dose Route Start Last Admin Trade Name Freq PRN Reason Stop Dose Admin Artificial Tears 0 drop 09/06/20 14:00 09/14/20 12:31 Artificial Tears Op Soln 15 Ml Bottle EACH EYE 2 drop Q12H PRN Administration Dry Eye(s) Atropine Sulfate 1 drop 09/08/20 12:25 09/19/20 17:33 Atropine Sulfate 1% Ophth Soln 5 Ml Bottle SUBLINGUAL 1 drop Q4H PRN Administration Secretions Bisacodyl 10 mg 09/06/20 14:00 Bisacodyl 10 Mg Suppository RECTAL DAILY PRN Constipation Glycopyrrolate 0.1 mg 09/06/20 13:58 09/22/20 10:05 Glycopyrrolate Inj (*Sp) 0.2 Mg/Ml Vial IV PUSH 0.1 mg Q4H PRN Administration SECRETIONS Hydromo
--- NOTE | 2020-09-22 11:57 | PM.IMPN ---
Progress Note: A&P Assessment and Plan (1) Palliative care by specialist: Code(s): Z51.5 - Encounter for palliative care Status: Acute Assessment and Plan: Meets general inpatient requirements due to uncontrolled dyspnea and restlessness requiring continuous IV narcotic infusion for control Hydromorphone to 1 milligrams/hour and 1 mg IV every 2 hours p.r.n. for breakthrough symptoms Remainder of palliative regimen as ordered Too unstable for transfer (2) Acute respiratory failure with hypoxia: Code(s): J96.01 - Acute respiratory failure with hypoxia Status: Resolved (3) Acute encephalopathy: Code(s): G93.40 - Encephalopathy, unspecified Status: Acute (4) Pneumonia due to COVID-19 virus: Code(s): U07.1 - COVID-19; J12.82 - Pneumonia due to coronavirus disease 2019 Status: Resolved (5) Aspiration of gastric contents: Qualifiers: Encounter type: sequela Qualified Code(s): T17.910S - Gastric contents in respiratory tract, part unspecified causing asphyxiation, sequela Code(s): T17.910A - Gastric contents in respiratory tract, part unspecified causing asphyxiation, initial encounter Status: Acute (6) Esophagitis: Code(s): K20.90 - Esophagitis, unspecified without bleeding Status: Acute (7) Dysphagia: Qualifiers: Dysphagia type: unspecified Qualified Code(s): R13.10 - Dysphagia, unspecified Code(s): R13.10 - Dysphagia, unspecified Status: Acute (8) Diabetes mellitus: Qualifiers: Diabetes mellitus complication status: without complication Diabetes mellitus buttermaker helper insulin use: without buttermaker helper use Diabetes mellitus type: type 2 Qualified Code(s): E11.9 - Type 2 diabetes mellitus without complications Code(s): E11.9 - Type 2 diabetes mellitus without complications Status: Chronic (9) Transaminitis: Code(s): R74.01 - Elevation of levels of liver transaminase levels Status: Acute (10) Acute renal failure: Qualifiers: Acute renal failure type: unspecified Qualified Code(s): N17.9 - Acute kidney failure, unspecified Code(s): N17.9 - Acute kidney failure, unspecified Status: Resolved (11) Hypernatremia: Code(s): E87.0 - Hyperosmolality and hypernatremia Status: Acute (12) Completed stroke: Code(s): I63.9 - Cerebral infarction, unspecified Status: Acute Subjective Date/time seen: 09/22/20 11:57 Interval history: 09/22: Patient remains comfortable. Febrile today. Review of Systems Review of Systems: ROS unobtainable: Yes unobtainable due to mental status Exam Narrative: Exam Narrative: Breathing unlabored Sclerae nonicteric. mucosa dry no jvd chest coarse heart rr abd soft hypoactive extr no cce, warm ms symmetric tone neuro cn w/o asymmetry to inspection Objective Data Vital Signs Vital Signs: Vital Signs - 24 hr 09/21/20 19:31 09/22/20 05:01 09/22/20 10:17 Temperature 98.8 F 100.3 F H 100.8 F H Pulse Rate 107 H 117 H Respiratory Rate 15 28 H Blood Pressure 120/61 130/62 Pulse Oximetry 95 95 Intake/Output Intake/Output: Intake & Output 09/19/20 09/20/20 09/21/20 09/22/20 23:59 23:59 23:59 23:59 Intake Total 37 33.0 33.1 Output Total 20 0 Balance 37 33.0 13.1 0 Meds/Results Medications: Active Medications Generic Name Dose Route Start Last Admin Trade Name Freq PRN Reason Stop Dose Admin Artificial Tears 0 drop 09/06/20 14:00 09/14/20 12:31 Artificial Tears Op Soln 15 Ml Bottle EACH EYE 2 drop Q12H PRN Administration Dry Eye(s) Atropine Sulfate 1 drop 09/08/20 12:25 09/19/20 17:33 Atropine Sulfate 1% Ophth Soln 5 Ml Bottle SUBLINGUAL 1 drop Q4H PRN Administration Secretions Bisacodyl 10 mg 09/06/20 14:00 Bisacodyl 10 Mg Suppository RECTAL DAILY PRN Constipation Glycopyrrolate 0.1 mg 09/06/20 13:58 09/10
[2020-09-22 14:00] VITALS: BP 99/43; PULSE 136; RESP 27; TEMP 37; O2SAT 76
--- NOTE | 2020-09-25 09:58 | PM.DDS ---
Discharge Sum: Prov Provider Primary care physician: Luisito Easton, Admitting provider: Hermann Hilton MD Discharge Sum: Diag Contributing Factors (1) Acute respiratory failure with hypoxia: (2) Acute encephalopathy: (3) Pneumonia due to COVID-19 virus: (4) Aspiration of gastric contents: (5) Esophagitis: (6) Dysphagia: (7) Diabetes mellitus: (8) Transaminitis: (9) Acute renal failure: (10) Hypernatremia: (11) Completed stroke: Discharge Sum: Summary Date and Time Date of admission: 09/06/20 13:09 Summary Details: 85 year old female was admitted to acute care on August 15 after being found down in her apartment for an unknown amount of time. She had been feeling ill and not eating or drinking well for a couple of weeks. She tested positive for COVID-19 admission. She was treated with room vest severe and steroids. She required endotracheal intubation. She had encephalopathy. She had cerebral vascular disease with multiple small strokes. Because of her failure to awaken enough to wean from the ventilator her daughter who is also power of commercial real estate attorney opted for comfort care. She was extubated on September 05. She survived the night with comfort measures. Because of this she was admitted inpatient hospice service. At this point she is bed-bound and unresponsive unable to eat or drink or make her needs known. Medication was titrated to comfort. The patient declined very gradually and was too unstable to discharge. She continued to required continuous IV hydromorphone with intermittent IV lorazepam for symptom control. The required adjustment during hospitalization. She peacefully. Additional Data Attending physician: Hermann Hilton MD
== END 2020-09-22 15:23 | disposition expired | DRG 951 ==
LOC: ANHICU 15:27 → ANH2MED 19:51
PROVIDERS: Admitting Provider Internal Medicine; PCP Internal Medicine; Visit Provider Internal Medicine
DX: Z51.5 Encounter for palliative care (principal); J96.01 Acute respiratory failure with hypoxia; I63.9 Cerebral infarction, unspecified; G93.40 Encephalopathy, unspecified; E87.0 Hyperosmolality and hypernatremia; N17.9 Acute kidney failure, unspecified; B94.8 Sequelae of other specified infectious and parasitic diseases; T17.9 Foreign body in respiratory tract, part unspecified; K20.90 Esophagitis, unspecified without bleeding; R13.10 Dysphagia, unspecified; E11.9 Type 2 diabetes mellitus without complications; R74.01 Elevation of levels of liver transaminase levels; Z74.01 Bed confinement status
CPT/HCPCS: A9270; J0131; J1170; J2060